=== PATIENT | female | born 1935 | race Caucasian/White ===

== ENCOUNTER 2016-12-23 19:12 | Inpatient (IN) | payer OTHER, MEDICARE ==
--- NOTE | 2016-12-23 20:43 | PDOC ---
History of Present Illness - General History Source: Patient, Family (Son) Exam Limitations: No Limitations - History of Present Illness Initial Comments: 12/23/16 21:42 The patient is an 81 year old female with a significant PMH of HTN who presents to the emergency department after becoming concerned over self-checked blood pressure earlier today. The patient reports checking her blood pressure this evening and noting it was in the 180 range, prompting her visit. The patient son reports that the patient has been checking her blood pressure for about the last 2 weeks after having her medication changed by Dr. Hargrove. The patients son notes that the patient used to take 5 mg Bystolic which was changed to 10 mg Bystolic 2 weeks ago. She also notes that she was prescribed 2.5 mg Amlodipine and another medication which she does not remember 2 weeks ago. The patient reports waking up in the morning and sometimes feeling lightheaded which resolves on its own. The patients son also notes that the patient has complained of a loss of balance about 3 times within the past month. The patient denies any dietary changes. The patient denies trouble sleeping. The patient denies chest pain, shortness of breath, headache and dizziness. Denies fever, chills, nausea, vomit, diarrhea and constipation. Denies dysuria, frequency, urgency and hematuria. Allergies: Codeine Past surgical history: Appendectomy. Social history: No reported cigarette, alcohol, or drug use. PCP: Dr. Chanel Drum Maker: Dr. Hargrove <Jeremías Wheeler - Last Filed: 12/24/16 01:01> <Kinza Jane - Last Filed: 12/24/16 04:40> - General Chief Complaint: Blood Pressure Problem Stated Complaint: HYPERTENSION Time Seen by Provider: 12/23/16 19:34 Past History <Jeremías Wheeler - Last Filed: 12/24/16 01:01> - Past Medical History HTN: Yes - Surgical History Appendectomy: Yes - Suicide/Smoking/Psychosocial Hx Smoking History: Never smoked Have you smoked in the past 12 months: No Information on smoking cessation initiated: No Hx Alcohol Use: No Drug/Substance Use Hx: No Substance Use Type: None <Kinza Jane - Last Filed: 12/24/16 04:40> - Past Medical History Allergies/Adverse Reactions: Allergies Allergy/AdvReac Type Severity Reaction Status Date / Time codeine AdvReac Verified 12/23/16 19:32 Home Medications: Ambulatory Orders Nebivolol [Bystolic -] 10 mg PO DAILY 10/19/13 Amlodipine Besylate [Norvasc -] 2.5 mg PO DAILY 12/24/16 Hydrochlorothiazide 25 mg PO DAILY 12/24/16 Review of Systems - Review of Systems Able to Perform ROS?: Yes Comments:: 12/23/16 21:42 GENERAL/CONSTITUTIONAL: No fever or chills. No weakness. HEAD, EYES, EARS, NOSE AND THROAT: No change in vision. No ear pain or discharge. No sore throat. CARDIOVASCULAR: No chest pain or shortness of breath. RESPIRATORY: No cough, wheezing, or hemoptysis. GASTROINTESTINAL: No nausea, vomiting, diarrhea or constipation. GENITOURINARY: No dysuria, frequency, or change in urination. MUSCULOSKELETAL: No joint or muscle swelling or pain. No neck or back pain. SKIN: No rash NEUROLOGIC: No headache, vertigo, loss of consciousness, or change in strength/ sensation. ENDOCRINE: No increased thirst. No abnormal weight change. HEMATOLOGIC/LYMPHATIC: No anemia, easy bleeding, or history of blood clots. ALLERGIC/IMMUNOLOGIC: No hives or skin allergy. <Jeremías Wheeler - Last Filed: 12/24/16 01:01> *Physical Exam - Vital Signs Last Vital Signs Temp Pulse Resp BP Pulse Ox 97.7 F 73 20 190/88 99 12/23/16 19:32 12/23/16 19:32 12/23/16 19:32 12/23/16 19:32 12/23/16 19:32 - Physical Exam Comments: 12/23/16 21:42 GENERAL: Awake, alert, and fully oriented, in no acute distress HEAD: No signs of trauma EYES: PERRLA, EOMI, sclera anicteric, conjunctiva clear ENT: Auricles normal inspection, hearing grossly normal, nares patent, oropharynx clear without exudates. Moist mucosa NECK: Normal ROM, supple, no lymphadenopathy, JVD, or masses LUNGS: Breath sounds equal, clear to auscultation bilaterally. No wheezes, and no crackles HEART: Regular rate and rhythm, normal S1 and S2, no murmurs, rubs or gallops ABDOMEN: Soft, nontender, normoactive bowel sounds. No guarding, no rebound. No masses EXTREMITIES: Normal range of motion, no edema. No clubbing or cyanosis. No cords, erythema, or tenderness NEUROLOGICAL: Cranial nerves II through XII grossly intact. Normal speech. SKIN: Warm, Dry, normal turgor, no rashes or lesions noted. <Jeremías Wheeler - Last Filed: 12/24/16 01:01> - Vital Signs Last Vital Signs Temp Pulse Resp BP Pulse Ox 97.7 F 73 20 190/88 99 12/23/16 19:32 12/23/16 19:32 12/23/16 19:32 12/23/16 19:32 12/23/16 19:32 <Kinza Jane - Last Filed: 12/24/16 04:40> ED Treatment Course - LABORATORY CBC & Chemistry Diagram: 12/23/16 12:27 12/23/16 23:40 - ADDITIONAL ORDERS Additional order review: 12/23/16 12:27 RBC 4.12 MCV 91.4 MCHC 34.8 RDW 12.7 MPV 7.5 D Neutrophils % 78.9 Lymphocytes % 11.3 D Monocytes % 9.0 Eosinophils % 0.5 Basophils % 0.3 - Additional Consults Consult/PCP: Braeden Hargrove MD (Cardiology) Consult/PCP: Parminder Anderson DO (Nephrology) <Jeremías Wheeler - Last Filed: 12/24/16 01:01> - LABORATORY CBC & Chemistry Diagram: 12/23/16 12:27 12/24/16 02:45 <Kinza Jane - Last Filed: 12/24/16 04:40> Medical Decision Making - Medical Decision Making 12/23/16 22:33 Pt's BP when I examined her 179/80 on right arm and 152/60 on the left arm I paged Dr. Chanel, PMD; he is being covered by the hospitalists today. I spoke to Dr. Barrientos who is covering Dr. Hargrove; he wants us to give amlodipine 5mg for the HTN today, and 10mg amlodipine starting tomorrow. I spoke to Dr. Anderson, renal, who thinks that given pt's mental status is completely normal, this may reflect the fact that she has decreased sodium intake and she may be reacting to the HCTZ/water pill that her conductor freight prescribed for her recently. 12/24/16 04:38 Despite 250ml NSS bolus, pt's serum Na+ felll from 117 to 115. Pt will be admitted to the ICU; Dr. Anderson is aware; ICU BIOFUELS PLANT SUPERINTENDENT is aware; Hospitalist Dr. Galeas is aware. <Kinza Jane - Last Filed: 12/24/16 04:40> *DC/Admit/Observation/Transfer - Attestations Scribe Attestion: 12/23/16 21:42 Documentation prepared by Jeremías Wheeler, acting as biomedical engineering technician for Kinza Jane MD. <Jeremías Wheeler - Last Filed: 12/24/16 01:01> - Discharge Dispostion Admit: Yes <Kinza Jane - Last Filed: 12/24/16 04:40> Diagnosis at time of Disposition: Hyponatremia - Discharge Dispostion Condition at time of disposition: Poor
[2016-12-23 21:32] LABS: BASOPHIL 0.3 % (0-2.0); EOSINOPHIL 0.5 % (0-4.5); MCH 31.9 pg (25.7-33.7); MCHC 34.8 g/dl (32.0-36.0); MEAN CELL VOLUME 91.4 fl (80-96); MEAN PLT VOLUME 7.5 fl (7.5-11.1); NEUTROPHILS 78.9 % (42.8-82.8); PLATELET COUNT 250 K/MM3 (134-434); RDW 12.7 % (11.6-15.6); WHITE BLOOD COUNT 10.1 K/mm3 (4.0-10.0)
[2016-12-23 22:04] LABS: ALBUMIN 3.4 g/dl (3.4-5.0); ANION GAP 12 (8-16); BILIRUBIN,TOTAL 0.5 mg/dL (0.2-1.0); CALCIUM 8.4 mg/dL (8.5-10.1); CO2 26 mmol/L (21-32); CREATININE 0.6 mg/dL (0.55-1.02); GLUCOSE,RANDOM 110 mg/dL (74-106); SGOT/AST 24 U/L (15-37); SGPT/ALT 23 U/L (12-78); TOT PROT 7.1 g/dl (6.4-8.2)
[2016-12-23 22:07] LABS: ALK PHOS 74 U/L (45-117); CPK 204 IU/L (26-192); TROPONIN I < 0.02 ng/ml (0.00-0.05)
[2016-12-23] MEDS ORDERED: SODIUM CHLORIDE 0.9% 500 ML INFUS.BAG IV ONE ×2 (22:09→22:17)
[2016-12-23] MEDS ORDERED: amLODIPine BESYLATE 5 MG TABLET (FP) PO ONE (22:17)
--- NOTE | 2016-12-23 22:17 | CON.CARD ---
Consult Consult Specialty:: Cardiology for Delvin Reason for Consultation:: hyponatremia htn - History of Present Illness History of Present Illness: The patient is an 81 year old female with a significant PMH of HTN who presents to the emergency department after becoming concerned over self-checked blood pressure earlier today. The patient reports checking her blood pressure this evening and noting it was in the 180 range, prompting her visit. The patient son reports that the patient has been checking her blood pressure for about the last 2 weeks after having her medication changed by Dr. Hargrove. The patients son notes that the patient used to take 5 mg Bystolic which was changed to 10 mg Bystolic 2 weeks ago. She also notes that she was prescribed 2.5 mg Amlodipine and another medication which she does not remember 2 weeks ago. The patient reports waking up in the morning and sometimes feeling lightheaded which resolves on its own. The patients son also notes that the patient has complained of a loss of balance about 3 times within the past month. The patient denies chest pain, shortness of breath, headache and dizziness. Denies fever, chills, nausea, vomit, diarrhea and constipation. Denies dysuria, frequency, urgency and hematuria. Allergies: Codeine Past surgical history: Appendectomy. Social history: No reported cigarette, alcohol, or drug use. PCP: Dr. Chanel Roll Up Helper: Dr. Hargrove - History Source History Provided By: Patient, Medical Record - Past Medical History Cardio/Vascular: Yes: HTN - Alcohol/Substance Use Hx Alcohol Use: No - Smoking History Smoking history: Never smoked Have you smoked in the past 12 months: No Home Medications - Allergies Allergies/Adverse Reactions: Allergies Allergy/AdvReac Type Severity Reaction Status Date / Time codeine AdvReac Verified 12/23/16 19:32 - Home Medications Home Medications: Ambulatory Orders Nebivolol [Bystolic -] 10 mg PO DAILY 10/19/13 Amlodipine Besylate [Norvasc -] 2.5 mg PO DAILY 12/24/16 Hydrochlorothiazide 25 mg PO DAILY 12/24/16 Review of Systems - Review of Systems Constitutional: reports: No Symptoms Eyes: reports: No Symptoms HENT: reports: No Symptoms Neck: reports: No Symptoms Cardiovascular: reports: No Symptoms Gastrointestinal: reports: No Symptoms Genitourinary: reports: No Symptoms Breasts: reports: No Symptoms Reported Musculoskeletal: reports: No Symptoms Integumentary: reports: No Symptoms Neurological: reports: Dizziness Endocrine: reports: No Symptoms Hematology/Lymphatic: reports: No Symptoms Psychiatric: reports: No Symptoms Vital Signs: Vital Signs Temperature 97.7 F 12/23/16 19:32 Pulse Rate 73 12/23/16 19:32 Respiratory Rate 20 12/23/16 19:32 Blood Pressure 190/88 12/23/16 19:32 O2 Sat by Pulse Oximetry (%) 99 12/23/16 19:32 Constitutional: Yes: Well Nourished, No Distress, Calm Eyes: Yes: WNL, Conjunctiva Clear, EOM Intact HENT: Yes: WNL, Atraumatic, Normocephalic Neck: Yes: WNL, Supple, Trachea Midline Respiratory: Yes: WNL, Regular, CTA Bilaterally Gastrointestinal: Yes: WNL, Normal Bowel Sounds Renal/: Yes: WNL Cardiovascular: Yes: WNL, Regular Rate and Rhythm Musculoskeletal: Yes: WNL Extremities: Yes: WNL Integumentary: Yes: WNL Neurological: Yes: WNL, Alert, Oriented ...Motor Strength: WNL Psychiatric: Yes: WNL, Alert, Oriented - Other Data Labs, Other Data: CBC, BMP 12/23/16 12:27 12/23/16 21:27 Troponin, BNP 12/23/16 21:27 Troponin I < 0.02 Troponin, BNP 12/23/16 21:27 Troponin I < 0.02 Imaging - Results Chest X-ray: Image Reviewed (no i/e) EKG: Image Reviewed (sr wnl) Assessment/Plan Imp HTN hyponatremia sIADH HCTZ induced? Plan free water restriction Amlodipine 5 mg now than 10 mg daily Renal consult re hyponatremia ICU monitoring Critical care time 70 min
[2016-12-23 22:34] LABS: URINE APPEARANCE SLCLOUDY; URINE BILIRUBIN NEGATIVE (NEGATIVE); URINE BLOOD 1+ (NEGATIVE); URINE COLOR LTYELLOW; URINE GLUCOSE (UA) NEGATIVE (NEGATIVE); URINE KETONE NEGATIVE (NEGATIVE); URINE NITRITE POSITIVE (NEGATIVE); URINE PROTEIN NEGATIVE (NEGATIVE); URINE UROBILINOGEN NEGATIVE mg/dL (0.2-1.0)
[2016-12-23] MEDS ORDERED: amLODIPine BESYLATE 5 MG TABLET (FP) ONE (22:37)
[2016-12-23 22:40] LABS: URINE BACTERIA RARE /hpf (NONE SEEN); URINE RBC 24; URINE WBC 28
[2016-12-23] MEDS ORDERED: CEFTRIAXONE 1 MG in DEXTROSE 5%-WATER - 50 ML IVPB ONE (23:06)
--- NOTE | 2016-12-23 23:24 | HP ---
Admitting History and Physical - Primary Care Physician PCP: Sarah Chanel - Admission Chief Complaint: High blood pressure History of Present Illness: Patient is an 81 year old female with a PMHx of HTN who presented today due to elevated BP of above 190. Patient and patient's son report that a week and a half ago a "water pill" was added to help control her blood pressure. Patient reports since starting the "water pill", in the morning she would feel dizzy and lightheaded. Patient's son reports that patient is very independent and still works every day at the [employer]. When speaking to the ED staff and the patient, the "water pill" that was started was HCTZ. However, patient denies any numbness, loss of consciousness, acute vision changes, dysuria, frequency. History Source: Patient, Family Member Limitations to Obtaining History: No Limitations - Past Medical History Cardiovascular: Yes: HTN - Past Surgical History Past Surgical History: Yes: Appendectomy - Smoking History Smoking history: Never smoked Have you smoked in the past 12 months: No - Alcohol/Substance Use Hx Alcohol Use: No History of Substance Use: reports: None - Social History Usual Living Arrangement: Yes: With Child ADL: Independent Occupation: Works at [employer] History of Recent Travel: No Home Medications - Allergies Allergies/Adverse Reactions: Allergies Allergy/AdvReac Type Severity Reaction Status Date / Time codeine AdvReac Verified 12/23/16 19:32 - Home Medications Home Medications: Ambulatory Orders Nebivolol [Bystolic -] 5 mg PO DAILY 10/19/13 Family Disease History - Family Disease History Family History: Denies Review of Systems - Review of Systems Constitutional: reports: Weakness. denies: Chills, Diaphoresis, Fever, Night Sweats Eyes: denies: Blind Spots, Floaters HENT: reports: No Symptoms. denies: Difficult Swallowing, Hearing Loss, Mouth Swelling Neck: reports: No Symptoms Cardiovascular: reports: No Symptoms. denies: Chest Pain, Edema, Palpitations, Shortness of Breath Respiratory: reports: No Symptoms. denies: Cough, SOB, SOB on Exertion, Wheezing Gastrointestinal: reports: No Symptoms. denies: Abdominal Pain, Bloating, Nausea, Vomiting, Vomiting Blood Genitourinary: reports: No Symptoms. denies: Burning, Discharge, Dysuria, Frequency Musculoskeletal: reports: Back Pain Neurological: reports: Dizziness, Unsteady Gait, Weakness. denies: Change in LOC, Change in Speech, Confusion, Headache, Incoordination, Numbness, Parasthesia, Seizure, Syncope, Tremors Endocrine: reports: No Symptoms. denies: Excessive Sweating, Flushing Psychiatric: reports: No Symptoms. denies: Anxiety, Depression, Hallucinations , Panic Physical Examination Vital Signs: Vital Signs Temperature 97.7 F 12/23/16 19:32 Pulse Rate 73 12/23/16 19:32 Respiratory Rate 20 12/23/16 19:32 Blood Pressure 190/88 12/23/16 19:32 O2 Sat by Pulse Oximetry (%) 99 12/23/16 19:32 Constitutional: Yes: Well Nourished, No Distress, Calm. No: Anxious, Cachectic Eyes: Yes: WNL, Conjunctiva Clear, EOM Intact, PERRL. No: Sclera Icterus, Tearing HENT: Yes: WNL, Atraumatic, Normocephalic Neck: Yes: WNL, Supple, Trachea Midline Cardiovascular: Yes: WNL, Regular Rate and Rhythm. No: Pulse Irregular, Bruit, JVD Respiratory: Yes: WNL, Regular, CTA Bilaterally Gastrointestinal: Yes: WNL, Normal Bowel Sounds, Soft Extremities: Yes: WNL. No: Calf Tenderness Edema: No Peripheral Pulses WNL: Yes ...Motor Strength: WNL Psychiatric: Yes: WNL, Alert, Oriented Labs: CBC, BMP 12/23/16 12:27 12/23/16 21:27 Assessment/Plan Patient is an 81 year old female with a PMHx of HTN who complained of elevated BP readings at home associated with weakness and dizziness in the mornings. Patient was found to have hyponatremia and admitted for further monitoring and management. Severe Hyponatremia with Mild Symptoms -Likely medication induced by HCTZ as patient started this medication a week and a half ago and one of the side effects is hyponatremia -Sodium level of 117 -Only sxs of weakness and dizziness in the morning when she takes the medicine -Free water restriction -Calculated serum osm 246 -Urine osm ordered -TSH ordered -250ml bolus IV NS given in ED -Will repeat BMP in 6 hours -ED contacted renal who recommended to repeat BMP once the 250 bolus of IV NS is given. Also reports that if patient is no severely or moderately symptomatic , no need for 3% saline at this time. HTN Urgency -SBP of 190 -Amlodipine 5mg given in ED -Will continue Amlodipine 10mg daily, as per cardiology -Continue to monitor BP Left lower back pain -Reports that it is chronic but has worsened today -Patient has history of scoliosis -U/A sent to rule out UTI Prophylaxis- Heparin 5000 units SQ Disposition- Will monitor in telemetry. Full H&P to follow Discussed case with Attending, Dr. Brandi Bond, PGY-2 Visit type - Emergency Visit Emergency Visit: Yes ED Registration Date: 12/24/16 Care time: The patient presented to the Emergency Department on the above date and was hospitalized for further evaluation of their emergent condition. - New Patient This patient is new to me today: Yes Date on this admission: 12/24/16 - Critical Care Critical Care patient: Yes Total Critical Care Time (in minutes): 45 Critical Care Statement: The care of this patient involved high complexity decision making to prevent further life threatening deterioration of the patient 's condition and/or to evaluate & treat vital organ system(s) failure or risk of failure.
[2016-12-24 00:15] LABS: ALBUMIN 3.2 g/dl (3.4-5.0); ANION GAP 12 (8-16); BILIRUBIN,TOTAL 0.5 mg/dL (0.2-1.0); CALCIUM 8.2 mg/dL (8.5-10.1); CO2 25 mmol/L (21-32); CREATININE 0.6 mg/dL (0.55-1.02); GLUCOSE,RANDOM 158 mg/dL (74-106); SGOT/AST 23 U/L (15-37); SGPT/ALT 20 U/L (12-78); TOT PROT 6.8 g/dl (6.4-8.2)
[2016-12-24 00:16] LABS: ALK PHOS 70 U/L (45-117)
--- NOTE | 2016-12-24 00:46 | HP ---
CHIEF COMPLAINT: elevated home BP PCP: Dr. Chanel Aerospace Engineer: Dr. Hargrove HISTORY OF PRESENT ILLNESS: 81yo F with PMH of htn presents s/p elevated home BP reading of SBP in 180s. Pt 's htn medication regimen recently (2 weeks ago) adjusted by Aerospace Engineer: HCTZ 25mg daily added, Amlodipine 2.5mg added, and Bystolic increased from 5 to 10mg daily. Since this adjustment pt reports feeling lightheaded in the morning, until she is able to eat some breakfast. Pt checks her BP daily and became concerned about this elevated reading today, prompting her to come to the ER. Pt denies headache, nausea, vomiting, change in vision, chest pain, sob, fever, chills. ER course was notable for: (1) CMP -> Na 117 (2) Norvasc 5mg, NS 250ml (3) Ceftriaxone 1 dose given Recent Travel: denies PAST MEDICAL HISTORY: htn PAST SURGICAL HISTORY: appendectomy Social History: Smoking: denies Alcohol: denies Drugs: denies Independent for ADLs. Allergies codeine Adverse Reaction (Verified 12/23/16 19:32) HOME MEDICATIONS: Home Medications Medication Instructions Recorded Nebivolol [Bystolic -] 5 mg PO DAILY 10/19/13 REVIEW OF SYSTEMS CONSTITUTIONAL: weakness Absent: fever, chills, diaphoresis, malaise, loss of appetite, weight change HEENT: Absent: rhinorrhea, nasal congestion, throat pain, difficulty swallowing, mouth swelling, ear pain, eye pain, visual changes CARDIOVASCULAR: Absent: chest pain, syncope, palpitations, irregular heart rate, lightheadedness , peripheral edema RESPIRATORY: Absent: cough, shortness of breath, dyspnea with exertion, wheezing, stridor GASTROINTESTINAL: Absent: abdominal pain, abdominal distension, nausea, vomiting, diarrhea, constipation, melena, hematochezia GENITOURINARY: Absent: dysuria, frequency, urgency, hesitancy, hematuria MUSCULOSKELETAL: back pain SKIN: Absent: rash, itching, pallor HEMATOLOGIC/IMMUNOLOGIC: Absent: easy bleeding, easy bruising, lymphadenopathy, frequent infections ENDOCRINE: Absent: unexplained weight gain, unexplained weight loss, heat intolerance, cold intolerance NEUROLOGIC: unsteady gait Absent: headache, dizziness, focal weakness or paresthesias, seizure, mental status changes PSYCHIATRIC: Absent: anxiety, depression, hallucinations. PHYSICAL EXAMINATION Vital Signs - 24 hr 12/23/16 19:32 Temperature 97.7 F Pulse Rate 73 Respiratory 20 Rate Blood Pressure 190/88 O2 Sat by Pulse 99 Oximetry (%) GENERAL: WNWD, Awake, alert, and fully oriented, in no acute distress. HEAD: Normal with no signs of trauma. EYES: Extraocular movements intact, sclera anicteric, conjunctiva clear. No lid lag. EARS, NOSE, THROAT: Oropharynx clear without exudates. Moist mucous membranes. NECK: Supple without lymphadenopathy, JVD, or masses. LUNGS: Breath sounds equal, clear to auscultation bilaterally. No wheezes, and no crackles. No accessory muscle use. HEART: Regular rate and rhythm, normal S1 and S2 without murmur, rub or gallop. ABDOMEN: Soft, nontender, not distended, normoactive bowel sounds, no guarding, no rebound, no masses. LOWER EXTREMITIES: Warm, well-perfused. No calf tenderness. No peripheral edema. NEUROLOGICAL: Cranial nerves II-XII intact. Normal speech. PSYCHIATRIC: Cooperative. Good eye contact. Appropriate mood and affect. SKIN: Warm, dry, normal turgor, no rashes or lesions noted, normal capillary refill. Laboratory Results - last 24 hr 12/23/16 12/23/16 12/23/16 12:27 21:27 21:45 WBC 10.1 H RBC 4.12 Hgb 13.1 Hct 37.7 MCV 91.4 MCH 31.9 MCHC 34.8 RDW 12.7 Plt Count 250 MPV 7.5 D Neutrophils % 78.9 Lymphocytes % 11.3 D Monocytes % 9.0 Eosinophils % 0.5 Basophils % 0.3 Sodium 117 L* D Potassium 3.7 Chloride 79 L D Carbon Dioxide 26 Anion Gap 12 BUN 15 Creatinine 0.6 D Creat Clearance w eGFR > 60 Random Glucose 110 H Calcium 8.4 L Total Bilirubin 0.5 D AST 24 ALT 23 Alkaline Phosphatase 74 D Creatine Kinase 204 H Creatine Kinase Index 2.9 CK-MB (CK-2) 6.009 H Troponin I < 0.02 Total Protein 7.1 Albumin 3.4 Urine Color Ltyellow Urine Appearance Slcloudy Urine pH 8.0 Ur Specific Warren 1.009 Urine Protein Negative Urine Glucose (UA) Negative Urine Ketones Negative Urine Blood 1+ H Urine Nitrite Positive Urine Bilirubin Negative Urine Urobilinogen Negative Urine WBC (Auto) 28 Urine RBC (Auto) 24 Urine Bacteria Rare Ur Random Sodium 12/23/16 12/23/16 22:12 23:40 WBC RBC Hgb Hct MCV MCH MCHC RDW Plt Count MPV Neutrophils % Lymphocytes % Monocytes % Eosinophils % Basophils % Sodium 115 L* Potassium 3.4 L Chloride 78 L Carbon Dioxide 25 Anion Gap 12 BUN 14 Creatinine 0.6 Creat Clearance w eGFR > 60 Random Glucose 158 H D Calcium 8.2 L Total Bilirubin 0.5 AST 23 ALT 20 Alkaline Phosphatase 70 Creatine Kinase Creatine Kinase Index CK-MB (CK-2) Troponin I Total Protein 6.8 Albumin 3.2 L Urine Color Urine Appearance Urine pH Ur Specific Warren Urine Protein Urine Glucose (UA) Urine Ketones Urine Blood Urine Nitrite Urine Bilirubin Urine Urobilinogen Urine WBC (Auto) Urine RBC (Auto) Urine Bacteria Ur Random Sodium 121 ASSESSMENT/PLAN: 81yo F with PMH of htn presents s/p elevated home BP reading of SBP in 180s, found to by hyponatremic admitted to ICU for observation. # htn urgency - Norvasc 5mg given in ER -> BP 140/82 00:51 - Norvasc 10mg daily initiated - Cardiology (Dr. Barrientos) recs appreciated # hypotonic euvolemic hyponatremia with mild symptoms - likely 2/2 new HCTZ medication - free water restriction - serum osmolality 246L - urine osmolality 397 wnl - urine sodium 121 - goal for sodium correction <8 mmol/L per day to avoid osmotic demyelination syndrome - f/u Head CT - f/u bmp, TSH - consider 3% hypertonic saline if symptoms worsen # back pain - likely 2/2 sciatica based on description that pain shoots down Left leg and is relieved with a heating pad - f/u UA to r/o UTI # FEN - Fluids: free water restriction - Electrolytes: hyponatremic, continue to monitor - Nutrition: sodium controlled diet # DVT prophylaxis - Heparin 5,000U SQ TID Visit type - Emergency Visit Emergency Visit: Yes Care time: The patient presented to the Emergency Department on the above date and was hospitalized for further evaluation of their emergent condition. - New Patient This patient is new to me today: Yes Date on this admission: 12/24/16 - Critical Care Critical Care patient: No
[2016-12-24 00:53] LABS: OSMOLALITY,SERUM 246 mosm/kg (278-305)
[2016-12-24] MEDS ORDERED: POTASSIUM CHLORIDE TABS 20 MEQ TABLET.ER (FP) PO ONE (01:23)
[2016-12-24] MEDS ORDERED: SODIUM CHLORIDE 1 GM TABLET PO ONE ×2 (01:23→01:34)
[2016-12-24 01:45] VITALS: BMI 25.6
--- NOTE | 2016-12-24 01:55 | CONSULT ---
Consult Consult Specialty:: Pulm/CCM Reason for Consultation:: Severe Hyponatremia - History of Present Illness Chief Complaint: Fatigue History of Present Illness: 81yow with PMHx of HTN presents s/p elevated home BP reading of SBP in 180s. Pt 's htn medication regimen ~2 weeks ago was adjusted by [employer]. Thought to be HCTZ added and Amlodipine 2.5mg and Bystolic increased from 5 to 10mg daily. Since this adjustment pt reports feeling lightheaded in the morning, which resolves on its own after eating. Son also reports loss of balance and falls . latest 11/21. She checks her BP daily and became concerned about this elevated reading of SBP 180's prompting her to come to the ER. Pt denies headache, change in vision, chest pain, sob, fever, chills. In the ED T 97.7, BP 190/88, HR 73 O2sat 99% on room air. Labs notable for Na 117, Cl 79, K3.7, serum osm 246, urine osm 397, urine Na 121. NS 250cc bolus trial given with Na down to 115. Master Carpenter Dr Anderson consulted. Pt refused CT head. of note last CTH 11/23 shows no intracranial pathology and chronic cerebellar infarct. Being transferred to ICU for further management. In ICU rec'd A+O x3 VS BP 173/58, HR 65, O2 sat 99% on room air. Had no c/o of lightheadedness, headache, change in vision, chest pain. Na CL 1G po ordered as per nephrology with fluid restriction of 500cc/d. KCL repletion given. - History Source History Provided By: Patient, Medical Record Limitations to Obtaining History: No Limitations - Past Medical History Cardio/Vascular: Yes: HTN - Past Surgical History Past Surgical History: Yes: Appendectomy - Alcohol/Substance Use Hx Alcohol Use: No History of Substance Use: reports: None - Smoking History Smoking history: Never smoked Have you smoked in the past 12 months: No - Social History ADL: Independent Occupation: Works at [employer] History of Recent Travel: No Home Medications - Allergies Allergies/Adverse Reactions: Allergies Allergy/AdvReac Type Severity Reaction Status Date / Time codeine AdvReac Verified 12/23/16 19:32 - Home Medications Home Medications: Ambulatory Orders Nebivolol [Bystolic -] 10 mg PO DAILY 10/19/13 Amlodipine Besylate [Norvasc -] 2.5 mg PO DAILY 12/24/16 Hydrochlorothiazide 25 mg PO DAILY 12/24/16 Family Disease History - Family Disease History Family History: Unremarkable Review of Systems - Review of Systems Constitutional: reports: No Symptoms Eyes: reports: No Symptoms HENT: reports: No Symptoms Neck: reports: No Symptoms Cardiovascular: reports: No Symptoms Respiratory: reports: No Symptoms Gastrointestinal: reports: No Symptoms Genitourinary: reports: No Symptoms Musculoskeletal: reports: No Symptoms Neurological: reports: Other (lightheadedness) Endocrine: reports: No Symptoms Hematology/Lymphatic: reports: No Symptoms Psychiatric: reports: No Symptoms Physical Exam Vital Signs: Vital Signs Temperature 97.7 F 12/23/16 19:32 Pulse Rate 82 12/24/16 00:51 Respiratory Rate 20 12/23/16 19:32 Blood Pressure 140/82 12/24/16 00:51 O2 Sat by Pulse Oximetry (%) 99 12/23/16 19:32 Constitutional: Yes: Well Nourished, No Distress Eyes: Yes: Conjunctiva Clear HENT: Yes: Atraumatic, Normocephalic Neck: Yes: Supple Cardiovascular: Yes: Regular Rate and Rhythm Respiratory: Yes: Regular, CTA Bilaterally Gastrointestinal: Yes: Normal Bowel Sounds, Soft Renal/: Yes: WNL Extremities: Yes: WNL Edema: No Peripheral Pulses WNL: Yes Integumentary: Yes: WNL Neurological: Yes: Alert, Oriented ...Motor Strength: WNL Psychiatric: Yes: Alert, Oriented Labs: CBC, BMP 12/23/16 12:27 12/23/16 23:40 CBC,CMP WBC 10.1 K/mm3 (4.0-10.0) H 12/23/16 12:27 RBC 4.12 M/mm3 (3.60-5.2) 12/23/16 12:27 Hgb 13.1 GM/dL (10.7-15.3) 12/23/16 12:27 Hct 37.7 % (32.4-45.2) 12/23/16 12:27 MCV 91.4 fl (80-96) 12/23/16 12:27 MCH 31.9 pg (25.7-33.7) 12/23/16 12:27 MCHC 34.8 g/dl (32.0-36.0) 12/23/16 12:27 RDW 12.7 % (11.6-15.6) 12/23/16 12:27 Plt Count 250 K/MM3 (134-434) 12/23/16 12:27 MPV 7.5 fl (7.5-11.1) D 12/23/16 12:27 Neutrophils % 78.9 % (42.8-82.8) 12/23/16 12:27 Lymphocytes % 11.3 % (8-40) D 12/23/16 12:27 Monocytes % 9.0 % (3.8-10.2) 12/23/16 12:27 Eosinophils % 0.5 % (0-4.5) 12/23/16 12:27 Basophils % 0.3 % (0-2.0) 12/23/16 12:27 Sodium 115 mmol/L (136-145) L* 12/23/16 23:40 Potassium 3.4 mmol/L (3.5-5.1) L 12/23/16 23:40 Chloride 78 mmol/L (98-107) L 12/23/16 23:40 Carbon Dioxide 25 mmol/L (21-32) 12/23/16 23:40 Anion Gap 12 (8-16) 12/23/16 23:40 BUN 14 mg/dL (7-18) 12/23/16 23:40 Creatinine 0.6 mg/dL (0.55-1.02) 12/23/16 23:40 Creat Clearance w eGFR > 60 (>60) 12/23/16 23:40 Random Glucose 158 mg/dL (74-106) H D 12/23/16 23:40 Serum Osmolality 246 mosm/kg (278-305) L 12/23/16 22:15 Calcium 8.2 mg/dL (8.5-10.1) L 12/23/16 23:40 Total Bilirubin 0.5 mg/dL (0.2-1.0) 12/23/16 23:40 AST 23 U/L (15-37) 12/23/16 23:40 ALT 20 U/L (12-78) 12/23/16 23:40 Alkaline Phosphatase 70 U/L (45-117) 12/23/16 23:40 Creatine Kinase 204 IU/L (26-192) H 12/23/16 21:27 Creatine Kinase Index 2.9 % (0.0-5.0) 12/23/16 21:27 CK-MB (CK-2) 6.009 ng/mL (0.5-3.6) H 12/23/16 21:27 Troponin I < 0.02 ng/ml (0.00-0.05) 12/23/16 21:27 Total Protein 6.8 g/dl (6.4-8.2) 12/23/16 23:40 Albumin 3.2 g/dl (3.4-5.0) L 12/23/16 23:40 Active Medications Amlodipine Besylate (Norvasc -) 10 mg PO DAILY [facility] Heparin Sodium (Porcine) (Heparin -) 5,000 unit SQ TID [facility] Vital Signs Period Temp Pulse Resp BP Sys/Cantor Pulse Ox Last 24 Hr 97.7 F-98.4 F 65-82 20-21 140-190/58-88 95-99 Assessment/Plan 81 esteban with PMHX of HTN on new treatment regimen including thiazide presents with severe hypotonic hyponatremia 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 Plan: Nephrology following, apprec recs -Hold NS infusion as showed worsening hypoNa -Hold thiazide -NaCl tabs 1gm -Fluid restriction to 500cc/d -Na goal increase 10-12 -BMP q2 -Replete potassium -Neuro checks q2 -Cont amlodipine for BP control -F/u thyroid studies -Check am cortisol level -DVT prophylaxis Rosalina Juares, GUERO CC time 35mins
[2016-12-24 02:42] LABS: THYROID STIMULATING HORMONE 1.99 uIU/ml (0.358-3.74)
[2016-12-24] MEDS ORDERED: ACETAMINOPHEN 325 MG TABLET (FP) PO PRN (02:44)
[2016-12-24 03:28] LABS: ANION GAP 11 (8-16); CALCIUM 7.9 mg/dL (8.5-10.1); CO2 27 mmol/L (21-32); CREATININE 0.6 mg/dL (0.55-1.02); GLUCOSE,RANDOM 103 mg/dL (74-106)
--- NOTE | 2016-12-24 05:21 | PN ---
Teaching Attending Note Name of Resident: Meena Nagel ATTENDING PHYSICIAN STATEMENT I saw and evaluated the patient. I reviewed the resident's note and discussed the case with the resident. I agree with the resident's findings and plan as documented. SUBJECTIVE: 81 presented to ED complaining of elevated BP and dizziness or evaluation found to have low sodium. Denies chest pain, palpitations or SOB. No prior episodes. ROS: All systems reviewed and negative other than mentioned in HPI OBJECTIVE: GEN: A&Ox3 HEENT: NC, AT< PERRLA, EOMI no nystagmus, MMM, no JVD CVS:RRR, S1, S2, no M/G/R LUNGS: CTA no wheeze or rales ABD: Soft NT, ND, BS+ no H/Smegaly EXT:no edema, 2+ pulses NEURO: C2-12 intact no focal deficits CBCD WBC 10.1 K/mm3 (4.0-10.0) H 12/23/16 12:27 RBC 4.12 M/mm3 (3.60-5.2) 12/23/16 12:27 Hgb 13.1 GM/dL (10.7-15.3) 12/23/16 12:27 Hct 37.7 % (32.4-45.2) 12/23/16 12:27 MCV 91.4 fl (80-96) 12/23/16 12:27 MCHC 34.8 g/dl (32.0-36.0) 12/23/16 12:27 RDW 12.7 % (11.6-15.6) 12/23/16 12:27 Plt Count 250 K/MM3 (134-434) 12/23/16 12:27 MPV 7.5 fl (7.5-11.1) D 12/23/16 12:27 CMP Sodium 116 mmol/L (136-145) L* 12/24/16 02:45 Potassium 3.5 mmol/L (3.5-5.1) 12/24/16 02:45 Chloride 78 mmol/L (98-107) L 12/24/16 02:45 Carbon Dioxide 27 mmol/L (21-32) 12/24/16 02:45 Anion Gap 11 (8-16) 12/24/16 02:45 BUN 14 mg/dL (7-18) 12/24/16 02:45 Creatinine 0.6 mg/dL (0.55-1.02) 12/24/16 02:45 Creat Clearance w eGFR > 60 (>60) 12/23/16 23:40 Random Glucose 103 mg/dL (74-106) D 12/24/16 02:45 Calcium 7.9 mg/dL (8.5-10.1) L 12/24/16 02:45 Total Bilirubin 0.5 mg/dL (0.2-1.0) 12/23/16 23:40 AST 23 U/L (15-37) 12/23/16 23:40 ALT 20 U/L (12-78) 12/23/16 23:40 Alkaline Phosphatase 70 U/L (45-117) 12/23/16 23:40 Total Protein 6.8 g/dl (6.4-8.2) 12/23/16 23:40 Albumin 3.2 g/dl (3.4-5.0) L 12/23/16 23:40 CARDIAC ENZYMES Creatine Kinase 204 IU/L (26-192) H 12/23/16 21:27 Troponin I < 0.02 ng/ml (0.00-0.05) 12/23/16 21:27 ASSESSMENT AND PLAN: Profound Hyponatremia- r/o SIADH Given trial of IVF NS 250cc however sodium trended down. Do not correct more than 10 mml/day Fluid restrictions URine osmolality, Urine sodium, TSH,Lipid panel Nephrology consult appreciated, will add sodium chloride tablet Repeat BMP q6h CXR Hypertensive Urgency/ HTN- Now controlled continue home medications Nevibilol and norvasc. HGBA1C DVT prophylaxis Critical Care Total Critical Care Time (in minutes): 45 Critical Care Statement: The care of this patient involved high complexity decision making to prevent further life threatening deterioration of the patient 's condition and/or to evaluate & treat vital organ system(s) failure or risk of failure.
[2016-12-24] MEDS ORDERED: CYCLOBENZAPRINE HCL 5 MG TABLET PO ONE (06:00)
[2016-12-24 06:33] LABS: ANION GAP 13 (8-16); CALCIUM 8.4 mg/dL (8.5-10.1); CO2 24 mmol/L (21-32); CREATININE 0.5 mg/dL (0.55-1.02); GLUCOSE,RANDOM 100 mg/dL (74-106)
[2016-12-24] MEDS: HEPARIN NA (PORCINE) 5,000 UNITS/ML 1ML VIAL SQ SCH ×3 (06:53→23:03)
--- NOTE | 2016-12-24 07:41 | CON.NEP ---
Consult Consult Specialty:: Nephrology Referred by:: Dr. Paz Reason for Consultation:: Hyponatremia - History of Present Illness Chief Complaint: High BP, dizziness History of Present Illness: This is a 81 year old woman with PMhx of Hypertension who presented with complaints of high BP at home and dizziness and found to have Na of 117. Pt reports recently being started on HCTZ for hypertension. Denies any AMS, confusion, lethargy, weakness, ANGELES, Seizures. Pt reports that she had been eating and drinking normally. Drinks about 3 12oz bottles of water daily. No fever, chills, cough, N/V/D, Abd pain. - History Source History Provided By: Patient Limitations to Obtaining History: No Limitations - Past Medical History Cardio/Vascular: Yes: HTN - Past Surgical History Past Surgical History: Yes: Appendectomy - Alcohol/Substance Use Hx Alcohol Use: No History of Substance Use: reports: None - Smoking History Smoking history: Never smoked Have you smoked in the past 12 months: No - Social History ADL: Independent Occupation: Works at [employer] History of Recent Travel: No Home Medications - Allergies Allergies/Adverse Reactions: Allergies Allergy/AdvReac Type Severity Reaction Status Date / Time codeine AdvReac Verified 12/23/16 19:32 - Home Medications Home Medications: Ambulatory Orders Nebivolol [Bystolic -] 10 mg PO DAILY 10/19/13 Amlodipine Besylate [Norvasc -] 2.5 mg PO DAILY 12/24/16 Hydrochlorothiazide 25 mg PO DAILY 12/24/16 Review of Systems - Review of Systems Constitutional: reports: No Symptoms Eyes: reports: No Symptoms HENT: reports: No Symptoms Neck: reports: No Symptoms Cardiovascular: reports: No Symptoms Respiratory: reports: No Symptoms Gastrointestinal: reports: No Symptoms Genitourinary: reports: No Symptoms Musculoskeletal: reports: No Symptoms Neurological: reports: No Symptoms Endocrine: reports: No Symptoms Nephrology Consult - Height Height: 5 ft 3 in - Weight Weight: 65.635 kg - BMI Body Mass Index (BMI): 25.6 - Lab Results CBC,BMP: CBC, BMP 12/23/16 12:27 12/24/16 05:50 Anion Gap: Anion Gap Anion Gap 13 (8-16) 12/24/16 05:50 - Imaging Chest X-ray: Report Reviewed - Physical Examination Vital Signs: Vital Signs Temperature 98.5 F 12/24/16 06:00 Pulse Rate 71 12/24/16 06:00 Respiratory Rate 18 12/24/16 06:00 Blood Pressure 147/59 12/24/16 06:00 O2 Sat by Pulse Oximetry (%) 95 12/24/16 01:34 Constitutional: Yes: Well Nourished, No Distress Eyes: Yes: Conjunctiva Clear HENT: Yes: Atraumatic Neck: Yes: Supple Cardiovascular: Yes: Regular Rate and Rhythm Respiratory: Yes: Regular, CTA Bilaterally, Rhonchi (right lower lobe) Gastrointestinal: Yes: Normal Bowel Sounds Extremities: No: Cold, Cool, Cyanosis Edema: No Neurological: Yes: Alert, Oriented, Cran Nerves II-XII Intact Assessment/Plan 81 year old woman with PMhx of Hypertension who presented with complaints of high BP at home and dizziness and found to have Na of 117. #Hyponatremia Etiology appears to be excess ADH secretion in setting of HCTZ pt appear evolemic and serum na decreased after 250 of NS in the ED urine studies show high urine Na and high urine osm consistent with ADH release no indication for 3% saline at this time continue salt tabs 1g BID repeat Na at noon #Hypertensive urgency Continue Amlodpine 10mg can add beta hakan if BP consistency > 150/90 regular diet for now given low Na Thank you Will follow Parminder Anderson DO Current Medications Acetaminophen (Tylenol -) 650 mg PO Q6H PRN PRN Reason: FEVER OR PAIN Amlodipine Besylate (Norvasc -) 10 mg PO DAILY [facility] Heparin Sodium (Porcine) (Heparin -) 5,000 unit SQ TID [facility] Last Admin: 12/24/16 06:53 Dose: 5,000 unit Pantoprazole Sodium (Protonix -) 20 mg PO DAILY [facility]
[2016-12-24] MEDS ORDERED: PT OWN MED DRAWER 7, Y5N ONE (08:27)
[2016-12-24] MEDS: amLODIPine BESYLATE 10 MG TABLET (FP) PO SCH (09:20)
[2016-12-24] MEDS: SODIUM CHLORIDE 1 GM TABLET PO SCH ×3 (09:20→23:03)
[2016-12-24] MEDS: PANTOPRAZOLE 20 MG TABLET (FP) PO SCH (09:20)
[2016-12-24 09:25] LABS: URIC ACID 2.3 mg/dL (2.6-7.2)
[2016-12-24 09:41] LABS: THYROID STIMULATING HORMONE 1.99 uIU/ml (0.358-3.74)
[2016-12-24 09:56] LABS: ANION GAP 10 (8-16); CALCIUM 8.1 mg/dL (8.5-10.1); CO2 26 mmol/L (21-32); CREATININE 0.7 mg/dL (0.55-1.02); GLUCOSE,RANDOM 158 mg/dL (74-106)
--- NOTE | 2016-12-24 10:22 | PN ---
Progress Note, Physician History of Present Illness: The patient is an 81 year old female with a significant PMH of HTN who presents to the emergency department after becoming concerned over self-checked blood pressure earlier today. The patient reports checking her blood pressure this evening and noting it was in the 180 range, prompting her visit. The patient son reports that the patient has been checking her blood pressure for about the last 2 weeks after having her medication changed by Dr. Hargrove. The patients son notes that the patient used to take 5 mg Bystolic which was changed to 10 mg Bystolic 2 weeks ago. She also notes that she was prescribed 2.5 mg Amlodipine and another medication which she does not remember 2 weeks ago. The patient reports waking up in the morning and sometimes feeling lightheaded which resolves on its own. The patients son also notes that the patient has complained of a loss of balance about 3 times within the past month. The patient denies chest pain, shortness of breath, headache and dizziness. Denies fever, chills, nausea, vomit, diarrhea and constipation. Denies dysuria, frequency, urgency and hematuria. Allergies: Codeine Past surgical history: Appendectomy. Social history: No reported cigarette, alcohol, or drug use. PCP: Dr. Chanel Al[employer]um Boats Assembler: Dr. Hargrove - Current Medication List Current Medications: Active Medications Acetaminophen (Tylenol -) 650 mg PO Q6H PRN PRN Reason: FEVER OR PAIN Amlodipine Besylate (Norvasc -) 10 mg PO DAILY [facility] Last Admin: 12/24/16 09:20 Dose: 10 mg Heparin Sodium (Porcine) (Heparin -) 5,000 unit SQ TID [facility] Last Admin: 12/24/16 06:53 Dose: 5,000 unit Pantoprazole Sodium (Protonix -) 20 mg PO DAILY [facility] Last Admin: 12/24/16 09:20 Dose: 20 mg Sodium Chloride (Sodium Chloride Tablet -) 1 gm PO BID [facility] Last Admin: 12/24/16 10:13 Dose: 1 gm - Objective Vital Signs: Vital Signs Temperature 98.4 F 12/24/16 08:57 Pulse Rate 67 12/24/16 08:57 Respiratory Rate 18 12/24/16 08:57 Blood Pressure 134/59 12/24/16 08:57 O2 Sat by Pulse Oximetry (%) 95 12/24/16 08:56 Eyes: Yes: WNL, Conjunctiva Clear, EOM Intact HENT: Yes: WNL, Atraumatic, Normocephalic Neck: Yes: WNL, Supple, Trachea Midline Cardiovascular: Yes: WNL, Regular Rate and Rhythm Respiratory: Yes: WNL, Regular, CTA Bilaterally Gastrointestinal: Yes: WNL, Normal Bowel Sounds Genitourinary: Yes: WNL Musculoskeletal: Yes: WNL Extremities: Yes: WNL Edema: No Integumentary: Yes: WNL Neurological: Yes: WNL, Alert, Oriented ...Motor Strength: WNL Psychiatric: Yes: WNL Labs: CBC, BMP 12/23/16 12:27 12/24/16 09:31 Laboratory Tests 12/23/16 12/23/16 12/23/16 12:27 21:27 21:45 WBC 10.1 H RBC 4.12 Hgb 13.1 Hct 37.7 MCV 91.4 MCH 31.9 MCHC 34.8 RDW 12.7 Plt Count 250 MPV 7.5 D Neutrophils % 78.9 Lymphocytes % 11.3 D Monocytes % 9.0 Eosinophils % 0.5 Basophils % 0.3 Sodium 117 L* D Potassium 3.7 Chloride 79 L D Carbon Dioxide 26 Anion Gap 12 BUN 15 Creatinine 0.6 D Creat Clearance w eGFR > 60 Random Glucose 110 H Serum Osmolality Uric Acid Calcium 8.4 L Total Bilirubin 0.5 D AST 24 ALT 23 Alkaline Phosphatase 74 D Creatine Kinase 204 H Creatine Kinase Index 2.9 CK-MB (CK-2) 6.009 H Troponin I < 0.02 Total Protein 7.1 Albumin 3.4 Triglycerides Cholesterol Total LDL Cholesterol HDL Cholesterol TSH Urine Color Ltyellow Urine Appearance Slcloudy Urine pH 8.0 Ur Specific [place] 1.009 Urine Protein Negative Urine Glucose (UA) Negative Urine Ketones Negative Urine Blood 1+ H Urine Nitrite Positive Urine Bilirubin Negative Urine Urobilinogen Negative Urine WBC (Auto) 28 Urine RBC (Auto) 24 Urine Bacteria Rare Urine Osmolality Ur Random Sodium 12/23/16 12/23/16 12/23/16 22:12 22:15 23:40 WBC RBC Hgb Hct MCV MCH MCHC RDW Plt Count MPV Neutrophils % Lymphocytes % Monocytes % Eosinophils % Basophils % Sodium 115 L* Potassium 3.4 L Chloride 78 L Carbon Dioxide 25 Anion Gap 12 BUN 14 Creatinine 0.6 Creat Clearance w eGFR > 60 Random Glucose 158 H D Serum Osmolality 246 L Uric Acid Calcium 8.2 L Total Bilirubin 0.5 AST 23 ALT 20 Alkaline Phosphatase 70 Creatine Kinase Creatine Kinase Index CK-MB (CK-2) Troponin I Total Protein 6.8 Albumin 3.2 L Triglycerides Cholesterol Total LDL Cholesterol HDL Cholesterol TSH 1.99 Urine Color Urine Appearance Urine pH Ur Specific [place] Urine Protein Urine Glucose (UA) Urine Ketones Urine Blood Urine Nitrite Urine Bilirubin Urine Urobilinogen Urine WBC (Auto) Urine RBC (Auto) Urine Bacteria Urine Osmolality 397 Ur Random Sodium 121 12/24/16 12/24/16 12/24/16 02:45 05:50 05:50 WBC RBC Hgb Hct MCV MCH MCHC RDW Plt Count MPV Neutrophils % Lymphocytes % Monocytes % Eosinophils % Basophils % Sodium 116 L* 115 L* Potassium 3.5 3.6 Chloride 78 L 78 L Carbon Dioxide 27 24 Anion Gap 11 13 BUN 14 12 Creatinine 0.6 0.5 L Creat Clearance w eGFR Random Glucose 103 D 100 Serum Osmolality Uric Acid 2.3 L Calcium 7.9 L 8.4 L Total Bilirubin AST ALT Alkaline Phosphatase Creatine Kinase Creatine Kinase Index CK-MB (CK-2) Troponin I Total Protein Albumin Triglycerides 60 Cholesterol 180 Total LDL Cholesterol 110 H HDL Cholesterol 63 H TSH 1.99 Urine Color Urine Appearance Urine pH Ur Specific [place] Urine Protein Urine Glucose (UA) Urine Ketones Urine Blood Urine Nitrite Urine Bilirubin Urine Urobilinogen Urine WBC (Auto) Urine RBC (Auto) Urine Bacteria Urine Osmolality Ur Random Sodium 12/24/16 12/24/16 08:40 09:31 WBC RBC Hgb Hct MCV MCH MCHC RDW Plt Count MPV Neutrophils % Lymphocytes % Monocytes % Eosinophils % Basophils % Sodium 115 L* Potassium 3.9 Chloride 79 L Carbon Dioxide 26 Anion Gap 10 BUN 13 Creatinine 0.7 D Creat Clearance w eGFR Random Glucose 158 H D Serum Osmolality Uric Acid Cancelled Calcium 8.1 L Total Bilirubin AST ALT Alkaline Phosphatase Creatine Kinase Creatine Kinase Index CK-MB (CK-2) Troponin I Total Protein Albumin Triglycerides Cholesterol Total LDL Cholesterol HDL Cholesterol TSH Cancelled Urine Color Urine Appearance Urine pH Ur Specific [place] Urine Protein Urine Glucose (UA) Urine Ketones Urine Blood Urine Nitrite Urine Bilirubin Urine Urobilinogen Urine WBC (Auto) Urine RBC (Auto) Urine Bacteria Urine Osmolality Ur Random Sodium Assessment/Plan Imp HTN hyponatremia - worsening sIADH HCTZ induced? Plan free water restriction, salt tablets Amlodipine 5 mg now than 10 mg daily Renal consult re hyponatremia ICU monitoring Critical care time 35min
[2016-12-24 12:21] LABS: URINE LEUK ESTERASE 1+ (NEGATIVE)
[2016-12-25 03:35] LABS: MCH 31.8 pg (25.7-33.7); MCHC 34.8 g/dl (32.0-36.0); MEAN CELL VOLUME 91.5 fl (80-96); MEAN PLT VOLUME 7.8 fl (7.5-11.1); PLATELET COUNT 247 K/MM3 (134-434); RDW 13.3 % (11.6-15.6); WHITE BLOOD COUNT 9.8 K/mm3 (4.0-10.0)
[2016-12-25 04:03] LABS: ALBUMIN 3.1 g/dl (3.4-5.0); ANION GAP 11 (8-16); CALCIUM 8.5 mg/dL (8.5-10.1); CO2 24 mmol/L (21-32); CREATININE 0.6 mg/dL (0.55-1.02); GLUCOSE,RANDOM 88 mg/dL (74-106); SGOT/AST 21 U/L (15-37); SGPT/ALT 19 U/L (12-78)
[2016-12-25 04:06] LABS: ALK PHOS 69 U/L (45-117); BILIRUBIN,TOTAL 0.6 mg/dL (0.2-1.0); TOT PROT 6.4 g/dl (6.4-8.2)
[2016-12-25] MEDS: HEPARIN NA (PORCINE) 5,000 UNITS/ML 1ML VIAL SQ SCH ×3 (06:26→21:04)
--- NOTE | 2016-12-25 09:28 | PN ---
Progress Note (short form) - Note Progress Note: Renal Follow up for Hyponatremia Pt seen and examined in the ICU awake and alert no N/V, confusion, lethargy, weakness, seizures eating well making urine Vital Signs Temperature 98.6 F 12/25/16 06:13 Pulse Rate 65 12/25/16 06:13 Respiratory Rate 18 12/25/16 06:13 Blood Pressure 144/73 12/25/16 06:13 O2 Sat by Pulse Oximetry (%) 96 12/24/16 20:37 Intake & Output 12/22/16 12/23/16 12/24/16 12/25/16 23:59 23:59 23:59 23:59 Intake Total 450 50 Output Total 25 Balance 425 50 Weight 68.039 kg 65.635 kg 65.771 kg NAD, awake and alert RRR, NO M/R CTA, no rales, wheeze soft NT/ND No LE edema CBC, BMP 12/25/16 03:00 12/25/16 03:00 Current Medications Acetaminophen (Tylenol -) 650 mg PO Q6H PRN PRN Reason: FEVER OR PAIN Amlodipine Besylate (Norvasc -) 10 mg PO DAILY [facility] Last Admin: 12/24/16 09:20 Dose: 10 mg Heparin Sodium (Porcine) (Heparin -) 5,000 unit SQ TID [facility] Last Admin: 12/25/16 06:26 Dose: 5,000 unit Pantoprazole Sodium (Protonix -) 20 mg PO DAILY [facility] Last Admin: 12/24/16 09:20 Dose: 20 mg Sodium Chloride (Sodium Chloride Tablet -) 1 gm PO BID [facility] Last Admin: 12/24/16 23:03 Dose: 1 gm 81 year old woman with PMhx of Hypertension who presented with complaints of high BP at home and dizziness and found to have Na of 117. #Hyponatremia secondary to SIADH in setting of HCTZ use pt is evolemic serum Na responding well to fluid restriction and salt tabs can liberalize fluid restriction to 800cc and increase salt tabs to 1g TID Trend Na Q12h Goal rate of correction is ~8 in 24 hours no indication for 3% saline consider non-contrast CT to lung to r/o any pulmonary pathology that may be contributing to ADH release #Hypertensive urgency BP well controlled on Amlodpine can consider restarting bystolic Cased discussed with medical transcription and international organizer Parminder Anderson DO
--- NOTE | 2016-12-25 09:53 | EKG ---
Test Reason : Blood Pressure : / mmHG Vent. Rate : 068 BPM Atrial Rate : 068 BPM P-R Int : 172 ms QRS Dur : 094 ms QT Int : 438 ms P-R-T Axes : 058 024 039 degrees QTc Int : 465 ms NORMAL SINUS RHYTHM NORMAL ECG WHEN COMPARED WITH ECG OF 21-MAR-2005 10:01, NO SIGNIFICANT CHANGE WAS FOUND Confirmed by KALEY GEE MD ([id number]) on 12/25/2016 9:53:14 AM Referred By: Confirmed By:KALEY GEE MD
--- NOTE | 2016-12-25 10:13 | PN ---
Progress Note, Physician Chief Complaint: Events noted no complaints eating well no nausea, headaches, SOB - Current Medication List Current Medications: Active Medications Acetaminophen (Tylenol -) 650 mg PO Q6H PRN PRN Reason: FEVER OR PAIN Amlodipine Besylate (Norvasc -) 10 mg PO DAILY [facility] Last Admin: 12/24/16 09:20 Dose: 10 mg Heparin Sodium (Porcine) (Heparin -) 5,000 unit SQ TID [facility] Last Admin: 12/25/16 06:26 Dose: 5,000 unit Pantoprazole Sodium (Protonix -) 20 mg PO DAILY [facility] Last Admin: 12/24/16 09:20 Dose: 20 mg Sodium Chloride (Sodium Chloride Tablet -) 1 gm PO BID [facility] Last Admin: 12/24/16 23:03 Dose: 1 gm - Objective Vital Signs: Vital Signs Temperature 98.6 F 12/25/16 06:13 Pulse Rate 65 12/25/16 06:13 Respiratory Rate 18 12/25/16 06:13 Blood Pressure 144/73 12/25/16 06:13 O2 Sat by Pulse Oximetry (%) 96 12/24/16 20:37 Constitutional: Yes: No Distress Cardiovascular: Yes: Regular Rate and Rhythm Respiratory: Yes: CTA Bilaterally Gastrointestinal: Yes: Normal Bowel Sounds. No: Distention, Tenderness Edema: No Labs: CBC, BMP 12/25/16 03:00 12/25/16 03:00 Problem List - Problems (1) Hypertensive urgency Assessment/Plan: On Norvasc now BP under control ICU and Renal eval noted OK for transfer to floor Code(s): I16.0 - HYPERTENSIVE URGENCY (2) Hyponatremia Assessment/Plan: secondary to SIADH due to HCTZ Sodium improving on Sodium chloride tabs assymptomatic DVT prophylaxis-- OOB Heparin nm Code(s): E87.1 - HYPO-OSMOLALITY AND HYPONATREMIA
[2016-12-25] MEDS ORDERED: PT OWN MED DRAWER 7, Y5N ONE (11:09)
[2016-12-25] MEDS: amLODIPine BESYLATE 10 MG TABLET (FP) PO SCH (11:11)
[2016-12-25] MEDS: PANTOPRAZOLE 20 MG TABLET (FP) PO SCH (11:12)
[2016-12-25] MEDS: SODIUM CHLORIDE 1 GM TABLET PO SCH ×2 (11:12→22:53)
--- NOTE | 2016-12-25 11:37 | PN ---
Progress Note, Physician History of Present Illness: seen and examined today in [facility]. no new complaints. - Current Medication List Current Medications: Active Medications Acetaminophen (Tylenol -) 650 mg PO Q6H PRN PRN Reason: FEVER OR PAIN Amlodipine Besylate (Norvasc -) 10 mg PO DAILY [facility] Last Admin: 12/25/16 11:11 Dose: 10 mg Heparin Sodium (Porcine) (Heparin -) 5,000 unit SQ TID [facility] Last Admin: 12/25/16 06:26 Dose: 5,000 unit Pantoprazole Sodium (Protonix -) 20 mg PO DAILY [facility] Last Admin: 12/25/16 11:12 Dose: 20 mg Sodium Chloride (Sodium Chloride Tablet -) 1 gm PO BID [facility] Last Admin: 12/25/16 11:12 Dose: 1 gm - Objective Vital Signs: Vital Signs Temperature 98.6 F 12/25/16 06:13 Pulse Rate 65 12/25/16 06:13 Respiratory Rate 18 12/25/16 06:13 Blood Pressure 144/73 12/25/16 06:13 O2 Sat by Pulse Oximetry (%) 96 12/24/16 20:37 Constitutional: Yes: Well Nourished, No Distress, Calm Eyes: Yes: WNL, Conjunctiva Clear, EOM Intact, PERRL HENT: Yes: WNL, Atraumatic, Normocephalic Neck: Yes: WNL, Supple, Trachea Midline Cardiovascular: Yes: WNL, Regular Rate and Rhythm, S1, S2. No: Bradycardia, Tachycardia, Pulse Irregular, Bruit, JVD, Gallop, Murmur, Rub, S3, S4, Varicosities Respiratory: Yes: WNL, Regular, CTA Bilaterally. No: Rales, Rhonchi, Wheezes Gastrointestinal: Yes: WNL, Normal Bowel Sounds, Soft. No: Distention, Tenderness Musculoskeletal: Yes: WNL Extremities: Yes: WNL Edema: No Peripheral Pulses WNL: Yes Peripheral Pulses: Left Doralis Pedis: 2+, Right Dorsalis Pedis: 2+ Integumentary: Yes: WNL Neurological: Yes: WNL, Alert, Oriented, Cran Nerves II-XII Intact ...Motor Strength: WNL Psychiatric: Yes: WNL, Alert, Oriented Labs: CBC, BMP 12/25/16 03:00 12/25/16 03:00 - ....Imaging Chest X-ray: Report Reviewed, Image Reviewed EKG: Report Reviewed, Image Reviewed Other: Report Reviewed, Image Reviewed (tele-NSR, Apcs, no sig arrhythmias) Assessment/Plan 81 year old woman with a history of HTN, SVT s/p ablation in past, reported h/o TIA's, recently found to have uncontrolled HTN as outpatient, started HCTZ approx 1 month ago in addition to Bystolic which she had been on and then started on amlodipine 2.5mg daily last week, recent falls, admitted with symptomatic hyponatremia. 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
--- NOTE | 2016-12-25 11:43 | PN ---
Physical Exam: SUBJECTIVE: The patient is an 81F with a PMH of HTN who presented to the ED with elevated BP after having a recent BP medication change. The patient started HCTZ and was found to have a Na of 115, asymptomatic and BP in the 190' s. Patient sitting comfortably in bed. She stated that she began to feel lightheaded and felt like she was going to fall when she went to the bathroom. Denies a room-spinning sensation. OBJECTIVE: Vital Signs Period Temp Pulse Resp BP Sys/Cantor Pulse Ox Last 24 Hr 98.2 F-98.6 F 63-73 18-21 94-144/48-94 96 GENERAL: The patient is awake, alert, and fully oriented, in no acute distress. HEAD: Normal with no signs of trauma. EYES: PERRL, extraocular movements intact, sclera anicteric, conjunctiva clear. No ptosis. NECK: Trachea midline, full range of motion, supple. LUNGS: Breath sounds equal, clear to auscultation bilaterally, no wheezes, no crackles, no accessory muscle use. HEART: Regular rate and rhythm, S1, S2 without murmur, rub or gallop. ABDOMEN: Soft, nontender, nondistended, normoactive bowel sounds, no guarding, no rebound, no hepatosplenomegaly, no masses. EXTREMITIES: 2+ pulses, warm, well-perfused, no edema. NEUROLOGICAL: Cranial nerves II through XII grossly intact. Normal speech, gait not observed. PSYCH: Normal mood, normal affect. SKIN: Warm, dry, normal turgor, no rashes or lesions noted Laboratory Results - last 24 hr 12/23/16 12/24/16 12/24/16 21:45 12:30 20:25 WBC RBC Hgb Hct MCV MCH MCHC RDW Plt Count MPV Sodium 115 L* 120 L* Potassium Chloride Carbon Dioxide Anion Gap BUN Creatinine Creat Clearance w eGFR Random Glucose Calcium Total Bilirubin AST ALT Alkaline Phosphatase Total Protein Albumin Urine Color Ltyellow Urine Appearance Slcloudy Urine pH 8.0 Ur Specific [place] 1.009 Urine Protein Negative Urine Glucose (UA) Negative Urine Ketones Negative Urine Blood 1+ H Urine Nitrite Positive Urine Bilirubin Negative Urine Urobilinogen Negative Ur Leukocyte Esterase 1+ H Urine WBC (Auto) 28 Urine RBC (Auto) 24 Urine RBC No Result Required. Urine Bacteria Rare Urine Osmolality Ur Random Sodium 12/24/16 12/24/16 12/25/16 21:00 21:20 03:00 WBC 9.8 RBC 4.15 Hgb 13.2 Hct 37.9 MCV 91.5 MCH 31.8 MCHC 34.8 RDW 13.3 Plt Count 247 MPV 7.8 Sodium Potassium Chloride Carbon Dioxide Anion Gap BUN Creatinine Creat Clearance w eGFR Random Glucose Calcium Total Bilirubin AST ALT Alkaline Phosphatase Total Protein Albumin Urine Color Urine Appearance Urine pH Ur Specific [place] Urine Protein Urine Glucose (UA) Urine Ketones Urine Blood Urine Nitrite Urine Bilirubin Urine Urobilinogen Ur Leukocyte Esterase Urine WBC (Auto) Urine RBC (Auto) Urine RBC Urine Bacteria Urine Osmolality 369 Ur Random Sodium 28 12/25/16 03:00 WBC RBC Hgb Hct MCV MCH MCHC RDW Plt Count MPV Sodium 121 L* Potassium 4.1 Chloride 86 L Carbon Dioxide 24 Anion Gap 11 BUN 18 D Creatinine 0.6 Creat Clearance w eGFR > 60 Random Glucose 88 D Calcium 8.5 Total Bilirubin 0.6 AST 21 ALT 19 Alkaline Phosphatase 69 Total Protein 6.4 Albumin 3.1 L Urine Color Urine Appearance Urine pH Ur Specific [place] Urine Protein Urine Glucose (UA) Urine Ketones Urine Blood Urine Nitrite Urine Bilirubin Urine Urobilinogen Ur Leukocyte Esterase Urine WBC (Auto) Urine RBC (Auto) Urine RBC Urine Bacteria Urine Osmolality Ur Random Sodium Active Medications Generic Name Dose Route Start Last Admin Trade Name Nishq PRN Reason Stop Dose Admin Acetaminophen 650 mg 12/24/16 02:44 Tylenol - PO Q6H PRN FEVER OR PAIN Amlodipine Besylate 10 mg 12/24/16 10:00 12/25/16 11:11 Norvasc - PO 10 mg DAILY [facility] Administration Heparin Sodium (Porcine) 5,000 unit 12/24/16 06:00 12/25/16 06:26 Heparin - SQ 5,000 unit TID [facility] Administration Pantoprazole Sodium 20 mg 12/24/16 10:00 12/25/16 11:12 Protonix - PO 20 mg DAILY [facility] Administration Sodium Chloride 1 gm 12/24/16 08:15 12/25/16 11:12 Sodium Chloride Tablet - PO 1 gm BID [facility] Administration ASSESSMENT/PLAN: Neuro: - A&O x 3 - Back to baseline for patient CV: - HTN urgency: resolved - Most recent BP 136/66 - Continue BP meds with close BP check - Orthostats 2/2 to complaints of lighteadedness - Orthostats significant for supine BP 136/60 and standing of 116/57 Pulm: - None Renal: - Increase salt intake to 3g - Increase water restriction to 800mL - Both per Dr. Anderson's recommendation : - Urine showing lactose fermenting bacilli - Will cover with Keflex 500mg PO BID GI: - None ID: - None Hem/Onc: - None Endocrine: - SIADH, see renal - Na 121 from 115, continue recs from nephrology PPX: - Heparin FEN (Fluids, electrolytes, nutrition): - Regular diet - Salt tablets Dispo: - Transfer to med/surg - Continue care as noted
--- NOTE | 2016-12-25 11:54 | PN ---
Teaching Attending Note Name of Resident: Gene Duke ATTENDING PHYSICIAN STATEMENT I saw and evaluated the patient. I reviewed the resident's note and discussed the case with the resident. I agree with the resident's findings and plan as documented. SUBJECTIVE: Pt seen and examined in the ICU. Lightheaded when she went to the bathroom this AM otherwise no other complaints. OBJECTIVE: Last Vital Signs Temp Pulse Resp BP Pulse Ox 98.6 F 65 18 144/73 96 12/25/16 06:13 12/25/16 06:13 12/25/16 06:13 12/25/16 06:13 12/24/16 20:37 Intake & Output 12/22/16 12/23/16 12/24/16 12/25/16 23:59 23:59 23:59 23:59 Intake Total 450 50 Output Total 25 Balance 425 50 Weight 150 lb 144 lb 11.2 oz 145 lb Gen: NAD at rest Heart: RRR Lung: decreased breath sounds at the bases Abd: soft, nontender Ext: no edema CBC, BMP 12/25/16 03:00 12/25/16 03:00 Active Medications Acetaminophen (Tylenol -) 650 mg PO Q6H PRN PRN Reason: FEVER OR PAIN Amlodipine Besylate (Norvasc -) 10 mg PO DAILY [facility] Last Admin: 12/25/16 11:11 Dose: 10 mg Heparin Sodium (Porcine) (Heparin -) 5,000 unit SQ TID [facility] Last Admin: 12/25/16 06:26 Dose: 5,000 unit Pantoprazole Sodium (Protonix -) 20 mg PO DAILY [facility] Last Admin: 12/25/16 11:12 Dose: 20 mg Sodium Chloride (Sodium Chloride Tablet -) 1 gm PO BID [facility] Last Admin: 12/25/16 11:12 Dose: 1 gm ASSESSMENT AND PLAN: Severe Hyponatremia HTN h/o SVT s/p ablation h/o TIA - fluid restriction - monitor sodium level - PO as tolerated - BP control, avoid diuretics - can monitor on floor if no hypertonic saline planned
[2016-12-25] MEDS ORDERED: SODIUM CHLORIDE 1 GM TABLET PO SCH (14:13)
[2016-12-25] MEDS ORDERED: ACETAMINOPHEN 325 MG TABLET (FP) PO PRN (16:20)
[2016-12-25] MEDS: CEFTRIAXONE 1 G/50 ML PREMIX 50 ML IVPB SCH (18:58)
[2016-12-25] MEDS ORDERED: CYCLOBENZAPRINE HCL 10 MG TABLET (FP) PO ONE (21:21)
[2016-12-26] MEDS: SODIUM CHLORIDE 1 GM TABLET PO SCH ×3 (06:20→21:51)
[2016-12-26] MEDS: HEPARIN NA (PORCINE) 5,000 UNITS/ML 1ML VIAL SQ SCH ×3 (06:20→21:50)
[2016-12-26 08:14] LABS: ANION GAP 9 (8-16); CALCIUM 8.6 mg/dL (8.5-10.1); CO2 28 mmol/L (21-32); CREATININE 0.6 mg/dL (0.55-1.02); GLUCOSE,RANDOM 73 mg/dL (74-106)
--- NOTE | 2016-12-26 09:34 | PN ---
Progress Note, Physician Chief Complaint: no chest pain or SOB - Current Medication List Current Medications: Active Medications Acetaminophen (Tylenol -) 650 mg PO Q6H PRN PRN Reason: FEVER OR PAIN Amlodipine Besylate (Norvasc -) 10 mg PO DAILY [facility] Heparin Sodium (Porcine) (Heparin -) 5,000 unit SQ TID [facility] Last Admin: 12/26/16 06:20 Dose: Not Given CEFTRIAXONE 1 G/50 ML PREMIX (Ceftriaxone 1 Gm-D5w Bag) 50 mls @ 100 mls/hr IVPB DAILY [facility] Last Admin: 12/25/16 18:58 Dose: 100 mls/hr Pantoprazole Sodium (Protonix -) 20 mg PO DAILY [facility] Sodium Chloride (Sodium Chloride Tablet -) 1 gm PO TID [facility] Last Admin: 12/26/16 06:20 Dose: 1 gm - Objective Vital Signs: Vital Signs Temperature 97.5 F L 12/26/16 05:24 Pulse Rate 71 12/26/16 05:24 Respiratory Rate 20 12/26/16 05:24 Blood Pressure 115/50 12/26/16 05:24 O2 Sat by Pulse Oximetry (%) 98 12/25/16 21:00 Constitutional: Yes: Calm Cardiovascular: Yes: Regular Rate and Rhythm Respiratory: Yes: CTA Bilaterally Gastrointestinal: Yes: Soft Edema: No Neurological: Yes: Alert Labs: CBC, BMP 12/25/16 03:00 12/26/16 06:00 Laboratory Tests 12/25/16 12/26/16 03:00 06:00 WBC 9.8 Hct 37.9 Plt Count 247 Sodium 131 L Potassium 3.9 BUN 20 H Creatinine 0.6 Calcium 8.6 Assessment/Plan Assessment/Plan 81 year old woman with a history of HTN, SVT s/p ablation in past, reported h/o TIA's, recently found to have uncontrolled HTN as outpatient, started HCTZ approx 1 month ago in addition to Bystolic which she had been on and then started on amlodipine 2.5mg daily last week, recent falls, admitted with symptomatic hyponatremia. Hyponatremia-Na improving appropriately -HCTZ was stopped -pt is euvolemic -plan to avoid diuretics going forward -consideration being made for alternative sources of SIADH HTN-adequately controlled currently -Cont Norvasc 10mg daily -if needed for additional HTN control can restart home Bystolic H/o SVT s/p ablation -no sig arrhythmias on tele, only frequent apcs -plan for outpatient f/up
[2016-12-26] MEDS: CEFTRIAXONE 1 G/50 ML PREMIX 50 ML IVPB SCH (09:36)
[2016-12-26] MEDS: PANTOPRAZOLE 20 MG TABLET (FP) PO SCH (09:37)
[2016-12-26] MEDS: amLODIPine BESYLATE 10 MG TABLET (FP) PO SCH (09:37)
--- NOTE | 2016-12-26 09:58 | PN ---
Progress Note (short form) - Note Progress Note: Feels overall better today. Ambulated to bathroom without SOB or dizziness. No acute events overnight. Intake & Output 12/23/16 12/24/16 12/25/16 12/26/16 23:59 23:59 23:59 23:59 Intake Total 450 650 100 Output Total 25 Balance 425 650 100 Weight 150 lb 144 lb 11.2 oz 145 lb Last Vital Signs Temp Pulse Resp BP Pulse Ox 97.5 F L 71 20 115/50 98 12/26/16 05:24 12/26/16 05:24 12/26/16 05:24 12/26/16 05:24 12/25/16 21:00 Active Medications Acetaminophen (Tylenol -) 650 mg PO Q6H PRN PRN Reason: FEVER OR PAIN Amlodipine Besylate (Norvasc -) 10 mg PO DAILY [facility] Last Admin: 12/26/16 09:37 Dose: 10 mg Heparin Sodium (Porcine) (Heparin -) 5,000 unit SQ TID [facility] Last Admin: 12/26/16 06:20 Dose: Not Given CEFTRIAXONE 1 G/50 ML PREMIX (Ceftriaxone 1 Gm-D5w Bag) 50 mls @ 100 mls/hr IVPB DAILY [facility] Last Admin: 12/26/16 09:36 Dose: 100 mls/hr Pantoprazole Sodium (Protonix -) 20 mg PO DAILY [facility] Last Admin: 12/26/16 09:37 Dose: 20 mg Sodium Chloride (Sodium Chloride Tablet -) 1 gm PO TID [facility] Last Admin: 12/26/16 06:20 Dose: 1 gm Gen: NAD at rest Heart: RRR Lung: decreased breath sounds at the bases Abd: soft, nontender Ext: no edema Laboratory Results - last 24 hr 12/24/16 12/26/16 06:00 06:00 Sodium 131 L Potassium 3.9 Chloride 94 L Carbon Dioxide 28 Anion Gap 9 BUN 20 H Creatinine 0.6 Random Glucose 73 L Calcium 8.6 Cortisol AM Sample 19.3 ASSESSMENT AND PLAN: Severe Hyponatremia HTN h/o SVT s/p ablation h/o TIA - CT Chest ordered - fluid restriction - monitor sodium level - PO as tolerated - BP control, avoid diuretics Dr Melton
--- NOTE | 2016-12-26 10:24 | PN ---
Progress Note, Physician Chief Complaint: no complaints no headaches - Current Medication List Current Medications: Active Medications Acetaminophen (Tylenol -) 650 mg PO Q6H PRN PRN Reason: FEVER OR PAIN Amlodipine Besylate (Norvasc -) 10 mg PO DAILY [facility] Last Admin: 12/26/16 09:37 Dose: 10 mg Heparin Sodium (Porcine) (Heparin -) 5,000 unit SQ TID [facility] Last Admin: 12/26/16 06:20 Dose: Not Given CEFTRIAXONE 1 G/50 ML PREMIX (Ceftriaxone 1 Gm-D5w Bag) 50 mls @ 100 mls/hr IVPB DAILY [facility] Last Admin: 12/26/16 09:36 Dose: 100 mls/hr Pantoprazole Sodium (Protonix -) 20 mg PO DAILY [facility] Last Admin: 12/26/16 09:37 Dose: 20 mg Sodium Chloride (Sodium Chloride Tablet -) 1 gm PO TID [facility] Last Admin: 12/26/16 06:20 Dose: 1 gm - Objective Vital Signs: Vital Signs Temperature 97.5 F L 12/26/16 05:24 Pulse Rate 71 12/26/16 05:24 Respiratory Rate 20 12/26/16 05:24 Blood Pressure 115/50 12/26/16 05:24 O2 Sat by Pulse Oximetry (%) 98 12/25/16 21:00 Constitutional: Yes: No Distress Cardiovascular: Yes: Regular Rate and Rhythm Respiratory: Yes: CTA Bilaterally Gastrointestinal: Yes: Normal Bowel Sounds, Soft, Abdomen, Obese. 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
--- NOTE | 2016-12-26 14:14 | PN ---
Progress Note (short form) - Note Progress Note: Renal Follow up for Hyponatremia Pt seen and examined in the ICU awake and alert no confusion, lethargy, weakness, N/V Vital Signs Temperature 97.5 F L 12/26/16 13:25 Pulse Rate 84 12/26/16 13:25 Respiratory Rate 20 12/26/16 13:25 Blood Pressure 124/60 12/26/16 13:25 O2 Sat by Pulse Oximetry (%) 98 12/25/16 21:00 Intake & Output 12/23/16 12/24/16 12/25/16 12/26/16 23:59 23:59 23:59 23:59 Intake Total 450 650 400 Output Total 25 Balance 425 650 400 Weight 68.039 kg 65.635 kg 65.771 kg NAD, awake and alert RRR, NO M/R CTA, no rales, wheeze soft NT/ND No LE edema CBC, BMP 12/25/16 03:00 12/26/16 06:00 Current Medications Acetaminophen (Tylenol -) 650 mg PO Q6H PRN PRN Reason: FEVER OR PAIN Amlodipine Besylate (Norvasc -) 10 mg PO DAILY [facility] Last Admin: 12/26/16 09:37 Dose: 10 mg Heparin Sodium (Porcine) (Heparin -) 5,000 unit SQ TID [facility] Last Admin: 12/26/16 13:14 Dose: Not Given CEFTRIAXONE 1 G/50 ML PREMIX (Ceftriaxone 1 Gm-D5w Bag) 50 mls @ 100 mls/hr IVPB DAILY [facility] Last Admin: 12/26/16 09:36 Dose: 100 mls/hr Pantoprazole Sodium (Protonix -) 20 mg PO DAILY [facility] Last Admin: 12/26/16 09:37 Dose: 20 mg Sodium Chloride (Sodium Chloride Tablet -) 1 gm PO TID [facility] Last Admin: 12/26/16 13:13 Dose: 1 gm 81 year old woman with PMhx of Hypertension who presented with complaints of high BP at home and dizziness and found to have Na of 117. #Hyponatremia secondary to SIADH in setting of HCTZ use serum Na is improving decrease salt tabs to BID check CT of the chest #Hypertensive urgency BP well controlled on Amlodpine [facility]
[2016-12-27] MEDS: HEPARIN NA (PORCINE) 5,000 UNITS/ML 1ML VIAL SQ SCH ×2 (05:59→14:28)
[2016-12-27 07:50] LABS: ANION GAP 4 (8-16); CO2 29 mmol/L (21-32); GLUCOSE,RANDOM 78 mg/dL (74-106)
[2016-12-27 07:51] LABS: CREATININE 0.6 mg/dL (0.55-1.02)
--- NOTE | 2016-12-27 09:27 | DS ---
Physical Examination Vital Signs: Vital Signs Temperature 97.9 F 12/27/16 05:55 Pulse Rate 70 12/27/16 05:55 Respiratory Rate 20 12/27/16 05:55 Blood Pressure 121/53 12/27/16 05:55 O2 Sat by Pulse Oximetry (%) 99 12/26/16 21:00 Constitutional: Yes: No Distress, Calm Cardiovascular: Yes: Regular Rate and Rhythm Respiratory: Yes: CTA Bilaterally Gastrointestinal: Yes: Normal Bowel Sounds, Soft. No: Distention, Tenderness Edema: No Neurological: Yes: WNL, Alert, Oriented Labs: CBC, BMP 12/25/16 03:00 12/27/16 06:00 Discharge Summary Reason For Visit: HYPONATREMIA, UTI , HTN Current Active Problems Hypertensive urgency (Acute) Hyponatremia (Acute) Hospital Course: Admitted for HTN urgency and hyponatremia due to SIADH due to thiazide diuretics CT chest -no nodules or suspicious mass Was initially admitted to ICU-- no AMS Hyponatremia better seen by Cardiology, Renal and Pulmonary BP controlled on Amlodipine alone Also has UTI-- on iv antibiotics-- change to PO upon discharge to home Pt is better stable for dc home Condition: Improved - Instructions Referrals: Parminder Anderson MD [Staff Physician] - 1 Week Sarah Chanel MD [Staff Physician] - 2 Weeks Braeden Hargrove MD [Staff Physician] - 2 Weeks Disposition: HOME - Home Medications Comprehensive Discharge Medication List: Ambulatory Orders Amlodipine Besylate [Norvasc -] 10 mg PO DAILY #30 tablet 12/27/16 Cefuroxime Axetil [Ceftin -] 500 mg PO Q12H #10 tablet 12/27/16 Sodium Chloride Tablet - 1 gm PO BID #30 tablet 12/27/16
[2016-12-27] MEDS ORDERED: PT OWN MED DRAWER 7, Y5N ONE (09:30)
[2016-12-27] MEDS: PANTOPRAZOLE 20 MG TABLET (FP) PO SCH (09:35)
[2016-12-27] MEDS: amLODIPine BESYLATE 10 MG TABLET (FP) PO SCH (09:36)
[2016-12-27] MEDS: SODIUM CHLORIDE 1 GM TABLET PO SCH (09:36)
[2016-12-27] MEDS: CEFTRIAXONE 1 G/50 ML PREMIX 50 ML IVPB SCH (09:36)
--- NOTE | 2016-12-27 09:40 | PN ---
Progress Note, Physician - Current Medication List Current Medications: Active Medications Acetaminophen (Tylenol -) 650 mg PO Q6H PRN PRN Reason: FEVER OR PAIN Amlodipine Besylate (Norvasc -) 10 mg PO DAILY [facility] Last Admin: 12/27/16 09:36 Dose: 10 mg Heparin Sodium (Porcine) (Heparin -) 5,000 unit SQ TID [facility] Last Admin: 12/27/16 05:59 Dose: Not Given CEFTRIAXONE 1 G/50 ML PREMIX (Ceftriaxone 1 Gm-D5w Bag) 50 mls @ 100 mls/hr IVPB DAILY [facility] Last Admin: 12/27/16 09:36 Dose: 100 mls/hr Pantoprazole Sodium (Protonix -) 20 mg PO DAILY [facility] Last Admin: 12/27/16 09:35 Dose: 20 mg Sodium Chloride (Sodium Chloride Tablet -) 1 gm PO BID [facility] Last Admin: 12/27/16 09:36 Dose: 1 gm - Objective Vital Signs: Vital Signs Temperature 97.9 F 12/27/16 05:55 Pulse Rate 70 12/27/16 05:55 Respiratory Rate 20 12/27/16 05:55 Blood Pressure 121/53 12/27/16 05:55 O2 Sat by Pulse Oximetry (%) 99 12/26/16 21:00 Labs: CBC, BMP 12/25/16 03:00 12/27/16 06:00 Laboratory Tests 12/27/16 06:00 Sodium 134 L Potassium 4.3 Creatinine 0.6
--- NOTE | 2016-12-27 12:21 | PN ---
Progress Note (short form) - Note Progress Note: Renal Follow up for Hyponatremia Pt seen and examined at the [facility] awake and alert no acute complaints no sob, chest pain, N/V/D Vital Signs Temperature 97.7 F 12/27/16 10:00 Pulse Rate 78 12/27/16 10:00 Respiratory Rate 20 12/27/16 10:00 Blood Pressure 129/64 12/27/16 10:00 O2 Sat by Pulse Oximetry (%) 99 12/26/16 21:00 Intake & Output 12/24/16 12/25/16 12/26/16 12/27/16 23:59 23:59 23:59 23:59 Intake Total 450 650 550 50 Output Total 25 Balance 425 650 550 50 Weight 65.635 kg 65.771 kg NAD, awake and alert RRR, NO M/R CTA, no rales, wheeze soft NT/ND No LE edema CBC, BMP 12/25/16 03:00 12/27/16 06:00 Current Medications Acetaminophen (Tylenol -) 650 mg PO Q6H PRN PRN Reason: FEVER OR PAIN Amlodipine Besylate (Norvasc -) 10 mg PO DAILY [facility] Last Admin: 12/27/16 09:36 Dose: 10 mg Heparin Sodium (Porcine) (Heparin -) 5,000 unit SQ TID [facility] Last Admin: 12/27/16 05:59 Dose: Not Given CEFTRIAXONE 1 G/50 ML PREMIX (Ceftriaxone 1 Gm-D5w Bag) 50 mls @ 100 mls/hr IVPB DAILY [facility] Last Admin: 12/27/16 09:36 Dose: 100 mls/hr Pantoprazole Sodium (Protonix -) 20 mg PO DAILY [facility] Last Admin: 12/27/16 09:35 Dose: 20 mg Sodium Chloride (Sodium Chloride Tablet -) 1 gm PO BID [facility] Last Admin: 12/27/16 09:36 Dose: 1 gm 81 year old woman with PMhx of Hypertension who presented with complaints of high BP at home and dizziness and found to have Na of 117. #Hyponatremia secondary to SIADH in setting of HCTZ use serum Na is improved and stable CT lung showed no acute pathology continue salt tabs BID, fluid restriction of 1L to follow up in our office on Sunday and will do repeat labs at that time #Hypertensive urgency Can resume hoem BP meds excluding HCTZ on discharge Parminder Anderson DO
[2016-12-27 18:53] VITALS: BP 146/64; PULSE 81; TEMP 97.6
== END 2016-12-27 19:21 | disposition home or self-care (01) | DRG 644 ==
LOC: SUPCPDRO 19:12 → JER 19:12 → JERBED 12-24 00:49 → JICU 12-24 01:27 → J7W 12-25 14:50
PROVIDERS: ADMIT Internal Medicine; ATTEND Internal Medicine
DX: E22.2 Syndrome of inappropriate secretion of antidiuretic hormone (principal); N39.0 Urinary tract infection, site not specified; I16.0 Hypertensive urgency; M54.9 Dorsalgia, unspecified; Z86.73 Personal history of transient ischemic attack (TIA), and cerebral infarction without residual deficits
CPT/HCPCS: 36415; 71010-TC; 71250-TC; 80048; 80053; 80061; 81003; 81015; 82533; 82550; 82553; 83721; 83930; 83935; 84295; 84300; 84443; 84484; 84550; 85025; 85027; 87086; 87186; 93005; 93010; 97116-GP; 97161-GP; 99284-25; J1644

== ENCOUNTER 2017-04-28 09:50 | Emergency (ER) | payer OTHER, MEDICARE ==
[2017-04-28 10:03] VITALS: BMI 19.1
--- NOTE | 2017-04-28 10:22 | PDOC ---
History of Present Illness - General Chief Complaint: Respiratory Stated Complaint: FEVER Time Seen by Provider: 04/28/17 10:21 - History of Present Illness Initial Comments: 04/28/17 10:57 The patient is an 81 year old female with a history of HTN, HLD who presents for evaluation of fever. The patient reports that she was recently evaluated in the ED 1 week ago and diagnosed with a UTI. She was prescribed keflex and has been taking it as prescribed with her last dose earlier this morning. She noted that she felt flushed and took her temperature at home noting it to be 100.6 prompting her presentation to the ED for evaluation. Triage notes report respiratory complaints, but the patient does not report any respiratory complaints on exam. She otherwise denies chills, SOB, chest pain, cough, nausea , vomiting, abdominal pain, or changes with urination or bowel movements. Past History - Past Medical History Allergies/Adverse Reactions: Allergies Allergy/AdvReac Type Severity Reaction Status Date / Time codeine AdvReac Verified 04/28/17 10:03 Home Medications: Ambulatory Orders Amlodipine Besylate [Norvasc -] 5 mg PO DAILY 04/20/17 Nebivolol [Bystolic -] 5 mg PO DAILY 04/20/17 Anemia: No Asthma: No Cancer: No Cardiac Disorders: No CVA: No COPD: No CHF: No Dementia: No Diabetes: No GI Disorders: No Disorders: No HTN: Yes Hypercholesterolemia: No Liver Disease: No Seizures: No Thyroid Disease: No - Surgical History Abdominal Surgery: No Appendectomy: Yes Cardiac Surgery: No Cholecystectomy: No Lung Surgery: No Neurologic Surgery: No Orthopedic Surgery: No - Immunization History Immunization Up to Date: Yes - Suicide/Smoking/Psychosocial Hx Smoking History: Never smoked Have you smoked in the past 12 months: No Hx Alcohol Use: No Drug/Substance Use Hx: No Substance Use Type: None Review of Systems - Review of Systems Comments:: 04/28/17 11:03 Constitutional: Fever. No chills, fatigue, malaise HEENT: No Rhinorrhea, nasal congestion, visual changes Cardiovascular: No chest pain, syncope, palpitations, lightheadedness Respiratory: No Cough, SOB, Hemoptysis, Gastrointestinal: No Abdominal pain, Nausea, Vomiting, Constipation, Diarrhea, Melena Genitourinary: No Dysuria, Frequency, Urgency, Hesitancy, Hematuria, Flank pain Musculoskeletal: No Myalgia, arthralgia Skin: No rashes, itching, bruising, pallor Neurologic: No Headache, Dizziness, Numbness, Weakness, or Tingling Psychiatric: No Hallucinations. No SI or HI *Physical Exam - Vital Signs Last Vital Signs Temp Pulse Resp BP Pulse Ox 99.4 F 81 18 133/98 98 04/28/17 10:00 04/28/17 10:00 04/28/17 10:00 04/28/17 10:00 04/28/17 10:00 - Physical Exam Comments: 04/28/17 11:03 General Appearance: Nourished. No Apparent Distress HEENT: EOMI, LOUISA. No Pharyngeal Erythema, Tonsillar Exudate, Tonsillar Erythema Neck: No Cervical Lymphadenopathy Respiratory/Chest: Lungs Clear, Normal Breath Sounds. No Crackles, Rales, Rhonchi, Wheezing Cardiovascular: Regular Rhythm, Regular Rate. No Murmur, Gallops, Rubs Gastrointestinal/Abdominal: Normal Bowel Sounds, Soft. No Guarding, Rebound, Tenderness Musculoskeletal: No CVA Tenderness Extremity: Normal Capillary Refill Integumentary: Normal Color, Dry, Warm Neurologic: Fully Oriented, Alert, Normal Mood/Affect, Normal Response, ED Treatment Course - LABORATORY CBC & Chemistry Diagram: 04/28/17 11:00 04/28/17 11:00 Medical Decision Making - Medical Decision Making 04/28/17 11:03 The patient is an 81 year old female with a history of HTN, HLD who presents for evaluation of fever. Differential includes but is not limited to: UTI, Other Infectious, Metabolic derangement. Given the patient's history of UTI, it is likely her current complaints may be related to her current UTI. We will obtain a cbc, cmp, ua, urine culture to evaluate further for possible etiologies. We will continue to monitor and reassess in the meantime. 04/28/17 12:22 CBC demonstrates a wbc elevation to 12.1. CMP demonstrates some mild elevation in liver enzymes. UA is unremarkable. The patient remains asymptomatic on exam. We are comfortable discharging the patient home at this time with primary care provider follow up. We discussed the results, plan, and return precautions with the patient who voiced understanding and is agreeable with the plan. *DC/Admit/Observation/Transfer Diagnosis at time of Disposition: Fever Qualifiers: Fever type: unspecified Qualified Code(s): R50.9 - Fever, unspecified - Discharge Dispostion Disposition: HOME Condition at time of disposition: Good Admit: No - Referrals Referrals: Sarah Chanel MD [Primary Care Provider] - - Patient Instructions Printed Discharge Instructions: DI for Fever (Symptom) -- Adult Additional Instructions: Please return to the ER if you experience concerning or worsening symptoms including difficulty breathing, abdominal pain, or vomiting. Your lab results were mostly normal here in the ER, but did show some very mild elevation in your liver enzymes. It is important to call your primary care provider within 2-3 days to discuss these results and your ER visit as well as further management of your symptoms. - Post Discharge Activity
--- NOTE | 2017-04-28 10:38 | PDOC ---
Attending Attestation - Resident Resident Name: Trav Shah - ED Attending Attestation I have performed the following: I have examined & evaluated the patient, The case was reviewed & discussed with the resident, I agree w/resident's findings & plan, Exceptions are as noted - HPI HPI: 04/28/17 10:45 81y F hx htn, hl, presensts with complaint of fever, was recently dx with a UTI and started on keflex. Pt completed her course of abx, and felt flush and took her bp which was normal and the ntook her temp and was noted at 100.6. Pt dnies any cp, sob, cough, leg swelling, dysuria, back pain, abd pain, congestion. pt states she feels well currently and is asypmtmotic. GENERAL: The patient is awake, alert, and fully oriented, Nontoxic - in no acute distress. HEAD: Normocephalic, atraumatic. EYES: extraocular movements intact, sclera anicteric, conjunctiva clear. ENT: Normal voice, Moist mucous membranes. NECK: Normal range of motion, supple LUNGS: Breath sounds equal, clear to auscultation bilaterally. No wheezes, no rhonchi, no rales. HEART: Regular rate and rhythm, normal S1 and S2 without murmur, rub or gallop. ABDOMEN: Soft, nontender, normoactive bowel sounds. No guarding, no rebound. . No CVA tenderness EXTREMITIES: Normal range of motion, no edema. NEUROLOGICAL: No facial assymetry, Normal speech, PSYCH: Normal mood, normal affect. SKIN: Warm, Dry, normal turgor, Differential for the patient's symptoms includes treatment failure of UTI. pt joe has normal vitals will ck labs, ua will reassess - Physicial Exam PE: 04/28/17 12:37 see above - Medical Decision Making 04/28/17 12:36 pts labs reviewed noted for slight bump in her LFTs - although the patient does not had have any abdominal pain. The cause of her LFT elevation is unclear will have the patient follow-up with Dr. Chanel for repeat LFTs and further management.
[2017-04-28 11:30] LABS: BASO % 0.4 % (0-2.0); EOS % 2.6 % (0-4.5); HEMATOCRIT 35.7 % (32.4-45.2); HEMOGLOBIN 12.2 GM/dL (10.7-15.3); LYMPH % 5.8 % (8-40); MCH 32.1 pg (25.7-33.7); MCHC 34.2 g/dl (32.0-36.0); MEAN PLT VOLUME 8.6 fl (7.5-11.1); MONO % 8.7 % (3.8-10.2); NEUT % 82.5 % (42.8-82.8); PLATELET COUNT 184 K/MM3 (134-434); RBC 3.79 M/mm3 (3.60-5.2); RDW 13.5 % (11.6-15.6); WHITE BLOOD COUNT 12.1 K/mm3 (4.0-10.0)
[2017-04-28 11:52] LABS: ALBUMIN 3.3 g/dl (3.4-5.0); ALK PHOS 146 U/L (45-117); ANION GAP 11 (8-16); BILIRUBIN,TOTAL 0.7 mg/dL (0.2-1.0); BLOOD UREA NITROGEN 15 mg/dL (7-18); CALCIUM 8.4 mg/dL (8.5-10.1); CHLORIDE 91 mmol/L (98-107); CO2 27 mmol/L (21-32); CREATININE 0.8 mg/dL (0.55-1.02); GLUCOSE,RANDOM 93 mg/dL (74-106); SGOT/AST 91 U/L (15-37); SGPT/ALT 151 U/L (12-78); SODIUM 129 mmol/L (136-145); TOT PROT 7.4 g/dl (6.4-8.2)
[2017-04-28 12:04] LABS: URINE APPEARANCE CLEAR; URINE BILIRUBIN NEGATIVE (<2.0 mg/dL); URINE BLOOD 2+ (NEGATIVE); URINE COLOR LTYELLOW; URINE GLUCOSE (UA) NEGATIVE (NEGATIVE); URINE KETONE NEGATIVE (NEGATIVE); URINE LEUK ESTERASE NEGATIVE (NEGATIVE); URINE NITRITE NEGATIVE (NEGATIVE); URINE PROTEIN NEGATIVE (NEGATIVE); URINE UROBILINOGEN NEGATIVE mg/dL (0.2-1.0)
[2017-04-28 12:18] LABS: EPI CELLS RARE /HPF (FEW)
[2017-04-28 12:55] VITALS: BP 126/59; PULSE 73; TEMP 98.1
== END 2017-04-28 13:03 | disposition home or self-care (01) ==
LOC: JER 09:50
DX: D72.828 Other elevated white blood cell count (principal); Z87.440 Personal history of urinary (tract) infections; I10 Essential (primary) hypertension; E78.00 Pure hypercholesterolemia, unspecified
CPT/HCPCS: 36415; 80053; 81003; 81015; 85025; 87086; 99282-25

== ENCOUNTER 2017-06-23 18:01 | Emergency (ER) | payer OTHER, MEDICARE ==
[2017-06-23 18:22] VITALS: BMI 23.3
--- NOTE | 2017-06-23 19:23 | PDOC ---
History of Present Illness - General Chief Complaint: Lightheaded Stated Complaint: FATIGUE Time Seen by Provider: 06/23/17 19:23 - History of Present Illness Initial Comments: 06/23/17 19:24 Ms. Juarez is an 81 yo female w/ pmh of HTN and HLD who presents for evaluation of a 1 day history of dizziness. She reports this started earlier today when she was driving and has continued until now. She describes it as unrelated to movement however reports it has improved since she layed down in bed. She has had coinciding nausea but has been unable to vomit. Ms. Juarez further endorses recent problems with her sodium levels after changes in HTN medication. The patient denies chest pain, shortness of breath, and headache. Denies fever, chills, vomit, diarrhea and constipation. Denies dysuria, frequency, urgency and hematuria. Allergies: Codeine Past History - Past Medical History Allergies/Adverse Reactions: Allergies Allergy/AdvReac Type Severity Reaction Status Date / Time codeine AdvReac Verified 06/23/17 18:22 Home Medications: Ambulatory Orders Amlodipine Besylate [Norvasc -] 5 mg PO DAILY 04/20/17 Nebivolol [Bystolic -] 5 mg PO DAILY 04/20/17 Ondansetron HCl [Zofran] 4 mg PO TID PRN #9 tablet 06/23/17 Anemia: No Asthma: No Cancer: No Cardiac Disorders: No CVA: No COPD: No CHF: No Dementia: No Diabetes: No GI Disorders: No Disorders: No HTN: Yes Hypercholesterolemia: No Liver Disease: No Seizures: No Thyroid Disease: No - Surgical History Abdominal Surgery: No Appendectomy: Yes Cardiac Surgery: No Cholecystectomy: No Lung Surgery: No Neurologic Surgery: No Orthopedic Surgery: No - Immunization History Immunization Up to Date: Yes - Suicide/Smoking/Psychosocial Hx Smoking History: Never smoked Have you smoked in the past 12 months: No Hx Alcohol Use: No Drug/Substance Use Hx: No Substance Use Type: None Review of Systems - Review of Systems Comments:: 06/23/17 19:50 GENERAL/CONSTITUTIONAL: No fever or chills. No weakness. HEAD, EYES, EARS, NOSE AND THROAT: No change in vision. No ear pain or discharge. No sore throat. CARDIOVASCULAR: No chest pain or shortness of breath RESPIRATORY: No cough, wheezing, or hemoptysis. GASTROINTESTINAL: +Nausea as described with dizziness. No vomiting, diarrhea or constipation. GENITOURINARY: No dysuria, frequency, or change in urination. MUSCULOSKELETAL: No joint or muscle swelling or pain. No neck or back pain. SKIN: No rash NEUROLOGIC: No headache, vertigo, loss of consciousness, or change in strength/ sensation. ENDOCRINE: No increased thirst. No abnormal weight change HEMATOLOGIC/LYMPHATIC: No anemia, easy bleeding, or history of blood clots. ALLERGIC/IMMUNOLOGIC: No hives or skin allergy. *Physical Exam - Vital Signs Last Vital Signs Temp Pulse Resp BP Pulse Ox 97.4 F L 68 18 175/70 99 06/23/17 18:20 06/23/17 18:20 06/23/17 18:20 06/23/17 18:20 06/23/17 18:20 - Physical Exam Comments: 06/23/17 19:50 GENERAL: Awake, alert, and fully oriented, in no acute distress HEAD: No signs of trauma, normocephalic, atraumatic EYES: PERRLA, EOMI, sclera anicteric, conjunctiva clear ENT: +Significant cerumen noted bilaterally. Auricles normal inspection, hearing grossly normal, nares patent, oropharynx clear without exudates. Moist mucosa NECK: Normal ROM, supple, no lymphadenopathy, JVD, or masses LUNGS: No distress, speaks full sentences, clear to auscultation bilaterally HEART: Regular rate and rhythm, normal S1 and S2, no murmurs, rubs or gallops, peripheral pulses normal and equal bilaterally. ABDOMEN: Soft, nontender, normoactive bowel sounds. No guarding, no rebound. No masses EXTREMITIES: Normal inspection, Normal range of motion, no edema. No clubbing or cyanosis. NEUROLOGICAL: Cranial nerves II through XII grossly intact. Normal speech, normal gait, no focal sensorimotor deficits SKIN: Warm, Dry, normal turgor, no rashes or lesions noted. ED Treatment Course - LABORATORY CBC & Chemistry Diagram: 06/23/17 20:15 06/23/17 20:15 Medical Decision Making - Medical Decision Making 06/23/17 20:51 Ms. Juarez is an 81 yo female w/ pmh as described who presents for evaluation of dizziness x1 day. Recent Head CT negative; as patient not reporting headache at this time decision made to forego repeat as no concern for acute process at this time. CBC/CMP/UA sent for evaluation of electrolytes and to r/o infection. 06/23/17 22:12 Labs grossly unconcerning as below. Believe dizziness to be caused by cerumen impaction. Discharging w/ instructions to f/u with ENT for further evaluation. Patient verbalized understanding and agreement and will comply. Zofran Rx given for nausea control PRN. Laboratory Results - last 24 hr 06/23/17 06/23/17 06/23/17 20:15 20:15 20:15 WBC 7.7 RBC 3.70 Hgb 11.8 Hct 34.7 MCV 94.0 MCH 32.0 MCHC 34.1 RDW 14.9 Plt Count 198 D MPV 9.0 D Neutrophils % 85.4 H Lymphocytes % 9.7 D Monocytes % 4.1 Eosinophils % 0.1 D Basophils % 0.7 Sodium 134 L Potassium 4.2 Chloride 101 Carbon Dioxide 29 Anion Gap 4 L BUN 21 H Creatinine 0.8 Creat Clearance w eGFR > 60 Random Glucose 157 H Calcium 8.5 Total Bilirubin 0.3 AST 32 ALT 26 Alkaline Phosphatase 58 Creatine Kinase 126 Troponin I < 0.02 Total Protein 7.5 Albumin 3.5 Urine Color Ltyellow Urine Appearance Clear Urine pH 8.0 D Ur Specific [place] 1.011 Urine Protein Negative Urine Glucose (UA) Negative Urine Ketones Negative Urine Blood Negative Urine Nitrite Negative Urine Bilirubin Negative Urine Urobilinogen Negative Ur Leukocyte Esterase Negative *DC/Admit/Observation/Transfer Diagnosis at time of Disposition: Dizziness - Discharge Dispostion Disposition: HOME - Prescriptions Prescriptions: Ondansetron HCl [Zofran] 4 mg PO TID PRN #9 tablet PRN Reason: Nausea - Referrals Referrals: Ankush Fu MD [Staff Physician] - - Patient Instructions Printed Discharge Instructions: DI for Dizziness-Nonvertigo Additional Instructions: Please follow-up with ENT specialist as discussed. Return to ER if any fever, chills, pain, altered mental status, or other concerning symptoms. Take zofran as written for nausea as needed. - Post Discharge Activity
--- NOTE | 2017-06-23 20:20 | PDOC ---
Attending Attestation - Resident Resident Name: Elio Ziegler - ED Attending Attestation I have performed the following: I have examined & evaluated the patient, The case was reviewed & discussed with the resident, I agree w/resident's findings & plan - HPI HPI: 06/23/17 20:20 Pt comes with dizziness. Pt was driving when she felt dizzy; however it didn't feel like the room was spinning or like she was falling to one side or the other. Pt afebrile VSS. Appears well and she is alert and giving her entire history clearly. - Physicial Exam PE: 06/23/17 20:20 Agree with resident exam - Medical Decision Making 06/23/17 22:13 Pt has normal labs; normal neuro exam. A+Ox3 and she has bilaterally clogged ears -cerumen impaction, which can be a cause of dizziness- She will be asked to follow with ENT for ear cleaning. D/c home with her daughter in law
[2017-06-23 20:22] LABS: BASO % 0.7 % (0-2.0); EOS % 0.1 % (0-4.5); HEMATOCRIT 34.7 % (32.4-45.2); HEMOGLOBIN 11.8 GM/dL (10.7-15.3); LYMPH % 9.7 % (8-40); MCHC 34.1 g/dl (32.0-36.0); MONO % 4.1 % (3.8-10.2); NEUT % 85.4 % (42.8-82.8); PLATELET COUNT 198 K/MM3 (134-434); RDW 14.9 % (11.6-15.6); WHITE BLOOD COUNT 7.7 K/mm3 (4.0-10.0)
[2017-06-23 20:25] LABS: URINE APPEARANCE CLEAR; URINE BILIRUBIN NEGATIVE (<2.0 mg/dL); URINE COLOR LTYELLOW; URINE GLUCOSE (UA) NEGATIVE (NEGATIVE); URINE KETONE NEGATIVE (NEGATIVE); URINE LEUK ESTERASE NEGATIVE (NEGATIVE); URINE NITRITE NEGATIVE (NEGATIVE); URINE PROTEIN NEGATIVE (NEGATIVE); URINE UROBILINOGEN NEGATIVE mg/dL (0.2-1.0)
[2017-06-23 20:44] LABS: ALBUMIN 3.5 g/dl (3.4-5.0); ANION GAP 4 (8-16); BLOOD UREA NITROGEN 21 mg/dL (7-18); CALCIUM 8.5 mg/dL (8.5-10.1); CHLORIDE 101 mmol/L (98-107); CO2 29 mmol/L (21-32); GLUCOSE,RANDOM 157 mg/dL (74-106); SODIUM 134 mmol/L (136-145)
[2017-06-23 20:57] LABS: ALK PHOS 58 U/L (45-117); BILIRUBIN,TOTAL 0.3 mg/dL (0.2-1.0); CREATININE 0.8 mg/dL (0.55-1.02); SGPT/ALT 26 U/L (12-78); TOT PROT 7.5 g/dl (6.4-8.2)
[2017-06-23 20:58] LABS: POTASSIUM 4.2 mmol/L (3.5-5.1); SGOT/AST 32 U/L (15-37)
[2017-06-23] MEDS ORDERED: ONDANSETRON 4 MG TABLET PO ONE (22:26)
[2017-06-23] MEDS ORDERED: ONDANSETRON *ODT* 4 MG TABLET ONE (22:31)
[2017-06-23 22:49] VITALS: BP 160/68; PULSE 73; TEMP 98.2
--- NOTE | 2017-06-26 00:28 | EKG ---
Test Reason : Blood Pressure : / mmHG Vent. Rate : 069 BPM Atrial Rate : 069 BPM P-R Int : 156 ms QRS Dur : 088 ms QT Int : 422 ms P-R-T Axes : 059 029 047 degrees QTc Int : 452 ms NORMAL SINUS RHYTHM LOW VOLTAGE QRS BORDERLINE ECG WHEN COMPARED WITH ECG OF 21-APR-2017 00:24, NO SIGNIFICANT CHANGE WAS FOUND Confirmed by RASHAD SOFIA MD ([id number]) on 06/26/2017 12:27:56 AM Referred By: Confirmed By:RASHAD SOFIA MD
== END 2017-06-23 23:00 | disposition home or self-care (01) ==
LOC: JER 18:01
DX: R42 Dizziness and giddiness (principal); I10 Essential (primary) hypertension
CPT/HCPCS: 36415; 80053; 81003; 82550; 84484; 85025; 87086; 93005; 93010; 99283-25

== ENCOUNTER 2018-04-26 06:59 | Observation (INO) | payer OTHER, MEDICARE ==
[2018-04-26 07:06] VITALS: BMI 27.6
--- NOTE | 2018-04-26 07:14 | PDOC ---
History of Present Illness - General Chief Complaint: Lightheaded Stated Complaint: DIZZINESS Time Seen by Provider: 04/26/18 07:13 - History of Present Illness Initial Comments: Danita Mariano is an 82yo woman with a PMH of HTN and HLD who presents with an episode of lightheadedness and possible LOC this morning. She states that she woke up, walked to the bathroom, and then became lightheaded and "sat down hard " on the floor. She denies any head injury, and she was able to stand immediately afterwards. She is not sure whether she lost consciousness entirely. Her son and [id number] heard the fall and called EMS. Ms Mariano states that she was diagnosed with a UTI yesterday and started on Macrobid. She took the first dose last night. She is concerned that the antibiotic is what made her lightheaded this morning, as she states that a medication she took several years ago "dropped her liver enzymes." Her son also notes that she was hyponatremic several years ago after starting a diuretic, and he is concerned that her electrolytes are off. Ms Mariano says that she recently had the influenza, diagnosed on Apr 04, but her symptoms have resolved. She was having dysuria and urinary frequency for about a week prior to being seen by her PMD yesterday and diagnosed with a UTI. These symptoms have also improved over the past day. She does not feel dehydrated and reports that she has been drinking a lot of water. She denies fever, chest pain, SOB, nausea/vomiting, change in bowel habits, or any recent episodes of lightheadedness other than this morning. She does endorse a mild cough that started over the past week. Past History - Past Medical History Allergies/Adverse Reactions: Allergies Allergy/AdvReac Type Severity Reaction Status Date / Time codeine AdvReac Verified 04/26/18 07:04 Home Medications: Ambulatory Orders Amlodipine Besylate [Norvasc -] 5 mg PO DAILY 04/20/17 Nebivolol [Bystolic -] 5 mg PO DAILY 04/20/17 Ondansetron HCl [Zofran] 4 mg PO TID PRN #9 tablet 06/23/17 Anemia: No Asthma: No Cancer: No Cardiac Disorders: No CVA: No COPD: No CHF: No Dementia: No Diabetes: No GI Disorders: No Disorders: No HTN: Yes Hypercholesterolemia: No Liver Disease: No Seizures: No Thyroid Disease: No - Surgical History Abdominal Surgery: No Appendectomy: Yes Cardiac Surgery: No Cholecystectomy: No Lung Surgery: No Neurologic Surgery: No Orthopedic Surgery: No - Immunization History Immunization Up to Date: Yes - Suicide/Smoking/Psychosocial Hx Smoking History: Never smoked Have you smoked in the past 12 months: No Information on smoking cessation initiated: No Hx Alcohol Use: No Drug/Substance Use Hx: No Substance Use Type: None Review of Systems - Review of Systems Comments:: General: No fevers, no chills, no weight or appetite change, no malaise HEENT: No changes in vision, no changes in hearing, no congestion, no sore throat CV: No chest pain, no palpitations, no LE edema Pulm: No SOB, +mild cough, no wheezing GI: No nausea or vomiting, no change in bowel habits, no melena : +UTI (+burning, +frequency) Musc: No back pain, no joint swelling. +fall, +chronic L hip pain Skin: No rash, no lesions, no erythema Endo: No excessive thirst, no heat/cold intolerance Heme: No unusual bruising or bleeding, no swollen glands Neuro: No syncope, no numbness/tingling, no focal weakness Vasc: No claudication Psych: No recent change in mood, no SI or HI *Physical Exam - Vital Signs Last Vital Signs Temp Pulse Resp BP Pulse Ox 98.4 F 70 18 141/60 99 04/26/18 07:04 04/26/18 07:04 04/26/18 07:04 04/26/18 07:04 04/26/18 07:04 - Physical Exam Comments: General: Comfortable, no acute distress HEENT: PERRL, EOMI, MMM, voice normal, normal neck ROM, no LAD Cards: RRR, no murmur appreciated Pulm: Comfortable on room air, clear to auscultation bilaterally Abd: Soft, nontender, nondistended : No CVA tenderness Ext: Atraumatic. No LE edema. ROM intact. Strength equal bilaterally Vasc: Extremities WWP Skin: Normal color, no rashes or lesions Neuro: A&Ox3, CN grossly intact, normal speech, motor/sensory grossly intact and symmetric Psych: Mood appropriate to situation, mildly anxious Moderate Sedation - Procedure Monitoring Vital Signs: Procedure Monitoring Vital Signs Temperature 98.4 F 04/26/18 07:04 Pulse Rate 70 04/26/18 07:04 Respiratory Rate 18 04/26/18 07:04 Blood Pressure 141/60 04/26/18 07:04 O2 Sat by Pulse Oximetry (%) 99 04/26/18 07:04 ED Treatment Course - LABORATORY CBC & Chemistry Diagram: 04/26/18 07:49 04/26/18 07:49 Medical Decision Making - Medical Decision Making 04/26/18 07:36 Danita Juarez is an 82yo woman with a PMH of HTN, HLD, recent influenza (3wks ago), diagnosed with UTI yesterday and started on Macrobid who presents with lightheadedness, possible LOC, after waking up this morning. She fell and "sat down hard" on the ground, denies head injury, and was able to stand following the fall. - Could be secondary to mild dehydration from UTI following flu, rx to abx, arrhythmia. No chest pain, SOB, diaphoresis or other symptoms suggesting ACS but will check EKG. Unlikely PE, no tachycardia SOB or known risk factors. - Pt's son reports h/o hyponatremia, concerned that she could have electrolyte abnormalities. States she has been drinking "a lot" of water. - CBC, chemistry, trop, EKG, CXR. Recheck UA, culture. Orthostatics 04/26/18 08:18 - Orthostatic vitals completed. BP 144/56 supine, 122/52 standing. Likely mildly dehydrated - 1L NS bolus ordered - EKG with NSR, HR 71, No ST changes. Normal EKG 04/26/18 08:49 - Labs reviewed. Notable for slight leukocytosis to 12.5. Slight hyponatremia to 132, slight Cl to 96 - Will discuss admission with Ms Fitch 04/26/18 09:30 - Ms Mariano continues to report that her head "feels funny" - CT head ordered for evaluation - CXR with haziness in b/l costophrenic angles. Will CT chest to evaluate for occult infection - Orthostatics rechecked. Improved, but BP now slightly elevated overall to 156/ 86 supine. Pt states she takes home amlodipine at 9:30am. Will give home dose now. 04/26/18 10:02 - CTs completed Reviewed in ED - Head CT w/o obvious pathology, radiology read pending - Chest CT w/ changes c/w COPD especially in b/l bases. Radiology read concurs - Will contact Dr Chanel/Daniel for admission 04/26/18 10:17 - Spoke to Dr Chanel. Will admit. Requesting ceftriaxone for UTI. Discussed with Dr Casas. Elle Trujillo PGY1 *DC/Admit/Observation/Transfer Diagnosis at time of Disposition: Unwitnessed fall - Discharge Dispostion Decision to Admit order: Yes - Referrals - Patient Instructions - Post Discharge Activity
--- NOTE | 2018-04-26 08:03 | PDOC ---
Attending Attestation - Resident Resident Name: CassandraElle - ED Attending Attestation I have performed the following: I have examined & evaluated the patient, The case was reviewed & discussed with the resident, I agree w/resident's findings & plan, Exceptions are as noted - HPI HPI: 82 yo F history HTN, HL, recent flu, started macrobid for UTI presents with episode of LH, poss LOC this morning. She states she "sat down hard" on the floor, but family heard a thump. She states she has been eating and drinking normally. Denies SOB, cp, leg swelling. She states "I don't feel well". - Physicial Exam PE: GENERAL: Awake, alert, and fully oriented, in no acute distress HEAD: No signs of trauma EYES: PERRLA, EOMI, sclera anicteric, conjunctiva clear ENT: Auricles normal inspection, hearing grossly normal, nares patent, oropharynx clear without exudates. Dry mucosa NECK: Normal ROM, supple, no lymphadenopathy, JVD, or masses LUNGS: Breath sounds equal, clear to auscultation bilaterally. No wheezes, and no crackles HEART: Regular rate and rhythm, normal S1 and S2, no murmurs, rubs or gallops ABDOMEN: Soft, nontender, normoactive bowel sounds. No guarding, no rebound. No masses EXTREMITIES: Normal range of motion, no edema. No clubbing or cyanosis. No cords, erythema, or tenderness NEUROLOGICAL: Cranial nerves II through XII grossly intact. Normal speech. Motor and sensation intact. Gait not tested due to nature of complaint SKIN: Warm, Dry, normal turgor, no rashes or lesions noted. - Medical Decision Making Pt appears mildly dehydrated on initial evaluation. No change in HR with orthostatics, but she did have a 20 pt change in BP. She is attributing her symptoms to the macrobid, however, near syncope is not a common finding with this medication. This may be due to recent illness, but with her continuing to feel ill in the ED, would recommend at least observation in light of suspectd syncope.
[2018-04-26 08:12] LABS: BASO % 0.2 % (0-2.0); EOS % 0.5 % (0-4.5); HEMATOCRIT 35.7 % (32.4-45.2); HEMOGLOBIN 12.4 GM/dL (10.7-15.3); LYMPH % 2.7 % (8-40); MCH 32.7 pg (25.7-33.7); MCHC 34.8 g/dl (32.0-36.0); MEAN CELL VOLUME 93.9 fl (80-96); MEAN PLT VOLUME 8.7 fl (7.5-11.1); MONO % 3.7 % (3.8-10.2); NEUT % 92.9 % (42.8-82.8); PLATELET COUNT 198 K/MM3 (134-434); RDW 13.7 % (11.6-15.6); WHITE BLOOD COUNT 12.5 K/mm3 (4.0-10.0)
[2018-04-26] MEDS ORDERED: SODIUM CHLORIDE 0.9% 500 ML INFUS.BAG IV ONE (08:19)
[2018-04-26 08:32] LABS: ALBUMIN 3.6 g/dl (3.4-5.0); ALK PHOS 60 U/L (45-117); ANION GAP 7 MMOL/L (8-16); BILIRUBIN,TOTAL 0.7 mg/dL (0.2-1); BLOOD UREA NITROGEN 16 mg/dL (7-18); CALCIUM 8.7 mg/dL (8.5-10.1); CHLORIDE 96 mmol/L (98-107); CO2 28 mmol/L (21-32); CREATININE 0.8 mg/dL (0.55-1.3); GLUCOSE,RANDOM 97 mg/dL (74-106); PHOSPHOROUS 2.5 mg/dL (2.5-4.9); POTASSIUM 3.9 mmol/L (3.5-5.1); SGOT/AST 30 U/L (15-37); SGPT/ALT 23 U/L (13-61); SODIUM 132 mmol/L (136-145); TOT PROT 7.5 g/dl (6.4-8.2)
[2018-04-26] MEDS ORDERED: amLODIPine BESYLATE 5 MG TABLET (FP) PO ONE (09:32)
[2018-04-26 09:34] LABS: EPI CELLS 3.2 /HPF (0-5); PH,URINE 7.5 (5.0-8.0); URINE APPEARANCE CLEAR; URINE BACTERIA 5.076 /hpf (NEGATIVE); URINE BILIRUBIN NEGATIVE (<2.0 mg/dL); URINE COLOR YELLOW; URINE GLUCOSE (UA) NEGATIVE (NEGATIVE); URINE KETONE NEGATIVE (NEGATIVE); URINE LEUK ESTERASE 2+ (NEGATIVE); URINE NITRITE NEGATIVE (NEGATIVE); URINE PROTEIN NEGATIVE (NEGATIVE); URINE RBC 9 /hpf (0-4); URINE UROBILINOGEN 0.2 mg/dL (0.2-1.0); URINE WBC 46 /hpf (0-5)
[2018-04-26 10:12] LABS: URINE CASTS 10.53 /hpf (0-8)
[2018-04-26 10:23] LABS: ANISOCYTOSIS 0; MACROCYTOSIS 0; PLATELET ESTIMATE NORMAL
[2018-04-26] MEDS ORDERED: amLODIPine BESYLATE 5 MG TABLET (FP) ONE (10:32)
[2018-04-26] MEDS ORDERED: amLODIPine BESYLATE 2.5 MG TABLET (FP) PO ONE (10:35)
[2018-04-26] MEDS ORDERED: CEFTRIAXONE 2 GM in DEXTROSE 5%-WATER 100 ML IVPB ONE (10:45)
[2018-04-26] MEDS ORDERED: CEFTRIAXONE 2 GM/100 ML BAG IVPB ONE (11:28)
[2018-04-26] MEDS ORDERED: ACETAMINOPHEN 325 MG TABLET (FP) PO PRN (12:39)
[2018-04-26] MEDS ORDERED: SODIUM CHLORIDE 1,000 ML IV SCH (12:45)
--- NOTE | 2018-04-26 12:46 | HP ---
Admitting History and Physical - Primary Care Physician PCP: Sarah Chanel - Admission Chief Complaint: syncope History of Present Illness: pt seen/ examined in er chart reviewed was seen in office yesterday almost after one year -- was prescribed Macrobid for uti. Er records reviewed/ discussed with pt Per er records Danita Mariano is an 82yo woman with a PMH of HTN and HLD who presents with an episode of lightheadedness and possible LOC this morning. She states that she woke up, walked to the bathroom, and then became lightheaded and "sat down hard " on the floor. She denies any head injury, and she was able to stand immediately afterwards. She is not sure whether she lost consciousness entirely. Her son and [id number] heard the fall and called EMS. Ms Mariano states that she was diagnosed with a UTI yesterday and started on Macrobid. She took the first dose last night. She is concerned that the antibiotic is what made her lightheaded this morning, as she states that a medication she took several years ago "dropped her liver enzymes." Her son also notes that she was hyponatremic several years ago after starting a diuretic, and he is concerned that her electrolytes are off. Ms Mariano says that she recently had the influenza, diagnosed on Apr 04, but her symptoms have resolved. She was having dysuria and urinary frequency for about a week prior to being seen by her PMD yesterday and diagnosed with a UTI. These symptoms have also improved over the past day. She does not feel dehydrated and reports that she has been drinking a lot of water. She denies fever, chest pain, SOB, nausea/vomiting, change in bowel habits, or any recent episodes of lightheadedness other than this morning. She does endorse a mild cough that started over the past week. work up -ve for acute pathology in er including ekg/ ct head / labs etc u/c send ct chest -- moderate / severe copd / non specific adenopathy-- pt says never smoked. pt given abx / fluids-- will be kept for observation ar present no complains but feels body -- streched very anxious denies cp/sob/abd pain History Source: Patient Limitations to Obtaining History: No Limitations - Past Medical History Cardiovascular: Yes: HTN - Past Surgical History Past Surgical History: Yes: Appendectomy - Smoking History Smoking history: Never smoked Have you smoked in the past 12 months: No - Alcohol/Substance Use Hx Alcohol Use: No History of Substance Use: reports: None - Social History ADL: Independent Occupation: Works at [employer] History of Recent Travel: No Home Medications - Allergies Allergies/Adverse Reactions: Allergies Allergy/AdvReac Type Severity Reaction Status Date / Time codeine AdvReac Verified 04/26/18 07:04 - Home Medications Home Medications: Ambulatory Orders Amlodipine Besylate [Norvasc -] 5 mg PO DAILY 04/20/17 Nebivolol [Bystolic -] 5 mg PO DAILY 04/20/17 Ondansetron HCl [Zofran] 4 mg PO TID PRN #9 tablet 06/23/17 Review of Systems Findings/Remarks: see gambell Physical Examination Vital Signs: Vital Signs Temperature 98.4 F 04/26/18 07:04 Pulse Rate 76 04/26/18 09:18 Respiratory Rate 18 04/26/18 07:04 Blood Pressure 156/56 L 04/26/18 09:18 O2 Sat by Pulse Oximetry (%) 99 04/26/18 07:04 Constitutional: Yes: No Distress, Anxious Eyes: Yes: WNL, Conjunctiva Clear HENT: Yes: WNL Neck: Yes: Supple, Trachea Midline Cardiovascular: Yes: Regular Rate and Rhythm Respiratory: Yes: CTA Bilaterally Gastrointestinal: Yes: Normal Bowel Sounds, Soft Edema: No Neurological: Yes: WNL, Alert, Cran Nerves II-XII Intact Psychiatric: Yes: Other (anxious) Labs: CBC, BMP 04/26/18 07:49 04/26/18 07:49 Imaging - Results Chest X-ray: Report Reviewed Cat Scan: Report Reviewed EKG: Report Reviewed Problem List - Problems (1) Syncope Code(s): R55 - SYNCOPE AND COLLAPSE Qualifiers: Encounter type: initial encounter (2) Anxiety Code(s): F41.9 - ANXIETY DISORDER, UNSPECIFIED (3) Unwitnessed fall Code(s): R29.6 - REPEATED FALLS (4) Hypertension Code(s): I10 - ESSENTIAL (PRIMARY) HYPERTENSION (5) Hyponatremia Code(s): E87.1 - HYPO-OSMOLALITY AND HYPONATREMIA (6) Urinary tract infection Code(s): N39.0 - URINARY TRACT INFECTION, SITE NOT SPECIFIED Qualifiers: Encounter type: subsequent encounter (7) COPD (chronic obstructive pulmonary disease) Code(s): J44.9 - CHRONIC OBSTRUCTIVE PULMONARY DISEASE, UNSPECIFIED Assessment/Plan Discussed Monitor abx f/u cultures will consult cardiology and pulmonary also will follow
--- NOTE | 2018-04-26 14:14 | CON.CARD ---
Consult Consult Specialty:: Cardiology Referred by:: Dr. Chanel Reason for Consultation:: Presyncope - History of Present Illness Chief Complaint: Weakness History of Present Illness: 82 F PMH HTN, remote hx of SVT ablation, diagnosed with UTI and started on Macrobid. Shortly after starting abx, felt extremely weal and slumped to her knees walking back from bathroom this AM. Denies LOC. Denies CP, SOB, palpitations. Denies focal neuro deficits. Head CT in ER negative for acute pathology. - History Source History Provided By: Patient - Past Medical History Cardio/Vascular: Yes: HTN, Other (PSVT s/p ablation years ago) Pulmonary: Yes: COPD Gastrointestinal: No: Ascites, Cancer, Constipation, Crohn's Disease, Diverticulitis, Diverticulosis, Esophageal Varices, Gastritis, GERD, GI Bleed, Hemorrhoids, Hiatal Hernia, Inflamatory Bowel Disease, Irritable Bowel Disease, Pancreatitis, Peptic Ulcer Disease, Ulcerative Colitis, Other Hepatobiliary: No: Cirrhosis, Cholelithiasis, Cholecystitis, Choledocholithiasis , Hepatitis A, Hepatitis B, Hepatitis C, Other Renal/: No: Renal Failure, Renal Inusuff, BPH, Cancer, Hematuria, Hemodialysis , Neurogenic Bladder, Renal Calculi, UTI, Other Reproductive: No: Ectopic , Endometriosis, Fibroids, PID, Polycystic Ovary Syndrome, Postmenopausal, Other Psych: No: Addictions, Anxiety, Bipolar, Depression, Panic, Psychosis, Schizophrenia, Other Musculoskeletal: No: Bursitis, Chronic low back pain, Hemiparesis, Hemiplegia, Osteoarthritis, Paraplegia, Other Endocrine: No: Collbran's Disease, Anabell's Disease, Diabetes Insipidus, Diabetes Mellitus, Hyperparathyroidism, Hyperthyroidism, Hypothyroidism, Osteopenia, SIADH, Other Dermatology: No: Basal Cell, Cellulitis, Eczema, Melanoma, Psoriasis, Squamous Cell, Other - Past Surgical History Past Surgical History: Yes: Appendectomy - Alcohol/Substance Use Hx Alcohol Use: No History of Substance Use: reports: None - Smoking History Smoking history: Never smoked Have you smoked in the past 12 months: No - Social History ADL: Independent Occupation: Works at [employer] History of Recent Travel: No Home Medications - Allergies Allergies/Adverse Reactions: Allergies Allergy/AdvReac Type Severity Reaction Status Date / Time codeine AdvReac Verified 04/26/18 07:04 - Home Medications Home Medications: Ambulatory Orders Amlodipine Besylate [Norvasc -] 5 mg PO DAILY 04/20/17 Nebivolol [Bystolic -] 5 mg PO DAILY 04/20/17 Ondansetron HCl [Zofran] 4 mg PO TID PRN #9 tablet 06/23/17 Family Disease History - Family Disease History Family History: Unremarkable Review of Systems Findings/Remarks: see HPI. Denies edema, palpitations. Denies PND, orthopnea. - Review of Systems Constitutional: reports: Lethargy, Weakness Eyes: reports: No Symptoms HENT: reports: No Symptoms Neck: reports: No Symptoms Cardiovascular: reports: No Symptoms Respiratory: reports: No Symptoms Gastrointestinal: reports: No Symptoms Genitourinary: reports: No Symptoms Breasts: reports: No Symptoms Reported Musculoskeletal: reports: No Symptoms Neurological: denies: No Symptoms, Change in LOC, Change in Speech, Confusion, Dizziness, Headache, Incoordination, Numbness, Parasthesia, Pre-Existing Deficit , Seizure, Syncope, Tremors, Unsteady Gait, Weakness, Other Endocrine: denies: No Symptoms, Excessive Sweating, Flushing, Increased Hunger, Increased Thirst, Intolerance to Cold, Intolerance to Heat, Unexplained Weight Gain, Unexplained Weight Loss, Other Hematology/Lymphatic: denies: No Symptoms, Easily Bruised, Excessive Bleeding, Swollen Glands, Other Psychiatric: denies: No Symptoms, Altered Sleep Pattern, Anxiety, Depression, Hallucinations, Panic, Paranoia, Suicidal, Other - Risk Factors Known Risk Factors: Yes: Hypertension Vital Signs: Vital Signs Temperature 99.9 F H 04/26/18 10:18 Pulse Rate 80 04/26/18 10:18 Respiratory Rate 18 04/26/18 13:39 Blood Pressure 138/52 L 04/26/18 10:18 O2 Sat by Pulse Oximetry (%) 99 04/26/18 13:39 Constitutional: Yes: No Distress, Calm HENT: Yes: Other (very dry oropharynx) Respiratory: Yes: CTA Bilaterally Gastrointestinal: Yes: Soft Cardiovascular: Yes: Regular Rate and Rhythm JVD: No Carotid Bruit: No PMI: Non-Displaced Heart Sounds: Yes: S1, S2 Edema: No Neurological: Yes: Alert, Oriented ...Motor Strength: WNL Psychiatric: Yes: WNL - Other Data Labs, Other Data: CBC, BMP 04/26/18 07:49 04/26/18 07:49 Troponin, BNP 04/26/18 07:49 Troponin I < 0.02 Troponin, BNP 04/26/18 07:49 Troponin I < 0.02 NSR 71bpm, QTc = 458ms Echo: Pending Ejection Fraction %: LVEF > or = 40 % Imaging - Results X-ray: Report Reviewed Cat Scan: Report Reviewed EKG: Image Reviewed Problem List - Problems (1) Anxiety Code(s): F41.9 - ANXIETY DISORDER, UNSPECIFIED (2) COPD (chronic obstructive pulmonary disease) Code(s): J44.9 - CHRONIC OBSTRUCTIVE PULMONARY DISEASE, UNSPECIFIED (3) Syncope Code(s): R55 - SYNCOPE AND COLLAPSE Qualifiers: Encounter type: initial encounter (4) Fever Code(s): R50.9 - FEVER, UNSPECIFIED Qualifiers: Fever type: unspecified Qualified Code(s): R50.9 - Fever, unspecified (5) Hyponatremia Code(s): E87.1 - HYPO-OSMOLALITY AND HYPONATREMIA (6) Urinary tract infection Code(s): N39.0 - URINARY TRACT INFECTION, SITE NOT SPECIFIED Qualifiers: Encounter type: subsequent encounter Assessment/Plan IMP: 1. Low grade fever secondary to suspected UTI 2. Suspected dehydration in setting of #1 3. Hyponatremia most likely secondary to #2 4. Presyncope likely due to relative dehydration secondary to urinary tract infection REC: 1. Antibiotics and culture f/u as per PMD 2. Agree with IV hydration. 3. Daily BMP to track Na+ 4. Echocardiogram for EF assessment. 5. Do not suspect cardiac arrhythmia at this time; if symptoms recur after hydration/treatment of UTI holter monitor can be arranged. Thank you. Will follow.
--- NOTE | 2018-04-26 15:41 | CON.PULM ---
Consult Consult Specialty:: PULMONARY Referred by:: ADINA Reason for Consultation:: FEVER R/O PNEUMONIA - History of Present Illness Chief Complaint: FEVER/WEAKNESS History of Present Illness: 82 yo F history HTN, HL, recent flu, started macrobid for UTI presents with episode of LH, poss LOC this morning. She states she "sat down hard" on the floor, but family heard a thump. She states she has been eating and drinking normally. Denies SOB, cp, leg swelling. She states "I don't feel well". 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 Cardio/Vascular: Yes: HTN, Other (PSVT s/p ablation years ago) Pulmonary: Yes: COPD Gastrointestinal: No: Ascites, Cancer, Constipation, Crohn's Disease, Diverticulitis, Diverticulosis, Esophageal Varices, Gastritis, GERD, GI Bleed, Hemorrhoids, Hiatal Hernia, Inflamatory Bowel Disease, Irritable Bowel Disease, Pancreatitis, Peptic Ulcer Disease, Ulcerative Colitis, Other Hepatobiliary: No: Cirrhosis, Cholelithiasis, Cholecystitis, Choledocholithiasis , Hepatitis A, Hepatitis B, Hepatitis C, Other Renal/: No: Renal Failure, Renal Inusuff, BPH, Cancer, Hematuria, Hemodialysis , Neurogenic Bladder, Renal Calculi, UTI, Other Psych: No: Addictions, Anxiety, Bipolar, Depression, Panic, Psychosis, Schizophrenia, Other Musculoskeletal: No: Bursitis, Chronic low back pain, Hemiparesis, Hemiplegia, Osteoarthritis, Paraplegia, Other Endocrine: No: Wall's Disease, Anabell's Disease, Diabetes Insipidus, Diabetes Mellitus, Hyperparathyroidism, Hyperthyroidism, Hypothyroidism, Osteopenia, SIADH, Other Dermatology: No: Basal Cell, Cellulitis, Eczema, Melanoma, Psoriasis, Squamous Cell, Other - Past Surgical History Past Surgical History: Yes: Appendectomy - Alcohol/Substance Use Hx Alcohol Use: No History of Substance Use: reports: None - Smoking History Smoking history: Never smoked Have you smoked in the past 12 months: No - Social History ADL: Independent Occupation: Works at [employer] History of Recent Travel: No Home Medications - Allergies Allergies/Adverse Reactions: Allergies Allergy/AdvReac Type Severity Reaction Status Date / Time codeine AdvReac Verified 04/26/18 07:04 - Home Medications Home Medications: Ambulatory Orders Amlodipine Besylate [Norvasc -] 5 mg PO DAILY 04/20/17 Nebivolol [Bystolic -] 5 mg PO DAILY 04/20/17 Ondansetron HCl [Zofran] 4 mg PO TID PRN #9 tablet 06/23/17 Family Disease History - Family Disease History Family History: Unremarkable Review of Systems - Review of Systems Constitutional: reports: Fever, Lethargy, Loss of Appetite Eyes: denies: Blurred Vision HENT: denies: Difficult Swallowing Neck: denies: Decreased ROM Cardiovascular: denies: Chest Pain Respiratory: denies: Cough, Exercise Intolerance, Hemoptysis, SOB, SOB on Exertion, Wheezing Gastrointestinal: denies: Abdominal Pain Physical Exam Vital Sings: Vital Signs Temperature 99.9 F H 04/26/18 10:18 Pulse Rate 80 04/26/18 10:18 Respiratory Rate 18 04/26/18 13:39 Blood Pressure 138/52 L 04/26/18 10:18 O2 Sat by Pulse Oximetry (%) 99 04/26/18 13:39 Constitutional: Yes: Anxious Eyes: Yes: EOM Intact HENT: Yes: Normocephalic Neck: Yes: Trachea Midline Cardiovascular: Yes: Regular Rate and Rhythm Respiratory: Yes: Diminished (AT BASES) Gastrointestinal: Yes: Normal Bowel Sounds Extremities: Yes: WNL Labs: CBC, BMP 04/26/18 07:49 04/26/18 07:49 Imaging - Results Chest X-ray: Report Reviewed, Image Reviewed Cat Scan: Report Reviewed, Image Reviewed Problem List - Problems (1) Anxiety Code(s): F41.9 - ANXIETY DISORDER, UNSPECIFIED (2) COPD (chronic obstructive pulmonary disease) Code(s): J44.9 - CHRONIC OBSTRUCTIVE PULMONARY DISEASE, UNSPECIFIED (3) Syncope Code(s): R55 - SYNCOPE AND COLLAPSE Qualifiers: Encounter type: initial encounter (4) Unwitnessed fall Code(s): R29.6 - REPEATED FALLS (5) Fever Code(s): R50.9 - FEVER, UNSPECIFIED Qualifiers: Fever type: unspecified Qualified Code(s): R50.9 - Fever, unspecified (6) Urinary tract infection Code(s): N39.0 - URINARY TRACT INFECTION, SITE NOT SPECIFIED Qualifiers: Encounter type: subsequent encounter Assessment/Plan NO EVIDENCE TO SUPPORT SUPERIMPOSED PNEUMONIA UPON COPD WOULD TREAT FOR UTI AND VOLUME DEPLETION CORRECT LYTES APPEARS COMFORTABLE FROM A PULMONARY STANDPOINT WILL FOLLOW Jozef MONZON MD
--- NOTE | 2018-04-26 15:59 | ECHO ---
Name: OPAL CAPPS Exam:Adult Echocardiogram Study Date: 04/26/2018 02:49 PM Age: 82 yrs Reason For Study: SYNCOPE Height: 61 in Weight: 147 lb BSA: 1.7 m2 MMode/2D Measurements & Calculations IVSd: 0.84 cm Ao root diam: 3.2 cm LVIDd: 4.4 cm LA dimension: 4.2 cm LVIDs: 3.3 cm LVPWd: 0.83 cm EDV(Teich): 88.0 ml LVOT diam: 2.1 cm ESV(Teich): 43.0 ml TAPSE: 2.6 cm Doppler Measurements & Calculations MV E max derek: 123.9 cm/sec Ao V2 max: 150.3 cm/sec MV A max derek: 83.4 cm/sec Ao max P.0 mmHg MV E/A: 1.5 Ao V2 mean: 110.2 cm/sec MV dec time: 0.26 sec Ao mean P.5 mmHg Ao V2 VTI: 31.4 cm AI P1/2t: 345.3 msec STORM(V,D): 2.8 cm2 AI max derek: 239.4 cm/sec LV V1 max P.8 mmHg AI max P.9 mmHg LV V1 max: 120.4 cm/sec AI dec slope: 203.1 cm/sec2 MR max derek: 402.4 cm/sec TR max derek: 222.1 cm/sec MR max P.0 mmHg TR max P.8 mmHg PI end-d derek: 122.2 cm/sec Med Peak E' Derek: 8.8 cm/sec Med E/e': 14.1 Lat Peak E' Derek: 9.3 cm/sec Lat E/e': 13.4 Left Ventricle Left ventricular systolic function is normal. Ejection Fraction = 55-60%. Right Ventricle The right ventricle is normal in size and function. Atria The left atrium is mildly dilated. Mitral Valve The mitral valve leaflets appear thickened, but open well. Prolapse of the posterior mitral leaflet(s ). There is no mitral valve stenosis. There is mild mitral regurgitation. Tricuspid Valve The tricuspid valve is not well visualized, but is grossly normal. There is no tricuspid stenosis. Th ere is mild tricuspid regurgitation. Aortic Valve The aortic valve opens well. No hemodynamically significant valvular aortic stenosis. No aortic regur gitation is present. Pulmonic Valve The pulmonic valve is not well seen, but is grossly normal. There is no pulmonic valvular stenosis. Great Vessels The aortic root is normal size. Pericardium/Pleura There is no pericardial effusion. Interpretation Summary Left ventricular systolic function is normal. Ejection Fraction = 55-60%. The right ventricle is normal in size and function. The left atrium is mildly dilated. Prolapse of the posterior mitral leaflet(s). The mitral valve leaflets appear thickened, but open well. There is mild mitral regurgitation. There is no pericardial effusion. MD Deras *Delvin 04/26/2018 03:58 PM
--- NOTE | 2018-04-26 17:18 | PN ---
Progress Note (short form) - Note Progress Note: ID CONSULT DICTATED UTI /POSSIBLE SEPSIS SECONDARY TO UTI AWAIT C/S EMPIRIC [id number]
[2018-04-26] MEDS ORDERED: CEFTRIAXONE 1 GM in DEXTROSE 5%-WATER - 50 ML IVPB ONE (17:30)
[2018-04-26] MEDS ORDERED: cefTRIAXone SODIUM 1 GM VIAL ONE (18:29)
[2018-04-26] MEDS ORDERED: DEXTROSE 5%-WATER - 50 ML IVPB ONE (18:30)
[2018-04-26] MEDS: HEPARIN NA (PORCINE) 5,000 UNITS/ML 1ML VIAL SQ SCH (22:36)
[2018-04-26] MEDS: NEBIVOLOL 5 MG TABLET (FP) PO SCH (22:36)
[2018-04-27 07:26] LABS: BASO % 0.4 % (0-2.0); EOS % 3.8 % (0-4.5); HEMATOCRIT 33.3 % (32.4-45.2); HEMOGLOBIN 11.8 GM/dL (10.7-15.3); LYMPH % 7.7 % (8-40); MCHC 35.3 g/dl (32.0-36.0); MEAN CELL VOLUME 93.5 fl (80-96); MEAN PLT VOLUME 8.9 fl (7.5-11.1); MONO % 6.7 % (3.8-10.2); NEUT % 81.4 % (42.8-82.8); PLATELET COUNT 177 K/MM3 (134-434); RBC 3.56 M/mm3 (3.60-5.2); RDW 13.8 % (11.6-15.6)
[2018-04-27 07:49] LABS: ALBUMIN 2.7 g/dl (3.4-5.0); ALK PHOS 45 U/L (45-117); ANION GAP 7 MMOL/L (8-16); BILIRUBIN,TOTAL 0.4 mg/dL (0.2-1); BLOOD UREA NITROGEN 11 mg/dL (7-18); CALCIUM 7.9 mg/dL (8.5-10.1); CHLORIDE 97 mmol/L (98-107); CO2 26 mmol/L (21-32); CREATININE 0.6 mg/dL (0.55-1.3); GLUCOSE,RANDOM 84 mg/dL (74-106); MAGNESIUM 2.1 mg/dL (1.8-2.4); POTASSIUM 3.8 mmol/L (3.5-5.1); SGOT/AST 28 U/L (15-37); SGPT/ALT 21 U/L (13-61); SODIUM 130 mmol/L (136-145)
[2018-04-27] MEDS ORDERED: DEXTROSE 5%-WATER 100 ML IVPB ONE (08:53)
[2018-04-27] MEDS: HEPARIN NA (PORCINE) 5,000 UNITS/ML 1ML VIAL SQ SCH ×2 (09:51→22:26)
[2018-04-27] MEDS: amLODIPine BESYLATE 5 MG TABLET (FP) PO SCH ×2 (09:51→09:55)
[2018-04-27] MEDS: CEFTRIAXONE 2 GM in DEXTROSE 5%-WATER 100 ML IVPB SCH (09:51)
[2018-04-27] MEDS: NEBIVOLOL 5 MG TABLET (FP) PO SCH ×2 (10:00→22:26)
[2018-04-27] MEDS ORDERED: CEFTRIAXONE 1 GM in DEXTROSE 5%-WATER - 50 ML IVPB SCH (10:00)
--- NOTE | 2018-04-27 12:13 | PN ---
Progress Note (short form) - Note Progress Note: Pt seen/examined feels better mood is also better-- less anxious - wants norvasc 2.5 and bystolic at bed time only denies pain afebrile all consults noted / appreciated Vital Signs Temp 99.1 F 04/27/18 03:00 Pulse 66 04/27/18 03:00 Resp 20 04/27/18 04:00 BP 124/58 L 04/27/18 03:00 Pulse Ox 97 04/27/18 04:00 Intake & Output 04/26/18 04/27/18 04/27/18 23:59 11:59 23:59 Intake Total 350 250 Balance 350 250 Intake: Oral 350 250 Other: Voiding Method Toilet Toilet # Unmeasured Voids Void 3 3 Bowel Movement No Active Medications Acetaminophen (Tylenol -) 650 mg PO Q4H PRN PRN Reason: PAIN LEVEL 1-5 Last Admin: 04/26/18 17:13 Dose: 650 mg Amlodipine Besylate (Norvasc -) 2.5 mg PO DAILY [facility] Heparin Sodium (Porcine) (Heparin -) 5,000 unit SQ BID [facility] Last Admin: 04/27/18 09:51 Dose: 5,000 unit Ceftriaxone Sodium 2 gm/ (Dextrose) 100 mls @ 100 mls/hr IVPB DAILY [facility]; Protocol Last Admin: 04/27/18 09:51 Dose: 100 mls/hr Nebivolol (Bystolic -) 5 mg PO HS [facility] CBC, BMP 04/27/18 06:00 04/27/18 06:00 Microbiology 04/26/18 09:16 Urine Culture - Preliminary Urine - Urine Clean Catch Physical Examination Constitutional: Yes: No Distress, comfortable Eyes: Yes: WNL, Conjunctiva Clear HENT: Yes: WNL Neck: Yes: Supple, Trachea Midline Cardiovascular: Yes: Regular Rate and Rhythm Respiratory: Yes: CTA Bilaterally Gastrointestinal: Yes: Normal Bowel Sounds, Soft Edema: No Neurological: Yes: WNL, Alert, Cran Nerves II-XII Intact Psychiatric: Yes: Calm today Imaging - Results Chest X-ray: Report Reviewed Cat Scan: Report Reviewed EKG: Report Reviewed echo -- reviewed Assessment/Plan Discussed Monitor abx f/u cultures f/u labs will follow. oob - chair Problem List - Problems (1) Syncope Code(s): R55 - SYNCOPE AND COLLAPSE Qualifiers: Encounter type: initial encounter (2) Anxiety Code(s): F41.9 - ANXIETY DISORDER, UNSPECIFIED (3) Unwitnessed fall Code(s): R29.6 - REPEATED FALLS (4) Hypertension Code(s): I10 - ESSENTIAL (PRIMARY) HYPERTENSION (5) Hyponatremia Code(s): E87.1 - HYPO-OSMOLALITY AND HYPONATREMIA (6) Urinary tract infection Code(s): N39.0 - URINARY TRACT INFECTION, SITE NOT SPECIFIED Qualifiers: Encounter type: subsequent encounter (7) COPD (chronic obstructive pulmonary disease) Code(s): J44.9 - CHRONIC OBSTRUCTIVE PULMONARY DISEASE, UNSPECIFIED
[2018-04-27] MEDS: amLODIPine BESYLATE 2.5 MG TABLET (FP) PO SCH (12:36)
--- NOTE | 2018-04-27 12:36 | PN ---
Progress Note (short form) - Note Progress Note: PULMONARY SUBJECTIVE IMPROVEMENT LOW GRADE TEMP ANICTERIC BIBASILAR INSP CRACKLES S1S2 BS+ NO EDEMA LABS/MEDS/IMAGES/NOTES REVIEWED (1) Anxiety Code(s): F41.9 - ANXIETY DISORDER, UNSPECIFIED (2) COPD (chronic obstructive pulmonary disease) Code(s): J44.9 - CHRONIC OBSTRUCTIVE PULMONARY DISEASE, UNSPECIFIED (3) Syncope Code(s): R55 - SYNCOPE AND COLLAPSE Qualifiers: Encounter type: initial encounter (4) Unwitnessed fall Code(s): R29.6 - REPEATED FALLS (5) Fever Code(s): R50.9 - FEVER, UNSPECIFIED Qualifiers: Fever type: unspecified Qualified Code(s): R50.9 - Fever, unspecified (6) Urinary tract infection Code(s): N39.0 - URINARY TRACT INFECTION, SITE NOT SPECIFIED Qualifiers: Encounter type: subsequent encounter NO EVIDENCE TO SUPPORT SUPERIMPOSED PNEUMONIA UPON COPD WOULD TREAT FOR UTI AND VOLUME DEPLETION CORRECT LYTES REMAINS COMFORTABLE FROM A PULMONARY STANDPOINT Jozef MONZON MD Problem List - Problems (1) Anxiety Code(s): F41.9 - ANXIETY DISORDER, UNSPECIFIED (2) COPD (chronic obstructive pulmonary disease) Code(s): J44.9 - CHRONIC OBSTRUCTIVE PULMONARY DISEASE, UNSPECIFIED (3) Syncope Code(s): R55 - SYNCOPE AND COLLAPSE Qualifiers: Encounter type: initial encounter (4) Unwitnessed fall Code(s): R29.6 - REPEATED FALLS (5) Fever Code(s): R50.9 - FEVER, UNSPECIFIED Qualifiers: Fever type: unspecified Qualified Code(s): R50.9 - Fever, unspecified (6) Urinary tract infection Code(s): N39.0 - URINARY TRACT INFECTION, SITE NOT SPECIFIED Qualifiers: Encounter type: subsequent encounter
--- NOTE | 2018-04-27 13:49 | PN ---
Progress Note, Physician History of Present Illness: Danita Mariano is an 82yo woman with a PMH of HTN and HLD who presents with an episode of lightheadedness and possible LOC this morning. She states that she woke up, walked to the bathroom, and then became lightheaded and "sat down hard " on the floor. She denies any head injury, and she was able to stand immediately afterwards. She is not sure whether she lost consciousness entirely. Her son and [id number] heard the fall and called EMS. Ms Mariano states that she was diagnosed with a UTI yesterday and started on Macrobid. She took the first dose last night. She is concerned that the antibiotic is what made her lightheaded this morning, as she states that a medication she took several years ago "dropped her liver enzymes." Her son also notes that she was hyponatremic several years ago after starting a diuretic, and he is concerned that her electrolytes are off. Ms Mariano says that she recently had the influenza, diagnosed on Apr 04, but her symptoms have resolved. She was having dysuria and urinary frequency for about a week prior to being seen by her PMD yesterday and diagnosed with a UTI. These symptoms have also improved over the past day. She does not feel dehydrated and reports that she has been drinking a lot of water. She denies fever, chest pain, SOB, nausea/vomiting, change in bowel habits, or any recent episodes of lightheadedness other than this morning. She does endorse a mild cough that started over the past week. - Current Medication List Current Medications: Active Medications Acetaminophen (Tylenol -) 650 mg PO Q4H PRN PRN Reason: PAIN LEVEL 1-5 Last Admin: 04/26/18 17:13 Dose: 650 mg Amlodipine Besylate (Norvasc -) 2.5 mg PO DAILY [facility] Last Admin: 04/27/18 12:36 Dose: 2.5 mg Heparin Sodium (Porcine) (Heparin -) 5,000 unit SQ BID [facility] Last Admin: 04/27/18 09:51 Dose: 5,000 unit Ceftriaxone Sodium 2 gm/ (Dextrose) 100 mls @ 100 mls/hr IVPB DAILY [facility]; Protocol Last Admin: 04/27/18 09:51 Dose: 100 mls/hr Nebivolol (Bystolic -) 5 mg PO HS [facility] - Objective Vital Signs: Vital Signs Temperature 99.1 F 04/27/18 03:00 Pulse Rate 66 04/27/18 03:00 Respiratory Rate 20 04/27/18 04:00 Blood Pressure 124/58 L 04/27/18 03:00 O2 Sat by Pulse Oximetry (%) 97 04/27/18 04:00 Labs: CBC, BMP 04/27/18 06:00 04/27/18 06:00 Problem List - Problems (1) Near syncope Assessment/Plan: f/u orthostatic vital signs. Maintain hydration. ECHO: normal LVEF. On antibiotic for UTI. Code(s): R55 - SYNCOPE AND COLLAPSE (2) COPD (chronic obstructive pulmonary disease) Code(s): J44.9 - CHRONIC OBSTRUCTIVE PULMONARY DISEASE, UNSPECIFIED (3) Urinary tract infection Assessment/Plan: on antibioitic (Rocephin) Code(s): N39.0 - URINARY TRACT INFECTION, SITE NOT SPECIFIED Qualifiers: Encounter type: subsequent encounter (4) Hypertension Assessment/Plan: On amlodiine and Bystolic. ECHO: normal LVEF; mild LAE. TSH WNL. Code(s): I10 - ESSENTIAL (PRIMARY) HYPERTENSION (5) PSVT (paroxysmal supraventricular tachycardia) Assessment/Plan: On Bystolic for BP, HR control. Code(s): I47.1 - SUPRAVENTRICULAR TACHYCARDIA (6) Hyponatremia Assessment/Plan: f/u Na; presently 130 Code(s): E87.1 - HYPO-OSMOLALITY AND HYPONATREMIA (7) Hyperlipidemia Assessment/Plan: f/u lipid panel Code(s): E78.5 - HYPERLIPIDEMIA, UNSPECIFIED
--- NOTE | 2018-04-27 14:04 | CONS ---
DATE OF CONSULTATION: DATE OF DICTATION: 04/27/2018 HISTORY OF PRESENT ILLNESS: The patient is an 82-year-old female admitted to the hospital on April 26, 2018, evaluated for sepsis. The patient presented with an episode of lightheadedness and dizziness. She states that she woke up and walked to the bathroom. She became lightheaded and sat down on the floor. She denied any loss of consciousness or head injury. She was able to stand immediately afterwards. Family member heard the fall and called EMS. The patient was evaluated in the emergency room where a CAT scan of the head was performed and was negative for acute pathology. She was noted to have pyuria. Her course was complicated by temperature to 100.2. Patient describes urinary tract symptoms dating back approximately 1 week prior to admission. She states that she experienced dysuria, urinary frequency and urgency. She did not seek immediate medical attention. After approximately 1 week she had presented to her primary provider and was prescribed Macrobid. Patient reports taking 1 dose prior to presenting to the emergency room. She denied any fever at home or shaking chills. No complaints of chest pain, shortness of breath, cough, or sputum production. No vomiting or diarrhea. PAST MEDICAL HISTORY: Positive for hypertension, hyperlipidemia. Recently diagnosed with influenza (April 04, 2018), receiving a course of Tamiflu. ALLERGIES: CODEINE. MEDICATIONS: Include Norvasc, Bystolic, Zofran. SOCIAL HISTORY: She resides at home in the community. Nonsmoker, nondrinker. No recent hospitalizations. REVIEW OF SYSTEMS: Neurologic: As per HPI. Cardiac: Negative chest pain or palpitations. Respiratory: Negative cough or sputum production. Gastrointestinal: Negative vomiting or diarrhea. Genitourinary: As per HPI. LABORATORY DATA: White count 12.5, 92 neutrophils, 3 lymphocytes, 4 monocytes. Hematocrit 35.7, platelet count 198. BUN 11, creatinine 0.6. Urinalysis: White cells 46. Blood and urine cultures are pending. Rapid influenza swab negative. CAT scan of the chest negative for acute infiltrate. PHYSICAL EXAMINATION: General: She is anxious, but not acutely toxic appearing. She is seated in bed. Breathing is nonlabored. Vital Signs: Temperature 100.2. Blood pressure 138/52, pulse 80, regular. Respirations 20 per minute. HEENT: Sclerae are anicteric. Cardiovascular: Heart sounds S1, S2. Lungs: Clear. Abdomen: Soft. No tenderness elicited. No suprapubic or flank tenderness. Extremities: Negative for edema. IMPRESSION: 1. Urinary tract infection/possible sepsis secondary to urinary tract infection. 2. Status post near-syncope. Await sepsis workup. Empiric antibiotic coverage with ceftriaxone 2 g IV piggyback daily. Further recommendations pending cultures. Will follow. Thank you for the kind referral. CARMELA SIMMS M.D. [id number]
--- NOTE | 2018-04-27 16:20 | PN ---
Progress Note, Physician History of Present Illness: AWAKE AND ALERT APPEARS MORE COMFORTABLE NO COMPALINTS DENIES DYSURIA NO FEVER/CHILLS - Current Medication List Current Medications: Active Medications Acetaminophen (Tylenol -) 650 mg PO Q4H PRN PRN Reason: PAIN LEVEL 1-5 Last Admin: 04/26/18 17:13 Dose: 650 mg Amlodipine Besylate (Norvasc -) 2.5 mg PO DAILY [facility] Last Admin: 04/27/18 12:36 Dose: 2.5 mg Heparin Sodium (Porcine) (Heparin -) 5,000 unit SQ BID [facility] Last Admin: 04/27/18 09:51 Dose: 5,000 unit Ceftriaxone Sodium 2 gm/ (Dextrose) 100 mls @ 100 mls/hr IVPB DAILY [facility]; Protocol Last Admin: 04/27/18 09:51 Dose: 100 mls/hr Nebivolol (Bystolic -) 5 mg PO HS [facility] - Objective Vital Signs: Vital Signs Temperature 99.1 F 04/27/18 03:00 Pulse Rate 66 04/27/18 03:00 Respiratory Rate 20 04/27/18 04:00 Blood Pressure 124/58 L 04/27/18 03:00 O2 Sat by Pulse Oximetry (%) 97 04/27/18 04:00 Constitutional: Yes: No Distress Cardiovascular: Yes: Regular Rate and Rhythm, S1, S2 Respiratory: Yes: CTA Bilaterally Gastrointestinal: Yes: Normal Bowel Sounds Edema: No Labs: CBC, BMP 04/27/18 06:00 04/27/18 06:00 Assessment/Plan UTI R/O SEPSIS SECONDARY TO UTI FEVER/ LEUKOCYTOSIS IMPROVED AWAIT C/S CONTINUE EMPIRIC CEFTRIAXONE
--- NOTE | 2018-04-27 17:13 | EKG ---
Test Reason : Blood Pressure : / mmHG Vent. Rate : 071 BPM Atrial Rate : 071 BPM P-R Int : 164 ms QRS Dur : 094 ms QT Int : 422 ms P-R-T Axes : 046 001 026 degrees QTc Int : 458 ms NORMAL SINUS RHYTHM NORMAL ECG WHEN COMPARED WITH ECG OF 23-JUN-2017 20:23, NO SIGNIFICANT CHANGE WAS FOUND Confirmed by ALEJANDRO SÁNCHEZ MD ([id number]) on 04/27/2018 5:12:55 PM Referred By: Confirmed By:ALEJANDRO SÁNCHEZ MD
[2018-04-28 07:30] LABS: BASO % 0.5 % (0-2.0); EOS % 8.2 % (0-4.5); HEMATOCRIT 34.2 % (32.4-45.2); HEMOGLOBIN 11.9 GM/dL (10.7-15.3); LYMPH % 18.2 % (8-40); MCH 32.6 pg (25.7-33.7); MCHC 34.9 g/dl (32.0-36.0); MEAN CELL VOLUME 93.6 fl (80-96); MONO % 12.4 % (3.8-10.2); NEUT % 60.7 % (42.8-82.8); PLATELET COUNT 183 K/MM3 (134-434); RBC 3.65 M/mm3 (3.60-5.2); RDW 13.9 % (11.6-15.6); WHITE BLOOD COUNT 5.7 K/mm3 (4.0-10.0)
[2018-04-28 07:51] LABS: ALBUMIN 2.8 g/dl (3.4-5.0); ALK PHOS 49 U/L (45-117); ANION GAP 5 MMOL/L (8-16); BILIRUBIN,TOTAL 0.2 mg/dL (0.2-1); BLOOD UREA NITROGEN 16 mg/dL (7-18); CALCIUM 8.3 mg/dL (8.5-10.1); CHLORIDE 102 mmol/L (98-107); CO2 27 mmol/L (21-32); CREATININE 0.6 mg/dL (0.55-1.3); GLUCOSE,RANDOM 87 mg/dL (74-106); SGOT/AST 25 U/L (15-37); SGPT/ALT 24 U/L (13-61); SODIUM 134 mmol/L (136-145); TOT PROT 6.3 g/dl (6.4-8.2)
[2018-04-28] MEDS ORDERED: DEXTROSE 5%-WATER 100 ML IVPB ONE (10:28)
[2018-04-28] MEDS: amLODIPine BESYLATE 2.5 MG TABLET (FP) PO SCH (10:37)
[2018-04-28] MEDS: HEPARIN NA (PORCINE) 5,000 UNITS/ML 1ML VIAL SQ SCH ×2 (10:38→22:26)
[2018-04-28] MEDS: CEFTRIAXONE 2 GM in DEXTROSE 5%-WATER 100 ML IVPB SCH (10:38)
--- NOTE | 2018-04-28 11:52 | PN ---
Progress Note (short form) - Note Progress Note: PULMONARY SUBJECTIVE IMPROVEMENT LOW GRADE TEMP ANICTERIC BIBASILAR INSP CRACKLES CHRONIC S1S2 BS+ NO EDEMA LABS/MEDS/IMAGES/NOTES REVIEWED (1) Anxiety Code(s): F41.9 - ANXIETY DISORDER, UNSPECIFIED (2) COPD (chronic obstructive pulmonary disease) Code(s): J44.9 - CHRONIC OBSTRUCTIVE PULMONARY DISEASE, UNSPECIFIED (3) Syncope Code(s): R55 - SYNCOPE AND COLLAPSE Qualifiers: Encounter type: initial encounter (4) Unwitnessed fall Code(s): R29.6 - REPEATED FALLS (5) Fever Code(s): R50.9 - FEVER, UNSPECIFIED Qualifiers: Fever type: unspecified Qualified Code(s): R50.9 - Fever, unspecified (6) Urinary tract infection Code(s): N39.0 - URINARY TRACT INFECTION, SITE NOT SPECIFIED Qualifiers: Encounter type: subsequent encounter NO EVIDENCE TO SUPPORT SUPERIMPOSED PNEUMONIA UPON COPD WOULD TREAT FOR UTI AND VOLUME DEPLETION CORRECT LYTES REMAINS COMFORTABLE FROM A PULMONARY STANDPOINT Jozef MONZON MD Problem List - Problems (1) Anxiety Code(s): F41.9 - ANXIETY DISORDER, UNSPECIFIED (2) COPD (chronic obstructive pulmonary disease) Code(s): J44.9 - CHRONIC OBSTRUCTIVE PULMONARY DISEASE, UNSPECIFIED (3) Syncope Code(s): R55 - SYNCOPE AND COLLAPSE Qualifiers: Encounter type: initial encounter (4) Unwitnessed fall Code(s): R29.6 - REPEATED FALLS (5) Fever Code(s): R50.9 - FEVER, UNSPECIFIED Qualifiers: Fever type: unspecified Qualified Code(s): R50.9 - Fever, unspecified (6) Urinary tract infection Code(s): N39.0 - URINARY TRACT INFECTION, SITE NOT SPECIFIED Qualifiers: Encounter type: subsequent encounter
--- NOTE | 2018-04-28 13:33 | PN ---
Progress Note (short form) - Note Progress Note: better comfortable mood better afebrile u/c contaminant Vital Signs Temp 98 F 04/28/18 10:00 Pulse 67 04/28/18 10:00 Resp 18 04/28/18 10:00 BP 136/60 04/28/18 10:00 Pulse Ox 99 04/28/18 12:00 Intake & Output 04/27/18 04/28/18 04/28/18 23:59 11:59 23:59 Intake Total 600 200 Balance 600 200 Intake: Oral 600 200 Other: Voiding Method Toilet Toilet Toilet Active Medications Acetaminophen (Tylenol -) 650 mg PO Q4H PRN PRN Reason: PAIN LEVEL 1-5 Last Admin: 04/26/18 17:13 Dose: 650 mg Amlodipine Besylate (Norvasc -) 2.5 mg PO DAILY [facility] Last Admin: 04/28/18 10:37 Dose: 2.5 mg Heparin Sodium (Porcine) (Heparin -) 5,000 unit SQ BID [facility] Last Admin: 04/28/18 10:38 Dose: 5,000 unit Ceftriaxone Sodium 2 gm/ (Dextrose) 100 mls @ 100 mls/hr IVPB DAILY [facility]; Protocol Last Admin: 04/28/18 10:38 Dose: 100 mls/hr Nebivolol (Bystolic -) 5 mg PO HS [facility] Last Admin: 04/27/18 22:26 Dose: 5 mg CBC, BMP 04/28/18 06:00 04/28/18 06:00 Microbiology 04/26/18 09:16 Urine Culture - Final Urine - Urine Clean Catch Contaminated: Please Repeat 04/26/18 18:30 Blood Culture - Preliminary Blood - Peripheral Venous NO GROWTH OBTAINED AFTER 24 HOURS, INCUBATION TO CONTINUE FOR 4 DAYS. 04/26/18 16:45 Blood Culture - Preliminary Blood - Peripheral Venous NO GROWTH OBTAINED AFTER 24 HOURS, INCUBATION TO CONTINUE FOR 4 DAYS. Physical Examination Constitutional: Yes: No Distress, comfortable Eyes: Yes: WNL, Conjunctiva Clear HENT: Yes: WNL Neck: Yes: Supple, Trachea Midline Cardiovascular: Yes: Regular Rate and Rhythm Respiratory: Yes: CTA Bilaterally Gastrointestinal: Yes: Normal Bowel Sounds, Soft Edema: No Neurological: Yes: WNL, Alert, Cran Nerves II-XII Intact Psychiatric: Yes: Calm today Imaging - Results Chest X-ray: Report Reviewed Cat Scan: Report Reviewed EKG: Report Reviewed Assessment/Plan Discussed Monitor abx per i/d f/u cultures will follow. oob - chair if stable consider d/c in am Problem List - Problems (1) Syncope Code(s): R55 - SYNCOPE AND COLLAPSE Qualifiers: Encounter type: initial encounter (2) Anxiety Code(s): F41.9 - ANXIETY DISORDER, UNSPECIFIED (3) Unwitnessed fall Code(s): R29.6 - REPEATED FALLS (4) Hypertension Code(s): I10 - ESSENTIAL (PRIMARY) HYPERTENSION (5) Hyponatremia Code(s): E87.1 - HYPO-OSMOLALITY AND HYPONATREMIA (6) Urinary tract infection Code(s): N39.0 - URINARY TRACT INFECTION, SITE NOT SPECIFIED Qualifiers: Encounter type: subsequent encounter (7) COPD (chronic obstructive pulmonary disease) Code(s): J44.9 - CHRONIC OBSTRUCTIVE PULMONARY DISEASE, UNSPECIFIED
--- NOTE | 2018-04-28 13:48 | PN ---
Progress Note, Physician History of Present Illness: AWAKE AND ALERT APPEARS MORE COMFORTABLE NO COMPALINTS DENIES DYSURIA NO FEVER/CHILLS - Current Medication List Current Medications: Active Medications Acetaminophen (Tylenol -) 650 mg PO Q4H PRN PRN Reason: PAIN LEVEL 1-5 Last Admin: 04/26/18 17:13 Dose: 650 mg Amlodipine Besylate (Norvasc -) 2.5 mg PO DAILY [facility] Last Admin: 04/28/18 10:37 Dose: 2.5 mg Heparin Sodium (Porcine) (Heparin -) 5,000 unit SQ BID [facility] Last Admin: 04/28/18 10:38 Dose: 5,000 unit Ceftriaxone Sodium 2 gm/ (Dextrose) 100 mls @ 100 mls/hr IVPB DAILY [facility]; Protocol Last Admin: 04/28/18 10:38 Dose: 100 mls/hr Nebivolol (Bystolic -) 5 mg PO HS [facility] Last Admin: 04/27/18 22:26 Dose: 5 mg - Objective Vital Signs: Vital Signs Temperature 98 F 04/28/18 10:00 Pulse Rate 67 04/28/18 10:00 Respiratory Rate 18 04/28/18 10:00 Blood Pressure 136/60 04/28/18 10:00 O2 Sat by Pulse Oximetry (%) 99 04/28/18 12:00 Constitutional: Yes: No Distress Cardiovascular: Yes: Regular Rate and Rhythm, S1, S2 Respiratory: Yes: CTA Bilaterally Gastrointestinal: Yes: Normal Bowel Sounds, Soft. No: Tenderness Edema: No Labs: CBC, BMP 04/28/18 06:00 04/28/18 06:00 Assessment/Plan UTI R/O SEPSIS SECONDARY TO UTI FEVER/ LEUKOCYTOSIS IMPROVED CONTINUE EMPIRIC CEFTRIAXONE
[2018-04-28] MEDS: NEBIVOLOL 5 MG TABLET (FP) PO SCH (22:26)
[2018-04-29] MEDS ORDERED: DEXTROSE 5%-WATER 100 ML IVPB ONE (09:42)
[2018-04-29] MEDS: CEFTRIAXONE 2 GM in DEXTROSE 5%-WATER 100 ML IVPB SCH (09:45)
[2018-04-29] MEDS: HEPARIN NA (PORCINE) 5,000 UNITS/ML 1ML VIAL SQ SCH (09:46)
[2018-04-29] MEDS: amLODIPine BESYLATE 2.5 MG TABLET (FP) PO SCH (09:46)
--- NOTE | 2018-04-29 10:17 | DS ---
Physical Examination Vital Signs: Vital Signs Temperature 97.9 F 04/29/18 09:32 Pulse Rate 73 04/29/18 09:32 Respiratory Rate 18 04/29/18 09:32 Blood Pressure 137/68 04/29/18 09:32 O2 Sat by Pulse Oximetry (%) 98 04/28/18 20:00 Findings/Remarks: feels well mood is stable No complaints today afebrile Constitutional: Yes: No Distress Eyes: Yes: Conjunctiva Clear Neck: Yes: Supple Cardiovascular: Yes: Regular Rate and Rhythm Respiratory: Yes: CTA Bilaterally Gastrointestinal: Yes: Soft Edema: No Neurological: Yes: Alert Psychiatric: Yes: Alert Labs: CBC, BMP 04/28/18 06:00 04/28/18 06:00 Discharge Summary Reason For Visit: UNWITNESSED FALL Current Active Problems Anxiety (Acute) COPD (chronic obstructive pulmonary disease) (Acute) Hyperlipidemia (Acute) Near syncope (Acute) PSVT (paroxysmal supraventricular tachycardia) (Acute) Syncope (Acute) Unwitnessed fall (Acute) Hospital Course: admitted for fall Workup essentially negative Treated for UTI Urine culture negative I had done an office culture one day before----Escherichia coli----sensitive to Levaquin Discussed with ID We will send for 1 week antibiotics Otherwise stable medications reviewed CAT scan also reviewed and discussed Follow-up in office in 2 weeks - Instructions Disposition: HOME - Home Medications Comprehensive Discharge Medication List: Ambulatory Orders Amlodipine Besylate [Norvasc -] 2.5 mg PO DAILY 04/20/17 Nebivolol [Bystolic -] 5 mg PO HS 04/20/17
[2018-04-29 10:26] LABS: CHOLESTEROL 185 mg/dL (50-200); HDL CHOLESTEROL 46 mg/dL (40-60); TRIGLYCERIDES 123 mg/dL (0-150)
--- NOTE | 2018-04-29 11:11 | PN ---
Progress Note (short form) - Note Progress Note: PULMONARY Denies shortness of breath, cough or wheeze. No fevers or chills. Vital Signs Period Temp Pulse Resp BP Sys/Cantor Pulse Ox Last 24 Hr 97.9 F-98.3 F 62-73 18-18 130-138/58-69 98-99 Gen: NAD at rest Heart: RRR Lung: decreased breath sounds at the bases Abd: soft, nontender Ext: no edema CBC, BMP 04/28/18 06:00 04/28/18 06:00 Active Medications Acetaminophen (Tylenol -) 650 mg PO Q4H PRN PRN Reason: PAIN LEVEL 1-5 Last Admin: 04/26/18 17:13 Dose: 650 mg Amlodipine Besylate (Norvasc -) 2.5 mg PO DAILY [facility] Last Admin: 04/29/18 09:46 Dose: 2.5 mg Heparin Sodium (Porcine) (Heparin -) 5,000 unit SQ BID [facility] Last Admin: 04/29/18 09:46 Dose: 5,000 unit Ceftriaxone Sodium 2 gm/ (Dextrose) 100 mls @ 100 mls/hr IVPB DAILY [facility]; Protocol Last Admin: 04/29/18 09:45 Dose: 100 mls/hr Nebivolol (Bystolic -) 5 mg PO HS [facility] Last Admin: 04/28/18 22:26 Dose: 5 mg A/P UTI COPD HTN h/o PSVT - complete antibiotics - ambulate - inhaled bronchodilators as needed - DVT prophylaxis - agree with d/c planning
[2018-04-29 14:30] VITALS: BP 144/66; PULSE 68; TEMP 98.1
== END 2018-04-29 15:18 | disposition home or self-care (01) ==
LOC: JER 06:59 → JERBED 10:18 → J7W 12:47
PROVIDERS: ADMIT Internal Medicine; ATTEND Internal Medicine
PROC: 3E03329 Introduction of Other Anti-infective into Peripheral Vein, Percutaneous Approach (ICD-10-PCS; principal; 2018-04-26)
PROC: 3E0337Z Introduction of Electrolytic and Water Balance Substance into Peripheral Vein, Percutaneous Approach (ICD-10-PCS; 2018-04-26)
PROC: 3E013GC Introduction of Other Therapeutic Substance into Subcutaneous Tissue, Percutaneous Approach (ICD-10-PCS; 2018-04-26)
DX: Z04.3 Encounter for examination and observation following other accident (principal); N39.0 Urinary tract infection, site not specified; R55 Syncope and collapse; F41.9 Anxiety disorder, unspecified; I10 Essential (primary) hypertension; E78.5 Hyperlipidemia, unspecified; J44.9 Chronic obstructive pulmonary disease, unspecified; R50.9 Fever, unspecified; E87.1 Hypo-osmolality and hyponatremia; I47.1 Supraventricular tachycardia; W18.39XA Other fall on same level, initial encounter; Z91.81 History of falling; Y93.89 Activity, other specified; Y92.002 Bathroom of unspecified non-institutional (private) residence as the place of occurrence of the external cause
CPT/HCPCS: 36415; 70450-TC; 71045-TC-FY; 71250-TC; 80053; 80061; 81003; 82550; 82962; 83721; 83735; 84100; 84443; 84484; 85025; 87040; 87086; 87804; 93005; 93010; 93306-TC; 96365; 96367; 96372; 96375; 99284-25; G0378; J1644

== ENCOUNTER 2020-08-21 00:41 | Emergency (ER) | payer OTHER, MEDICARE ==
[2020-08-21 01:13] VITALS: BMI 21.3
[2020-08-21] MEDS ORDERED: DIPHTH,PERTUSS(ACELL),TET 0.5 ML DISP.SYRIN IM ONE ×2 (02:18→04:23)
[2020-08-21 04:42] VITALS: BP 157/55; PULSE 76
== END 2020-08-21 06:04 | disposition home or self-care (01) ==
LOC: JER 00:41
PROC: 3E0234Z Introduction of Serum, Toxoid and Vaccine into Muscle, Percutaneous Approach (ICD-10-PCS; principal; 2020-08-21)
DX: S05.11XA Contusion of eyeball and orbital tissues, right eye, initial encounter (principal)
CPT/HCPCS: 70450-TC; 70486-TC; 72125-TC; 90471; 90715; 99285-25

== ENCOUNTER 2023-09-15 17:20 | Inpatient (IN) | payer OTHER, MEDICARE ==
[2023-09-15] MEDS ORDERED: methylPREDNISolone NA SUCC 125 MG/2 ML VIAL ONE (18:04)
[2023-09-15] MEDS ORDERED: ALBUTEROL SO4 2.5/IPRATROPIUM 0.5 INH SOL 3 ML VIAL.NEB. NEB ONE (18:21)
[2023-09-15] MEDS: methylPREDNISolone NA SUCC 125 MG/2 ML VIAL IVPUSH ONE (18:24)
[2023-09-15] MEDS: ALBUTEROL SO4 2.5/IPRATROPIUM 0.5 INH SOL 3 ML VIAL.NEB. NEB SCH (18:24)
[2023-09-15 18:27] LABS: HEMATOCRIT 33.9 % (32.4-45.2); HEMOGLOBIN 11.4 GM/dL (10.7-15.3); MCHC 33.7 g/dl (32.0-36.0); MEAN CELL VOLUME 97.9 fl (80-96); MEAN PLT VOLUME 8.5 fl (7.5-11.1); PLATELET COUNT 451 10^3/uL (134-434); RBC 3.46 M/mm3 (3.60-5.2); RDW 15.1 % (11.6-15.6); WHITE BLOOD COUNT 15.4 K/mm3 (4.0-10.0)
[2023-09-15 18:33] LABS: VENOUS BASE EXCESS -6.2 mmol/L (-2-2); VENOUS O2 SATURATION 72.1 % (70-80); VENOUS PCO2 37.5 mmHg (38-52); VENOUS PH 7.327 (7.310-7.410)
[2023-09-15 18:46] LABS: INR 1.68 (0.83-1.09); PROTHROMBIN TIME (PATIENT) 18.7 SEC (9.7-13.0)
[2023-09-15 18:48] LABS: ACTIVATED PTT 37.3 SECONDS (25.2-36.5)
[2023-09-15 18:51] LABS: POTASSIUM 5.6 mmol/L (3.5-5.1)
[2023-09-15 18:53] LABS: CALCIUM 8.9 mg/dL (8.5-10.1)
[2023-09-15 18:54] LABS: ALBUMIN 2.6 g/dl (3.4-5.0); BLOOD UREA NITROGEN 66.4 mg/dL (7-18)
[2023-09-15 18:57] LABS: CREATININE 1.3 mg/dL (0.55-1.3)
[2023-09-15 18:59] LABS: BILIRUBIN,TOTAL 1.4 mg/dL (0.2-1); TOT PROT 6.7 g/dl (6.4-8.2)
[2023-09-15 19:02] LABS: N-TERMINAL BNP 7385.5 pg/ml (5-450)
[2023-09-15 19:18] LABS: LACTIC ACID 2.9 mmol/L (0.4-2.0)
[2023-09-15] MEDS ORDERED: ROCURONIUM BROMIDE 50 MG/5 ML SYRINGE ONE (19:22)
[2023-09-15] MEDS ORDERED: ETOMIDATE 20 MG/10 ML VIAL IVPUSH ONE (19:22)
[2023-09-15] MEDS ORDERED: VANCOMYCIN 1 GRAM (PRE-DOCKED) 1,000 MG/250 ML BAG IVPB ONE (19:29)
[2023-09-15] MEDS ORDERED: FUROSEMIDE 40 MG/4 ML INJECTABLE VIAL ONE (19:29)
[2023-09-15] MEDS ORDERED: PIPERACILLIN/TAZOB 3.375 GM 3.375 GM/50 ML BAG IVPB ONE ×2 (19:30→19:43)
[2023-09-15 19:34] LABS: ANISOCYTOSIS 1+; MACROCYTOSIS 0; OVALOCYTE 1+
[2023-09-15] MEDS: PIPERACILLIN/TAZOB 3.375 GM 3.375 GM in DEXTROSE 5%-WATER - 50 ML IVPB ONE (19:41)
[2023-09-15] MEDS: FUROSEMIDE 40 MG/4 ML INJECTABLE VIAL IVPUSH ONE (19:42)
[2023-09-15] MEDS: VANCOMYCIN 1,000 MG in DEXTROSE 5%-WATER - 250 ML IVPB ONE (20:13)
[2023-09-15 20:51] LABS: ARTERIAL BLD GAS O2 SATURATION 94.4 % (95-98); ARTERIAL BLOOD GAS BASE EXCESS -6.1 mmol/L (-2-2)
[2023-09-15 20:55] LABS: ALLENS TEST POSITIVE
[2023-09-15 20:56] LABS: VENT RATE 14
[2023-09-15 21:23] LABS: HEMATOCRIT 32.4 % (32.4-45.2); HEMOGLOBIN 10.8 GM/dL (10.7-15.3); MCH 32.8 pg (25.7-33.7); MCHC 33.3 g/dl (32.0-36.0); MEAN CELL VOLUME 98.4 fl (80-96); MEAN PLT VOLUME 7.6 fl (7.5-11.1); PLATELET COUNT 405 10^3/uL (134-434); RBC 3.29 M/mm3 (3.60-5.2); RDW 14.7 % (11.6-15.6); WHITE BLOOD COUNT 15.7 K/mm3 (4.0-10.0)
[2023-09-15 22:18] LABS: ANISOCYTOSIS 0; MACROCYTOSIS 0
[2023-09-15] MEDS ORDERED: DEXMEDETOMIDINE PREMIX 400 MCG/100 ML BAG IVPB ONE (22:21)
[2023-09-15] MEDS: AZITHROMYCIN IVPB 500 MG/250 ML BAG IVPB SCH (23:07)
[2023-09-15] MEDS: MUPIROCIN 2% TOPICAL OINTMENT FOR DECOLONIZATION NS SCH (23:07)
[2023-09-15] MEDS: HEPARIN NA (PORCINE) 5,000 UNITS/ML 1ML VIAL SQ SCH (23:08)
[2023-09-15] MEDS: CHLORHEXIDINE GLUCONATE 4% CLEANSER FOR DECOLONIZATION TP SCH (23:08)
[2023-09-15] MEDS: DEXMEDETOMIDINE PREMIX 400 MCG/100 ML BAG IVPB SCH (23:08)
[2023-09-16 00:04] LABS: CHLORIDE 107 mmol/L (98-107); SODIUM 137 mmol/L (136-145)
[2023-09-16 00:06] LABS: CALCIUM 8.4 mg/dL (8.5-10.1)
[2023-09-16 00:07] LABS: ALBUMIN 2.3 g/dl (3.4-5.0); BLOOD UREA NITROGEN 70.1 mg/dL (7-18); CO2 19 mmol/L (21-32); GLUCOSE,RANDOM 158 mg/dL (74-106)
[2023-09-16 00:10] LABS: CREATININE 1.4 mg/dL (0.55-1.3); SGOT/AST 467 U/L (15-37)
[2023-09-16 00:11] LABS: BILIRUBIN,TOTAL 1.5 mg/dL (0.2-1)
[2023-09-16 00:12] LABS: TOT PROT 7.1 g/dl (6.4-8.2)
[2023-09-16 00:13] LABS: ALK PHOS 102 U/L (45-117)
[2023-09-16 00:18] LABS: ANION GAP 11 mmol/L (4-13); POTASSIUM 8.3 mmol/L (3.5-5.1); SGPT/ALT 210 U/L (13-61)
[2023-09-16] MEDS: ENOXAPARIN NA (PORCINE) 60 MG/0.6 ML DISP.SYRIN SQ SCH (00:33)
[2023-09-16 01:18] LABS: POTASSIUM 4.5 mmol/L (3.5-5.1)
[2023-09-16 01:20] LABS: ALBUMIN 2.3 g/dl (3.4-5.0); CALCIUM 8.1 mg/dL (8.5-10.1)
[2023-09-16 01:22] LABS: BLOOD UREA NITROGEN 68.3 mg/dL (7-18)
[2023-09-16 01:24] LABS: CREATININE 1.4 mg/dL (0.55-1.3)
[2023-09-16] MEDS: HYDROCORTISONE SOD SUCCINATE 100 MG/2 ML VIAL IVPUSH SCH (02:47)
[2023-09-16] MEDS: PIPERACILLIN/TAZOB 2.25 GM 2.25 GM in DEXTROSE 5%-WATER - 50 ML IVPB SCH (02:48)
[2023-09-16] MEDS ORDERED: PIPERACILLIN/TAZOB 2.25 GM 2.25 GM in DEXTROSE 5%-WATER - 50 ML IVPB SCH (03:00)
[2023-09-16 08:03] LABS: INR 1.55 (0.83-1.09); PROTHROMBIN TIME (PATIENT) 17.6 SEC (9.7-13.0)
[2023-09-16 08:04] LABS: BASO % 0.1 % (0-2.0); EOS % 0.1 % (0-4.5); HEMATOCRIT 32.1 % (32.4-45.2); LYMPH % 3.7 % (8-40); MCH 32.9 pg (25.7-33.7); MCHC 34.3 g/dl (32.0-36.0); MEAN CELL VOLUME 95.9 fl (80-96); MEAN PLT VOLUME 7.8 fl (7.5-11.1); MONO % 3.8 % (3.8-10.2); NEUT % 92.3 % (42.8-82.8); PLATELET COUNT 382 10^3/uL (134-434); RBC 3.34 M/mm3 (3.60-5.2); RDW 14.8 % (11.6-15.6); WHITE BLOOD COUNT 13.8 K/mm3 (4.0-10.0)
[2023-09-16 08:06] LABS: ACTIVATED PTT 35.9 SECONDS (25.2-36.5)
[2023-09-16 08:10] LABS: POTASSIUM 4.4 mmol/L (3.5-5.1)
[2023-09-16 08:25] LABS: MAGNESIUM 2.7 mg/dL (1.8-2.4)
[2023-09-16 08:26] LABS: CREATININE 1.2 mg/dL (0.55-1.3)
[2023-09-16 08:27] LABS: TOT PROT 5.8 g/dl (6.4-8.2)
[2023-09-16 08:29] LABS: ALBUMIN 2.3 g/dl (3.4-5.0); BLOOD UREA NITROGEN 68.5 mg/dL (7-18); CALCIUM 8.5 mg/dL (8.5-10.1)
[2023-09-16 08:30] LABS: PHOSPHOROUS 6.4 mg/dL (2.5-4.9)
[2023-09-16 08:32] LABS: BILIRUBIN,TOTAL 0.9 mg/dL (0.2-1)
[2023-09-16 08:59] LABS: ANISOCYTOSIS 0; MACROCYTOSIS 0; OVALOCYTE 1+
[2023-09-16] MEDS: PANTOPRAZOLE SODIUM 40 MG VIAL IVPUSH SCH (09:54)
[2023-09-16] MEDS ORDERED: NOREPINEPHRINE BITARTRATE 4 MG/4 ML ML IV ONE (14:40)
[2023-09-16] MEDS ORDERED: FENTANYL NS IVPB 500 MCG/100 ML BAG IVPB ONE (14:41)
[2023-09-16] MEDS ORDERED: PROPOFOL 1,000,000 MCG/100 ML VIAL ONE (14:41)
[2023-09-16] MEDS: ETOMIDATE 20 MG/10 ML VIAL IVPUSH ONE (15:00)
[2023-09-16] MEDS: FENTANYL CITRATE/PF 50 MCG/ML VIAL IVPUSH ONE (15:00)
[2023-09-16] MEDS: PROPOFOL 1,000,000 MCG/100 ML VIAL IVPB SCH (15:01)
[2023-09-16] MEDS: ROCURONIUM BROMIDE 50 MG/5 ML VIAL IVPUSH ONE (15:01)
[2023-09-16] MEDS: FENTANYL NS IVPB 500 MCG/100 ML BAG IVPB SCH (15:33)
[2023-09-16 15:53] LABS: ARTERIAL BLD GAS O2 SATURATION 92.6 % (95-98); ARTERIAL BLOOD GAS PO2 64.3 mmHg (80-100); ARTERIAL BLOOD GAS pH 7.394 (7.350-7.450)
[2023-09-16 15:54] LABS: ALLENS TEST POSITIVE
[2023-09-16 15:57] LABS: VENT RATE 28
[2023-09-16] MEDS: DEXTROSE 5%-WATER - 1,000 ML IV SCH (18:02)
[2023-09-16] MEDS: PIPERACILLIN/TAZOB 3.375 GM 3.375 GM in DEXTROSE 5%-WATER - 50 ML IVPB SCH (18:54)
[2023-09-17] MEDS: NOREPINEPHRINE BITARTRATE 4,000 MCG in DEXTROSE 5%-WATER - 496 ML IV SCH (00:06)
[2023-09-17 05:51] LABS: ARTERIAL BLD GAS O2 SATURATION 87.9 % (95-98); ARTERIAL BLOOD GAS BASE EXCESS -4.1 mmol/L (-2-2); ARTERIAL BLOOD GAS PO2 51.5 mmHg (80-100); ARTERIAL BLOOD GAS pH 7.425 (7.350-7.450)
[2023-09-17 06:02] LABS: ALLENS TEST POSITIVE
[2023-09-17 06:03] LABS: VENT MODE A/C; VENT RATE 28
[2023-09-17 07:17] LABS: HEMATOCRIT 30.8 % (32.4-45.2); HEMOGLOBIN 10.5 GM/dL (10.7-15.3); MCH 32.7 pg (25.7-33.7); MEAN CELL VOLUME 96.1 fl (80-96); MEAN PLT VOLUME 7.9 fl (7.5-11.1); PLATELET COUNT 395 10^3/uL (134-434); RBC 3.21 M/mm3 (3.60-5.2)
[2023-09-17 07:43] LABS: POTASSIUM 4.4 mmol/L (3.5-5.1)
[2023-09-17 07:47] LABS: CALCIUM 8.1 mg/dL (8.5-10.1)
[2023-09-17 07:48] LABS: ALBUMIN 2.2 g/dl (3.4-5.0); BLOOD UREA NITROGEN 70.6 mg/dL (7-18); MAGNESIUM 2.9 mg/dL (1.8-2.4)
[2023-09-17 07:51] LABS: CREATININE 1.7 mg/dL (0.55-1.3); PHOSPHOROUS 5.4 mg/dL (2.5-4.9)
[2023-09-17 07:52] LABS: BILIRUBIN,TOTAL 0.7 mg/dL (0.2-1)
[2023-09-17 10:15] LABS: ANISOCYTOSIS 0; HELMET CELLS 0; HOWELL-JOLLY BODIES 0; MACROCYTOSIS 0; OVALOCYTE 0; ROULEAU 0; SICKELED CELLS 0; TARGET CELLS 0; TEAR DROP CELLS 0; TOXIC GRANULATION 0
[2023-09-17] MEDS: SODIUM CHLORIDE 1,000 ML IV SCH (12:17)
[2023-09-17] MEDS: ALBUTEROL SO4 2.5/IPRATROPIUM 0.5 INH SOL 3 ML VIAL.NEB. NEB ONE (12:19)
[2023-09-17 16:36] LABS: EPI CELLS 23 /uL (0-25.1); HYALINE CASTS 5 /uL (0-3.1); PH,URINE 5.5 (5.0-8.0); URINE APPEARANCE CLOUDY; URINE BACTERIA 15 /uL (0-1359); URINE BILIRUBIN NEGATIVE (NEGATIVE); URINE COLOR YELLOW; URINE GLUCOSE (UA) NEGATIVE (NEGATIVE); URINE KETONE NEGATIVE (NEGATIVE); URINE LEUK ESTERASE TRACE (NEGATIVE); URINE NITRITE NEGATIVE (NEGATIVE); URINE PROTEIN 1+ (NEGATIVE); URINE RBC 102 /uL (0-23.9); URINE UROBILINOGEN 0.2 mg/dL (0.2-1.0); URINE WBC 85 /uL (0-25.8)
[2023-09-18 07:25] LABS: HEMATOCRIT 32.8 % (32.4-45.2); HEMOGLOBIN 10.8 GM/dL (10.7-15.3); MCH 32.1 pg (25.7-33.7); MCHC 32.8 g/dl (32.0-36.0); MEAN CELL VOLUME 97.8 fl (80-96); MEAN PLT VOLUME 8.2 fl (7.5-11.1); PLATELET COUNT 340 10^3/uL (134-434); RBC 3.36 M/mm3 (3.60-5.2); RDW 15.2 % (11.6-15.6); WHITE BLOOD COUNT 15.2 K/mm3 (4.0-10.0)
[2023-09-18 07:26] LABS: INR 1.32 (0.83-1.09); PROTHROMBIN TIME (PATIENT) 14.8 SEC (9.7-13.0)
[2023-09-18 07:40] LABS: POTASSIUM 3.8 mmol/L (3.5-5.1)
[2023-09-18 07:45] LABS: CALCIUM 8.1 mg/dL (8.5-10.1)
[2023-09-18 07:47] LABS: PHOSPHOROUS 3.3 mg/dL (2.5-4.9)
[2023-09-18 07:49] LABS: BILIRUBIN,TOTAL 0.6 mg/dL (0.2-1); CREATININE 1.1 mg/dL (0.55-1.3); TOT PROT 5.8 g/dl (6.4-8.2)
[2023-09-18 08:01] LABS: LACTIC ACID 2.2 mmol/L (0.4-2.0)
[2023-09-18 09:16] LABS: ANISOCYTOSIS 0; MACROCYTOSIS 0
[2023-09-18 09:19] LABS: PLATELET ESTIMATE ADEQUATE
[2023-09-18 10:08] LABS: ARTERIAL BLD GAS O2 SATURATION 99.1 % (95-98); ARTERIAL BLOOD GAS BASE EXCESS -0.9 mmol/L (-2-2); ARTERIAL BLOOD GAS PO2 158.1 mmHg (80-100); ARTERIAL BLOOD GAS pH 7.452 (7.350-7.450)
[2023-09-18 10:16] LABS: ALLENS TEST POSITIVE
[2023-09-19 07:35] LABS: HEMATOCRIT 32.2 % (32.4-45.2); HEMOGLOBIN 10.4 GM/dL (10.7-15.3); MCH 31.8 pg (25.7-33.7); MCHC 32.3 g/dl (32.0-36.0); MEAN CELL VOLUME 98.2 fl (80-96); MEAN PLT VOLUME 8.4 fl (7.5-11.1); PLATELET COUNT 290 10^3/uL (134-434); RBC 3.28 M/mm3 (3.60-5.2); RDW 15.2 % (11.6-15.6); WHITE BLOOD COUNT 13.7 K/mm3 (4.0-10.0)
[2023-09-19 08:00] LABS: ALBUMIN 1.9 g/dl (3.4-5.0); BLOOD UREA NITROGEN 33.2 mg/dL (7-18); MAGNESIUM 2.8 mg/dL (1.8-2.4)
[2023-09-19 08:03] LABS: CREATININE 0.8 mg/dL (0.55-1.3); PHOSPHOROUS 2.4 mg/dL (2.5-4.9)
[2023-09-19 08:04] LABS: BILIRUBIN,TOTAL 0.6 mg/dL (0.2-1)
[2023-09-19 08:05] LABS: TOT PROT 5.5 g/dl (6.4-8.2)
[2023-09-19 08:46] LABS: PLATELET ESTIMATE ADEQUATE
[2023-09-19] MEDS: POTASSIUM PHOSPHATE 15 MM in DEXTROSE 5%-WATER - 100 ML IVPB ONE (10:50)
[2023-09-19] MEDS: DEXTROSE 5%-0.45% SALINE 1,000 ML IV SCH (13:50)
[2023-09-19 15:06] VITALS: BMI 23.3
[2023-09-19] MEDS: HYDROCORTISONE SOD SUCCINATE 100 MG/2 ML VIAL IVPUSH SCH (17:12)
[2023-09-20 06:09] LABS: ARTERIAL BLD GAS O2 SATURATION 93.5 % (95-98); ARTERIAL BLOOD GAS PO2 60.9 mmHg (80-100); ARTERIAL BLOOD GAS pH 7.497 (7.350-7.450)
[2023-09-20 07:08] LABS: HEMATOCRIT 33.1 % (32.4-45.2); HEMOGLOBIN 10.9 GM/dL (10.7-15.3); MCH 31.8 pg (25.7-33.7); MCHC 32.8 g/dl (32.0-36.0); MEAN PLT VOLUME 8.4 fl (7.5-11.1); PLATELET COUNT 302 10^3/uL (134-434); RBC 3.42 M/mm3 (3.60-5.2); RDW 14.9 % (11.6-15.6); WHITE BLOOD COUNT 15.1 K/mm3 (4.0-10.0)
[2023-09-20 07:15] LABS: INR 1.27 (0.83-1.09); PROTHROMBIN TIME (PATIENT) 14.2 SEC (9.7-13.0)
[2023-09-20 07:27] LABS: ALBUMIN 2.1 g/dl (3.4-5.0); CALCIUM 7.9 mg/dL (8.5-10.1)
[2023-09-20 07:28] LABS: BLOOD UREA NITROGEN 33.3 mg/dL (7-18); MAGNESIUM 2.4 mg/dL (1.8-2.4)
[2023-09-20 07:31] LABS: CREATININE 0.8 mg/dL (0.55-1.3); PHOSPHOROUS 2.1 mg/dL (2.5-4.9)
[2023-09-20 07:32] LABS: TOT PROT 5.8 g/dl (6.4-8.2)
[2023-09-20] MEDS: POTASSIUM PHOSPHATE 15 MM in DEXTROSE 5%-WATER - 100 ML IVPB ONE (10:03)
[2023-09-20] MEDS ORDERED: HYDROCORTISONE SOD SUCCINATE 100 MG/2 ML VIAL IVPUSH SCH (11:00)
[2023-09-20] MEDS: HYDROCORTISONE SOD SUCCINATE 100 MG/2 ML VIAL IVPUSH SCH (12:50)
[2023-09-20] MEDS: AMINO ACIDS 4.25%/D5W 1,000 ML IV SCH (12:50)
[2023-09-20] MEDS ORDERED: METOPROLOL TARTRATE 5 MG/5 ML VIAL IVPUSH PRN (17:47)
[2023-09-20] MEDS ORDERED: dilTIAZem HCL 30 MG TABLET PO SCH (18:00)
[2023-09-20] MEDS: METOPROLOL TARTRATE 5 MG/5 ML VIAL IVPUSH PRN (18:10)
[2023-09-20] MEDS: FUROSEMIDE 40 MG/4 ML INJECTABLE VIAL IVPUSH ONE (18:10)
[2023-09-20] MEDS: LABETALOL HCL 5 MG/1 ML (100MG/20 ML VIAL) IVPUSH PRN (20:00)
[2023-09-21 07:48] LABS: HEMATOCRIT 36.7 % (32.4-45.2); MCH 31.4 pg (25.7-33.7); MCHC 32.7 g/dl (32.0-36.0); MEAN CELL VOLUME 96.2 fl (80-96); MEAN PLT VOLUME 8.4 fl (7.5-11.1); PLATELET COUNT 304 10^3/uL (134-434); RBC 3.82 M/mm3 (3.60-5.2); RDW 15.1 % (11.6-15.6); WHITE BLOOD COUNT 17.2 K/mm3 (4.0-10.0)
[2023-09-21 08:11] LABS: BLOOD UREA NITROGEN 30.1 mg/dL (7-18); CALCIUM 7.9 mg/dL (8.5-10.1)
[2023-09-21 08:15] LABS: CREATININE 0.7 mg/dL (0.55-1.3); PHOSPHOROUS 2.4 mg/dL (2.5-4.9)
[2023-09-21 08:16] LABS: BILIRUBIN,TOTAL 1.2 mg/dL (0.2-1); TOT PROT 5.7 g/dl (6.4-8.2)
[2023-09-21] MEDS: POTASSIUM PHOSPHATE 15 MM in DEXTROSE 5%-WATER - 100 ML IVPB ONE (09:48)
[2023-09-21] MEDS: KCL 10 MEQ IVPB 10 MEQ/100 ML INFUS.BAG IVPB SCH (16:36)
[2023-09-21] MEDS: dilTIAZem HCL 30 MG TABLET PO SCH (17:48)
[2023-09-21] MEDS: NYSTATIN 500,000 UNITS/5 ML SUSPENSION PO SCH (17:48)
[2023-09-21] MEDS: FUROSEMIDE 40 MG/4 ML INJECTABLE VIAL IVPUSH SCH (18:45)
[2023-09-22] MEDS: PIPERACILLIN/TAZOB 3.375 GM 3.375 GM in DEXTROSE 5%-WATER - 50 ML IVPB SCH (02:18)
[2023-09-22] MEDS: NYSTATIN 500,000 UNITS/5 ML SUSPENSION PO SCH (06:39)
[2023-09-22] MEDS: dilTIAZem HCL 30 MG TABLET PO SCH (06:39)
[2023-09-22 07:21] LABS: HEMATOCRIT 34.3 % (32.4-45.2); HEMOGLOBIN 10.9 GM/dL (10.7-15.3); MCH 30.7 pg (25.7-33.7); MCHC 31.7 g/dl (32.0-36.0); MEAN CELL VOLUME 96.8 fl (80-96); MEAN PLT VOLUME 8.9 fl (7.5-11.1); PLATELET COUNT 277 10^3/uL (134-434); RBC 3.54 M/mm3 (3.60-5.2); WHITE BLOOD COUNT 17.8 K/mm3 (4.0-10.0)
[2023-09-22 08:06] LABS: POTASSIUM 3.5 mmol/L (3.5-5.1)
[2023-09-22 08:14] LABS: ALBUMIN 1.9 g/dl (3.4-5.0); BLOOD UREA NITROGEN 30.2 mg/dL (7-18); CALCIUM 7.8 mg/dL (8.5-10.1)
[2023-09-22 08:17] LABS: CREATININE 0.8 mg/dL (0.55-1.3)
[2023-09-22 08:18] LABS: PHOSPHOROUS 2.8 mg/dL (2.5-4.9)
[2023-09-22 08:19] LABS: BILIRUBIN,TOTAL 1.1 mg/dL (0.2-1); TOT PROT 5.3 g/dl (6.4-8.2)
[2023-09-22] MEDS ORDERED: FUROSEMIDE 40 MG/4 ML INJECTABLE VIAL IVPUSH SCH (10:00)
[2023-09-22] MEDS: PANTOPRAZOLE SODIUM 40 MG VIAL IVPUSH SCH (10:06)
[2023-09-22] MEDS ORDERED: ENOXAPARIN NA (PORCINE) 60 MG/0.6 ML DISP.SYRIN SQ SCH (11:45)
[2023-09-22] MEDS: CHLORHEXIDINE GLUCONATE 4% CLEANSER FOR DECOLONIZATION TP SCH (21:50)
[2023-09-22] MEDS: APIXABAN 2.5 MG TABLET PO SCH (21:50)
[2023-09-23 07:26] LABS: HEMATOCRIT 28.9 % (32.4-45.2); HEMOGLOBIN 9.4 GM/dL (10.7-15.3); MCH 31.4 pg (25.7-33.7); MCHC 32.6 g/dl (32.0-36.0); MEAN CELL VOLUME 96.4 fl (80-96); MEAN PLT VOLUME 8.8 fl (7.5-11.1); PLATELET COUNT 248 10^3/uL (134-434); RDW 15.1 % (11.6-15.6); WHITE BLOOD COUNT 18.7 K/mm3 (4.0-10.0)
[2023-09-23 07:37] LABS: CHLORIDE 105 mmol/L (98-107); SODIUM 144 mmol/L (136-145)
[2023-09-23 07:44] LABS: CALCIUM 7.9 mg/dL (8.5-10.1); POTASSIUM 2.8 mmol/L (3.5-5.1)
[2023-09-23 07:45] LABS: ALBUMIN 1.9 g/dl (3.4-5.0); ANION GAP 7 mmol/L (4-13); BLOOD UREA NITROGEN 32.2 mg/dL (7-18); CO2 32 mmol/L (21-32); GLUCOSE,RANDOM 83 mg/dL (74-106)
[2023-09-23 07:48] LABS: CREATININE 0.7 mg/dL (0.55-1.3); SGOT/AST 49 U/L (15-37); SGPT/ALT 54 U/L (13-61)
[2023-09-23 07:49] LABS: BILIRUBIN,TOTAL 1.1 mg/dL (0.2-1)
[2023-09-23 07:50] LABS: TOT PROT 5.1 g/dl (6.4-8.2)
[2023-09-23 07:51] LABS: ALK PHOS 52 U/L (45-117)
[2023-09-23] MEDS: KCL 10 MEQ IVPB 10 MEQ/100 ML INFUS.BAG IVPB SCH ×3 (08:39→19:44)
[2023-09-23] MEDS: MAGNESIUM SULFATE IN WATER 2 GM/50 ML IVPB IVPB ONE (08:51)
[2023-09-23] MEDS: AMMONIUM LACTATE 12% LOTION 225 GM BOTTLE TP PRN (21:20)
[2023-09-24 06:57] LABS: POTASSIUM 3.4 mmol/L (3.5-5.1)
[2023-09-24 06:59] LABS: ALBUMIN 1.8 g/dl (3.4-5.0); BLOOD UREA NITROGEN 35.2 mg/dL (7-18); CALCIUM 7.8 mg/dL (8.5-10.1)
[2023-09-24 07:03] LABS: CREATININE 0.8 mg/dL (0.55-1.3)
[2023-09-24 07:04] LABS: BILIRUBIN,TOTAL 0.9 mg/dL (0.2-1); TOT PROT 5.1 g/dl (6.4-8.2)
[2023-09-24] MEDS: POTASSIUM CHLORIDE TABS 20 MEQ TABLET.ER (FP) PO ONE (14:35)
[2023-09-24] MEDS: SODIUM CHLORIDE 0.9% 500 ML INFUS.BAG IV ONE (21:35)
[2023-09-25 07:07] LABS: HEMATOCRIT 23.1 % (32.4-45.2); HEMOGLOBIN 7.5 GM/dL (10.7-15.3); MCH 31.6 pg (25.7-33.7); MCHC 32.3 g/dl (32.0-36.0); MEAN CELL VOLUME 97.8 fl (80-96); MEAN PLT VOLUME 8.8 fl (7.5-11.1); PLATELET COUNT 247 10^3/uL (134-434); RBC 2.36 M/mm3 (3.60-5.2); RDW 15.3 % (11.6-15.6); WHITE BLOOD COUNT 14.9 K/mm3 (4.0-10.0)
[2023-09-25 07:19] LABS: POTASSIUM 3.7 mmol/L (3.5-5.1)
[2023-09-25 07:20] LABS: BLOOD UREA NITROGEN 34.8 mg/dL (7-18); CALCIUM 7.7 mg/dL (8.5-10.1)
[2023-09-25 07:23] LABS: CREATININE 0.8 mg/dL (0.55-1.3)
[2023-09-25] MEDS: TAMSULOSIN HCL 0.4 MG CAP PO SCH (09:14)
[2023-09-25] MEDS: AMINO ACIDS/PROTEIN HYDROLYS 30 ML LIQUID.PKT PO SCH (16:59)
[2023-09-26 06:47] LABS: HEMATOCRIT 20.5 % (32.4-45.2); MCH 31.8 pg (25.7-33.7); MCHC 32.9 g/dl (32.0-36.0); MEAN CELL VOLUME 96.7 fl (80-96); MEAN PLT VOLUME 8.4 fl (7.5-11.1); PLATELET COUNT 245 10^3/uL (134-434); RBC 2.12 M/mm3 (3.60-5.2); RDW 15.2 % (11.6-15.6); WHITE BLOOD COUNT 13.3 K/mm3 (4.0-10.0)
[2023-09-26 06:55] LABS: POTASSIUM 3.3 mmol/L (3.5-5.1)
[2023-09-26 06:58] LABS: BLOOD UREA NITROGEN 30.7 mg/dL (7-18); CALCIUM 7.4 mg/dL (8.5-10.1)
[2023-09-26 07:03] LABS: CREATININE 0.7 mg/dL (0.55-1.3)
[2023-09-26 07:12] LABS: HEMOGLOBIN 6.7 GM/dL (10.7-15.3)
[2023-09-26] MEDS: POTASSIUM CHLORIDE ORAL LIQUID 20 MEQ/15 ML PO ONE (12:27)
[2023-09-26 21:01] LABS: HEMOGLOBIN 8.9 GM/dL (10.7-15.3); MCH 30.8 pg (25.7-33.7); MCHC 32.9 g/dl (32.0-36.0); MEAN CELL VOLUME 93.8 fl (80-96); PLATELET COUNT 263 10^3/uL (134-434); RBC 2.88 M/mm3 (3.60-5.2); RDW 15.8 % (11.6-15.6)
[2023-09-27 06:59] LABS: HEMATOCRIT 25.6 % (32.4-45.2); HEMOGLOBIN 8.6 GM/dL (10.7-15.3); MCH 31.7 pg (25.7-33.7); MCHC 33.6 g/dl (32.0-36.0); MEAN CELL VOLUME 94.4 fl (80-96); PLATELET COUNT 250 10^3/uL (134-434); RBC 2.72 M/mm3 (3.60-5.2); RDW 16.1 % (11.6-15.6)
[2023-09-27 07:15] LABS: POTASSIUM 3.3 mmol/L (3.5-5.1)
[2023-09-27 07:16] LABS: CALCIUM 7.4 mg/dL (8.5-10.1)
[2023-09-27 07:17] LABS: BLOOD UREA NITROGEN 27.9 mg/dL (7-18)
[2023-09-27 07:20] LABS: CREATININE 0.7 mg/dL (0.55-1.3)
[2023-09-27] MEDS: POTASSIUM CHLORIDE ORAL LIQUID 20 MEQ/15 ML PO ONE (10:14)
[2023-09-27] MEDS ORDERED: AMMONIUM LACTATE 12% LOTION 225 GM BOTTLE TP PRN (18:54)
[2023-09-27] MEDS: APIXABAN 2.5 MG TABLET PO SCH (21:00)
[2023-09-27] MEDS ORDERED: CHLORHEXIDINE GLUCONATE 4% CLEANSER FOR DECOLONIZATION TP SCH (22:00)
[2023-09-28] MEDS: NYSTATIN 500,000 UNITS/5 ML SUSPENSION PO SCH (00:53)
[2023-09-28] MEDS ORDERED: FUROSEMIDE 40 MG/4 ML INJECTABLE VIAL IVPUSH SCH (10:00)
[2023-09-28 10:02] LABS: HEMATOCRIT 29.6 % (32.4-45.2); HEMOGLOBIN 9.8 GM/dL (10.7-15.3); MCH 31.6 pg (25.7-33.7); MCHC 33.2 g/dl (32.0-36.0); MEAN CELL VOLUME 95.1 fl (80-96); PLATELET COUNT 290 10^3/uL (134-434); RBC 3.11 M/mm3 (3.60-5.2); RDW 15.6 % (11.6-15.6); WHITE BLOOD COUNT 11.7 K/mm3 (4.0-10.0)
[2023-09-28 10:19] LABS: POTASSIUM 3.6 mmol/L (3.5-5.1)
[2023-09-28 10:27] LABS: BLOOD UREA NITROGEN 24.4 mg/dL (7-18); CALCIUM 8.3 mg/dL (8.5-10.1)
[2023-09-28 10:31] LABS: CREATININE 0.6 mg/dL (0.55-1.3)
[2023-09-28] MEDS: FUROSEMIDE 40 MG TABLET (FP) PO SCH (10:56)
[2023-09-28] MEDS: PANTOPRAZOLE SODIUM 40 MG VIAL IVPUSH SCH (10:56)
[2023-09-28] MEDS: TAMSULOSIN HCL 0.4 MG CAP PO SCH (10:56)
[2023-09-28] MEDS: AMINO ACIDS/PROTEIN HYDROLYS 30 ML LIQUID.PKT PO SCH (10:56)
[2023-09-29 08:32] LABS: BASO % 0.6 % (0-2.0); EOS % 2.5 % (0-4.5); HEMATOCRIT 27.4 % (32.4-45.2); LYMPH % 8.9 % (8-40); MCH 31.5 pg (25.7-33.7); MEAN CELL VOLUME 95.3 fl (80-96); MEAN PLT VOLUME 7.8 fl (7.5-11.1); MONO % 7.3 % (3.8-10.2); NEUT % 80.7 % (42.8-82.8); PLATELET COUNT 273 10^3/uL (134-434); RBC 2.87 M/mm3 (3.60-5.2); RDW 15.7 % (11.6-15.6); WHITE BLOOD COUNT 9.2 K/mm3 (4.0-10.0)
[2023-09-29 08:50] LABS: POTASSIUM 3.6 mmol/L (3.5-5.1)
[2023-09-29 08:55] LABS: ALBUMIN 1.7 g/dl (3.4-5.0); CALCIUM 8.1 mg/dL (8.5-10.1)
[2023-09-29 08:56] LABS: BLOOD UREA NITROGEN 24.3 mg/dL (7-18); MAGNESIUM 2.2 mg/dL (1.8-2.4)
[2023-09-29 08:59] LABS: CREATININE 0.6 mg/dL (0.55-1.3); PHOSPHOROUS 2.3 mg/dL (2.5-4.9)
[2023-09-29 09:00] LABS: BILIRUBIN,TOTAL 1.1 mg/dL (0.2-1); TOT PROT 4.9 g/dl (6.4-8.2)
[2023-09-29] MEDS: POTASSIUM PHOSPHATE 15 MM in SODIUM CHLORIDE 250 ML IVPB ONE (11:21)
[2023-09-29] MEDS ORDERED: guaiFENesin/D-METHORPHAN HB 10 ML UNIT-DOSE CUPS PO PRN (11:59)
[2023-09-29] MEDS: IPRATROPIUM BR 0.02% 0.5 MG/2.5 ML VIAL.NEB. NEB SCH (12:30)
[2023-09-29 16:25] VITALS: RESP 18
[2023-10-01 09:17] LABS: HEMATOCRIT 25.5 % (32.4-45.2); HEMOGLOBIN 8.5 GM/dL (10.7-15.3); MCH 31.4 pg (25.7-33.7); MCHC 33.3 g/dl (32.0-36.0); MEAN CELL VOLUME 94.3 fl (80-96); MEAN PLT VOLUME 7.6 fl (7.5-11.1); PLATELET COUNT 257 10^3/uL (134-434); RDW 15.8 % (11.6-15.6); WHITE BLOOD COUNT 6.8 K/mm3 (4.0-10.0)
[2023-10-01 09:41] LABS: POTASSIUM 3.8 mmol/L (3.5-5.1)
[2023-10-01 09:45] LABS: BLOOD UREA NITROGEN 23.3 mg/dL (7-18); CALCIUM 7.9 mg/dL (8.5-10.1); MAGNESIUM 2.1 mg/dL (1.8-2.4)
[2023-10-01 09:48] LABS: CREATININE 0.6 mg/dL (0.55-1.3); PHOSPHOROUS 2.5 mg/dL (2.5-4.9)
[2023-10-01] MEDS: PANTOPRAZOLE 40 MG TABLET PO SCH (09:53)
[2023-10-01 18:43] VITALS: BP 136/64; PULSE 94; TEMP 98.4
== END 2023-10-01 19:23 | DRG 871 ==
LOC: JER 17:20 → JERBED 20:23 → JICU 22:03 → J2W 09-22 00:24 → J5S 09-27 18:04
PROVIDERS: ADMIT Internal Medicine Pulmonary Disease; ATTEND Internal Medicine
PROC: 5A1945Z Respiratory Ventilation, 24-96 Consecutive Hours (ICD-10-PCS; principal; 2023-09-16)
PROC: 0BH17EZ Insertion of Endotracheal Airway into Trachea, Via Natural or Artificial Opening (ICD-10-PCS; 2023-09-16)
PROC: 0HBMXZZ Excision of Right Foot Skin, External Approach (ICD-10-PCS; 2023-09-24)
PROC: 30233N1 Transfusion of Nonautologous Red Blood Cells into Peripheral Vein, Percutaneous Approach (ICD-10-PCS; 2023-09-26)
DX: A41.9 Sepsis, unspecified organism (principal); G92.8 Other toxic encephalopathy; J18.9 Pneumonia, unspecified organism; J80 Acute respiratory distress syndrome; R65.21 Severe sepsis with septic shock; K72.00 Acute and subacute hepatic failure without coma; N17.9 Acute kidney failure, unspecified; J44.0 Chronic obstructive pulmonary disease with (acute) lower respiratory infection; N39.0 Urinary tract infection, site not specified; E87.4 Mixed disorder of acid-base balance; E87.20 Acidosis, unspecified; E87.3 Alkalosis; I11.0 Hypertensive heart disease with heart failure; I48.91 Unspecified atrial fibrillation; E78.5 Hyperlipidemia, unspecified; B96.20 Unspecified Escherichia coli [E. coli] as the cause of diseases classified elsewhere; R33.9 Retention of urine, unspecified; R74.01 Elevation of levels of liver transaminase levels; L84 Corns and callosities; D72.829 Elevated white blood cell count, unspecified; B35.1 Tinea unguium; L85.3 Xerosis cutis; D64.9 Anemia, unspecified
CPT/HCPCS: 0241U-QW; 31500; 36415; 36430; 36511; 36600; 71045-TC-FY; 71250-TC; 73630-TC-RT-FY; 74230-TC-FY; 76775-TC; 76856-TC; 80048; 80053; 81003; 82272; 82570; 82803; 82962; 83605; 83735; 83880; 83935; 84100; 84300; 84436; 84479; 84484; 85025; 85027; 85610; 85730; 86850; 86900; 86901; 86922; 87040; 87070; 87077; 87086; 87186; 87205; 87635; 87899; 88304-TC; 92611-GN; 93005; 93010; 93306-TC; 94002; 94640; 94660; 97162-GP; 99291; J1644; P9038; P9058

== ENCOUNTER 2023-10-06 21:52 | Inpatient (IN) | payer OTHER, MEDICARE ==
[2023-10-06 22:56] LABS: VENOUS BASE EXCESS 1.3 mmol/L (-2-2); VENOUS O2 SATURATION 67.7 % (70-80); VENOUS PCO2 37.9 mmHg (38-52); VENOUS PH 7.443 (7.310-7.410)
[2023-10-06 22:58] LABS: HEMATOCRIT 28.4 % (32.4-45.2); HEMOGLOBIN 9.4 GM/dL (10.7-15.3); MCH 30.8 pg (25.7-33.7); MCHC 33.1 g/dl (32.0-36.0); MEAN CELL VOLUME 93.1 fl (80-96); MEAN PLT VOLUME 7.7 fl (7.5-11.1); PLATELET COUNT 398 10^3/uL (134-434); RBC 3.05 M/mm3 (3.60-5.2); RDW 16.1 % (11.6-15.6); WHITE BLOOD COUNT 11.4 K/mm3 (4.0-10.0)
[2023-10-06 23:22] LABS: ANISOCYTOSIS 0; HELMET CELLS 0; HOWELL-JOLLY BODIES 0; MACROCYTOSIS 0; OVALOCYTE 0; ROULEAU 0; SICKELED CELLS 0; TARGET CELLS 0; TEAR DROP CELLS 0; TOXIC GRANULATION 0
[2023-10-06 23:34] LABS: POTASSIUM 5.8 mmol/L (3.5-5.1)
[2023-10-06 23:36] LABS: ALBUMIN 1.7 g/dl (3.4-5.0)
[2023-10-06 23:38] LABS: BLOOD UREA NITROGEN 22.2 mg/dL (7-18)
[2023-10-06 23:40] LABS: CREATININE 0.8 mg/dL (0.55-1.3)
[2023-10-06 23:41] LABS: BILIRUBIN,TOTAL 1.5 mg/dL (0.2-1); TOT PROT 5.8 g/dl (6.4-8.2)
[2023-10-07 00:46] LABS: POTASSIUM 5.2 mmol/L (3.5-5.1)
[2023-10-07 00:48] LABS: ALBUMIN 1.7 g/dl (3.4-5.0); BLOOD UREA NITROGEN 23.8 mg/dL (7-18)
[2023-10-07 00:51] LABS: CREATININE 0.8 mg/dL (0.55-1.3)
[2023-10-07 00:52] LABS: BILIRUBIN,TOTAL 0.9 mg/dL (0.2-1)
[2023-10-07 00:53] LABS: TOT PROT 5.4 g/dl (6.4-8.2)
[2023-10-07] MEDS ORDERED: MEROPENEM 1 GM VIAL (RESTRICTED TO ID) IVPB ONE (01:24)
[2023-10-07] MEDS ORDERED: DEXAMETHASONE SOD PHOSPHATE 10 MG/1 ML VIAL ONE (01:24)
[2023-10-07] MEDS ORDERED: ACETAMINOPHEN INJECTION 100 ML ONE (01:24)
[2023-10-07] MEDS: ACETAMINOPHEN 1000 MG/100 ML BAG IVPB ONE (01:39)
[2023-10-07] MEDS: DEXAMETHASONE SOD PHOSPHATE 10 MG/1 ML VIAL IVPUSH ONE (01:39)
[2023-10-07] MEDS: MEROPENEM 1 GM in DEXTROSE 5%-WATER 100 ML IVPB ONE (01:52)
[2023-10-07] MEDS ORDERED: ACETAMINOPHEN 1000 MG/100 ML BAG IVPB PRN (03:26)
[2023-10-07] MEDS: VANCOMYCIN/WATER 1250 MG 1,250 MG/250 ML BAG IVPB SCH (04:09)
[2023-10-07] MEDS: ALBUTEROL SO4 2.5/IPRATROPIUM 0.5 INH SOL 3 ML VIAL.NEB. NEB SCH (04:30)
[2023-10-07 05:26] LABS: URINE APPEARANCE CLOUDY; URINE BILIRUBIN SMALL (NEGATIVE); URINE COLOR DK YELLOW; URINE GLUCOSE (UA) NEGATIVE (NEGATIVE)
[2023-10-07 05:27] LABS: PH,URINE 5.5 (5.0-8.0); URINE KETONE TRACE (NEGATIVE); URINE NITRITE NEGATIVE (NEGATIVE); URINE PROTEIN 3+ (NEGATIVE)
[2023-10-07 05:28] LABS: EPI CELLS 11.5 /uL (0-25.1); HYALINE CASTS 1.54 /uL (0-3.1); URINE BACTERIA 74558.4 /uL (0-1359); URINE LEUK ESTERASE 2+ (NEGATIVE); URINE RBC 207.1 /uL (0-23.9); URINE WBC 4093.2 /uL (0-25.8)
[2023-10-07 06:28] LABS: ARTERIAL BLD GAS O2 SATURATION 99.3 % (95-98); ARTERIAL BLOOD GAS BASE EXCESS 0 mmol/L (-2-2); ARTERIAL BLOOD GAS PO2 173.6 mmHg (80-100); ARTERIAL BLOOD GAS pH 7.474 (7.350-7.450)
[2023-10-07 06:29] LABS: ALLENS TEST POSITIVE
[2023-10-07] MEDS: LACTATED RINGERS SOLUTION 1000 ML INFUS.BAG IV ONE (07:16)
[2023-10-07 07:47] LABS: POTASSIUM 4.3 mmol/L (3.5-5.1)
[2023-10-07 07:49] LABS: BLOOD UREA NITROGEN 25.2 mg/dL (7-18); CALCIUM 7.7 mg/dL (8.5-10.1)
[2023-10-07 07:53] LABS: CREATININE 0.7 mg/dL (0.55-1.3)
[2023-10-07 07:54] LABS: PHOSPHOROUS 4.6 mg/dL (2.5-4.9)
[2023-10-07 08:15] LABS: BASO % 0.3 % (0-2.0); EOS % 0.1 % (0-4.5); HEMATOCRIT 22.9 % (32.4-45.2); HEMOGLOBIN 7.6 GM/dL (10.7-15.3); LYMPH % 6.6 % (8-40); MCH 30.7 pg (25.7-33.7); MCHC 33.1 g/dl (32.0-36.0); MEAN CELL VOLUME 92.8 fl (80-96); MEAN PLT VOLUME 7.6 fl (7.5-11.1); PLATELET COUNT 340 10^3/uL (134-434); RBC 2.47 M/mm3 (3.60-5.2); RDW 16.4 % (11.6-15.6); WHITE BLOOD COUNT 7.5 K/mm3 (4.0-10.0)
[2023-10-07] MEDS: methylPREDNISolone NA SUCC 40 MG/1 ML VIAL IVPUSH SCH (09:18)
[2023-10-07] MEDS: TAMSULOSIN HCL 0.4 MG CAP PO SCH (09:18)
[2023-10-07] MEDS: MEROPENEM 500 MG in DEXTROSE 5%-WATER 100 ML IVPB SCH (09:18)
[2023-10-07] MEDS: APIXABAN 2.5 MG TABLET PO SCH (09:19)
[2023-10-07] MEDS: PANTOPRAZOLE 40 MG TABLET PO SCH (09:19)
[2023-10-07] MEDS: MUPIROCIN 2% TOPICAL OINTMENT FOR DECOLONIZATION NS SCH (09:19)
[2023-10-07] MEDS ORDERED: ENOXAPARIN NA (PORCINE) 40 MG/0.4 ML DISP.SYRIN SQ SCH (10:00)
[2023-10-07] MEDS: PIPERACILLIN/TAZOB 3.375 GM 3.375 GM in DEXTROSE 5%-WATER - 50 ML IVPB SCH (17:51)
[2023-10-07] MEDS: FUROSEMIDE 40 MG/4 ML INJECTABLE VIAL IVPUSH ONE (20:26)
[2023-10-07] MEDS: CHLORHEXIDINE GLUCONATE 4% CLEANSER FOR DECOLONIZATION TP SCH (21:16)
[2023-10-08] MEDS ORDERED: VANCOMYCIN/WATER 1250 MG 1,250 MG/250 ML BAG IVPB SCH (04:00)
[2023-10-08 06:33] LABS: BASO % 0.2 % (0-2.0); HEMATOCRIT 26.8 % (32.4-45.2); LYMPH % 7.5 % (8-40); MCH 30.7 pg (25.7-33.7); MCHC 33.6 g/dl (32.0-36.0); MEAN CELL VOLUME 91.3 fl (80-96); MEAN PLT VOLUME 7.4 fl (7.5-11.1); MONO % 6.9 % (3.8-10.2); NEUT % 85.4 % (42.8-82.8); PLATELET COUNT 467 10^3/uL (134-434); RBC 2.93 M/mm3 (3.60-5.2); RDW 16.1 % (11.6-15.6); WHITE BLOOD COUNT 9.5 K/mm3 (4.0-10.0)
[2023-10-08 06:43] LABS: POTASSIUM 3.9 mmol/L (3.5-5.1)
[2023-10-08 06:47] LABS: ALBUMIN 1.8 g/dl (3.4-5.0); BLOOD UREA NITROGEN 29.3 mg/dL (7-18); CALCIUM 8.3 mg/dL (8.5-10.1); MAGNESIUM 2.1 mg/dL (1.8-2.4)
[2023-10-08 06:50] LABS: CREATININE 0.8 mg/dL (0.55-1.3)
[2023-10-08 06:51] LABS: PHOSPHOROUS 4.3 mg/dL (2.5-4.9)
[2023-10-08 06:52] LABS: BILIRUBIN,TOTAL 0.7 mg/dL (0.2-1); TOT PROT 5.5 g/dl (6.4-8.2)
[2023-10-08] MEDS ORDERED: MEROPENEM 500 MG in DEXTROSE 5%-WATER 100 ML IVPB SCH (10:00)
[2023-10-08] MEDS: FUROSEMIDE 40 MG/4 ML INJECTABLE VIAL IVPUSH ONE (10:14)
[2023-10-08] MEDS: methylPREDNISolone NA SUCC 40 MG/1 ML VIAL IVPUSH SCH (21:00)
[2023-10-09 07:52] LABS: HEMATOCRIT 25.6 % (32.4-45.2); HEMOGLOBIN 8.5 GM/dL (10.7-15.3); MCH 30.5 pg (25.7-33.7); MCHC 33.2 g/dl (32.0-36.0); MEAN CELL VOLUME 91.8 fl (80-96); MEAN PLT VOLUME 7.4 fl (7.5-11.1); PLATELET COUNT 451 10^3/uL (134-434); RBC 2.79 M/mm3 (3.60-5.2); RDW 16.9 % (11.6-15.6); WHITE BLOOD COUNT 8.6 K/mm3 (4.0-10.0)
[2023-10-09 07:53] LABS: POTASSIUM 3.7 mmol/L (3.5-5.1)
[2023-10-09 07:55] LABS: ALBUMIN 1.8 g/dl (3.4-5.0); BLOOD UREA NITROGEN 35.7 mg/dL (7-18)
[2023-10-09 07:56] LABS: CALCIUM 7.9 mg/dL (8.5-10.1)
[2023-10-09 07:59] LABS: CREATININE 0.9 mg/dL (0.55-1.3)
[2023-10-09 08:00] LABS: BILIRUBIN,TOTAL 0.5 mg/dL (0.2-1); TOT PROT 5.2 g/dl (6.4-8.2)
[2023-10-09] MEDS: guaiFENesin 200 MG/10 ML 10 ML UNIT-DOSE CUPS PO PRN (21:39)
[2023-10-10 07:34] LABS: HEMOGLOBIN 9.2 GM/dL (10.7-15.3); MCH 30.4 pg (25.7-33.7); MCHC 32.9 g/dl (32.0-36.0); MEAN CELL VOLUME 92.5 fl (80-96); MEAN PLT VOLUME 7.6 fl (7.5-11.1); PLATELET COUNT 463 10^3/uL (134-434); RBC 3.03 M/mm3 (3.60-5.2); RDW 16.2 % (11.6-15.6); WHITE BLOOD COUNT 8.1 K/mm3 (4.0-10.0)
[2023-10-10 07:35] LABS: ALBUMIN 1.8 g/dl (3.4-5.0); BLOOD UREA NITROGEN 27.6 mg/dL (7-18); CALCIUM 8.1 mg/dL (8.5-10.1)
[2023-10-10 07:37] LABS: MAGNESIUM 2.2 mg/dL (1.8-2.4)
[2023-10-10 07:39] LABS: CREATININE 0.6 mg/dL (0.55-1.3)
[2023-10-10 07:40] LABS: BILIRUBIN,TOTAL 0.6 mg/dL (0.2-1); TOT PROT 5.2 g/dl (6.4-8.2)
[2023-10-10] MEDS: PNEUMOC 20-VAL CONJ-DIP CRM/PF 0.5 ML SYRINGE IM ONE (11:48)
[2023-10-10] MEDS: FUROSEMIDE 40 MG/4 ML INJECTABLE VIAL IVPUSH SCH (11:48)
[2023-10-12 08:08] LABS: HEMATOCRIT 28.6 % (32.4-45.2); HEMOGLOBIN 9.5 GM/dL (10.7-15.3); MCH 30.2 pg (25.7-33.7); MCHC 33.3 g/dl (32.0-36.0); MEAN CELL VOLUME 90.6 fl (80-96); MEAN PLT VOLUME 7.3 fl (7.5-11.1); PLATELET COUNT 461 10^3/uL (134-434); RBC 3.16 M/mm3 (3.60-5.2); RDW 17.2 % (11.6-15.6); WHITE BLOOD COUNT 11.9 K/mm3 (4.0-10.0)
[2023-10-12 08:12] LABS: POTASSIUM 3.5 mmol/L (3.5-5.1)
[2023-10-12 08:18] LABS: ALBUMIN 1.9 g/dl (3.4-5.0); BLOOD UREA NITROGEN 21.6 mg/dL (7-18)
[2023-10-12 08:21] LABS: CREATININE 0.6 mg/dL (0.55-1.3)
[2023-10-12 08:22] LABS: BILIRUBIN,TOTAL 0.7 mg/dL (0.2-1)
[2023-10-12 13:23] VITALS: BMI 25.7
[2023-10-13] MEDS: dilTIAZem HCL 30 MG TABLET PO SCH (12:45)
[2023-10-13 16:10] LABS: POTASSIUM 3.1 mmol/L (3.5-5.1)
[2023-10-13 16:12] LABS: BLOOD UREA NITROGEN 22.2 mg/dL (7-18); CALCIUM 7.9 mg/dL (8.5-10.1)
[2023-10-13 16:16] LABS: CREATININE 0.8 mg/dL (0.55-1.3)
[2023-10-13] MEDS: KCL 10 MEQ IVPB 10 MEQ/100 ML INFUS.BAG IVPB SCH (19:08)
[2023-10-13] MEDS: POTASSIUM CHLORIDE ORAL LIQUID 20 MEQ/15 ML PO ONE (19:11)
[2023-10-14 07:17] LABS: HEMATOCRIT 33.5 % (32.4-45.2); MCH 30.1 pg (25.7-33.7); MCHC 32.7 g/dl (32.0-36.0); MEAN CELL VOLUME 91.9 fl (80-96); MEAN PLT VOLUME 7.6 fl (7.5-11.1); PLATELET COUNT 426 10^3/uL (134-434); RBC 3.64 M/mm3 (3.60-5.2); RDW 17.7 % (11.6-15.6)
[2023-10-14 07:22] LABS: POTASSIUM 3.9 mmol/L (3.5-5.1)
[2023-10-14 07:24] LABS: BLOOD UREA NITROGEN 20.7 mg/dL (7-18); CALCIUM 7.9 mg/dL (8.5-10.1)
[2023-10-14 07:27] LABS: CREATININE 0.7 mg/dL (0.55-1.3)
[2023-10-14 07:29] LABS: BILIRUBIN,TOTAL 0.8 mg/dL (0.2-1); TOT PROT 5.3 g/dl (6.4-8.2)
[2023-10-14] MEDS ORDERED: guaiFENesin 200 MG/10 ML 10 ML UNIT-DOSE CUPS PO PRN (07:57)
[2023-10-14 09:33] LABS: ANISOCYTOSIS 0; MACROCYTOSIS 0
[2023-10-14] MEDS: TAMSULOSIN HCL 0.4 MG CAP PO SCH (09:33)
[2023-10-14] MEDS: APIXABAN 2.5 MG TABLET PO SCH (09:33)
[2023-10-14] MEDS: PANTOPRAZOLE 40 MG TABLET PO SCH (09:33)
[2023-10-14] MEDS: PIPERACILLIN/TAZOB 3.375 GM 3.375 GM in DEXTROSE 5%-WATER - 50 ML IVPB SCH (09:34)
[2023-10-14] MEDS: FUROSEMIDE 40 MG/4 ML INJECTABLE VIAL IVPUSH SCH (09:34)
[2023-10-15 08:09] LABS: HEMATOCRIT 32.4 % (32.4-45.2); HEMOGLOBIN 10.7 GM/dL (10.7-15.3); MEAN CELL VOLUME 90.9 fl (80-96); MEAN PLT VOLUME 7.8 fl (7.5-11.1); PLATELET COUNT 308 10^3/uL (134-434); RBC 3.56 M/mm3 (3.60-5.2); RDW 17.7 % (11.6-15.6); WHITE BLOOD COUNT 11.3 K/mm3 (4.0-10.0)
[2023-10-15 08:21] LABS: POTASSIUM 3.7 mmol/L (3.5-5.1)
[2023-10-15 08:27] LABS: ALBUMIN 1.9 g/dl (3.4-5.0)
[2023-10-15 08:28] LABS: BLOOD UREA NITROGEN 16.2 mg/dL (7-18)
[2023-10-15 08:31] LABS: CREATININE 0.7 mg/dL (0.55-1.3)
[2023-10-15 08:32] LABS: BILIRUBIN,TOTAL 0.7 mg/dL (0.2-1); TOT PROT 4.9 g/dl (6.4-8.2)
[2023-10-15 09:02] LABS: ANISOCYTOSIS 0; MACROCYTOSIS 0
[2023-10-16] MEDS: AMINO ACIDS/PROTEIN HYDROLYS 30 ML LIQUID.PKT PO SCH (17:32)
[2023-10-16 18:16] VITALS: RESP 18
[2023-10-17] MEDS: CEFUROXIME AXETIL 250 MG TABLET PO SCH (09:26)
[2023-10-17] MEDS: ASCORBIC ACID 500 MG TABLET (FP) PO SCH (09:26)
[2023-10-17] MEDS: ZINC SULFATE 220 MG CAPSULE (FP) PO SCH (09:26)
[2023-10-17 11:57] LABS: MCH 30.1 pg (25.7-33.7); MCHC 33.2 g/dl (32.0-36.0); MEAN CELL VOLUME 90.6 fl (80-96); PLATELET COUNT 269 10^3/uL (134-434); RBC 3.31 M/mm3 (3.60-5.2)
[2023-10-17 18:54] VITALS: BP 128/56; PULSE 106; TEMP 97.5
== END 2023-10-17 18:55 | DRG 189 ==
LOC: JER 21:52 → JICU 10-07 00:37 → J4W 10-12 21:42
PROVIDERS: ADMIT Internal Medicine Pulmonary Disease; ATTEND Family Medicine
DX: J96.01 Acute respiratory failure with hypoxia (principal); J18.9 Pneumonia, unspecified organism; J44.1 Chronic obstructive pulmonary disease with (acute) exacerbation; N39.0 Urinary tract infection, site not specified; J44.0 Chronic obstructive pulmonary disease with (acute) lower respiratory infection; I48.91 Unspecified atrial fibrillation; Z79.01 Long term (current) use of anticoagulants; J44.9 Chronic obstructive pulmonary disease, unspecified; Z99.81 Dependence on supplemental oxygen; K20.90 Esophagitis, unspecified without bleeding; I50.9 Heart failure, unspecified; I11.0 Hypertensive heart disease with heart failure; D64.9 Anemia, unspecified
CPT/HCPCS: 0241U-QW; 36415; 36600; 71045-TC-FY; 80048; 80053; 81003; 82308; 82728; 82803; 82962; 83540; 83550; 83605; 83735; 83880; 84100; 84466; 84484; 85025; 85027; 86140; 87040; 87086; 87186; 87635; 87899; 90677; 93005; 93010; 94640; 97161-GP; 99285-25; G0009; J0131; J1100

== ENCOUNTER 2023-10-28 13:23 | Inpatient (IN) | payer OTHER, MEDICARE ==
[2023-10-28 15:33] LABS: HEMATOCRIT 30.9 % (32.4-45.2); HEMOGLOBIN 9.8 GM/dL (10.7-15.3); MCHC 31.8 g/dl (32.0-36.0); MEAN CELL VOLUME 91.2 fl (80-96); MEAN PLT VOLUME 7.4 fl (7.5-11.1); PLATELET COUNT 370 10^3/uL (134-434); RBC 3.39 M/mm3 (3.60-5.2); RDW 19.8 % (11.6-15.6); WHITE BLOOD COUNT 8.4 K/mm3 (4.0-10.0)
[2023-10-28 15:35] LABS: VENOUS BASE EXCESS -2.4 mmol/L (-2-2); VENOUS O2 SATURATION 31.3 % (70-80); VENOUS PCO2 39.5 mmHg (38-52); VENOUS PH 7.375 (7.310-7.410)
[2023-10-28 15:36] LABS: INR 1.4 (0.83-1.09); PROTHROMBIN TIME (PATIENT) 15.9 SEC (9.7-13.0)
[2023-10-28 15:39] LABS: ACTIVATED PTT 32.5 SECONDS (25.2-36.5)
[2023-10-28 15:54] LABS: ANISOCYTOSIS 1+; MACROCYTOSIS 1+
[2023-10-28 16:39] LABS: POTASSIUM 4.6 mmol/L (3.5-5.1)
[2023-10-28 16:41] LABS: CALCIUM 8.6 mg/dL (8.5-10.1)
[2023-10-28 16:42] LABS: ALBUMIN 2.1 g/dl (3.4-5.0); BLOOD UREA NITROGEN 19.7 mg/dL (7-18)
[2023-10-28 16:45] LABS: CREATININE 0.5 mg/dL (0.55-1.3)
[2023-10-28 16:46] LABS: BILIRUBIN,TOTAL 0.4 mg/dL (0.2-1)
[2023-10-28 16:49] LABS: N-TERMINAL BNP 3518.8 pg/ml (5-450)
[2023-10-28] MEDS ORDERED: FUROSEMIDE 40 MG/4 ML INJECTABLE VIAL ONE (19:25)
[2023-10-28] MEDS ORDERED: PIPERACILLIN/TAZOB 4.5 GM 4.5 GM/100 ML BAG IVPB ONE (19:25)
[2023-10-28] MEDS ORDERED: VANCOMYCIN 1 GRAM (PRE-DOCKED) 1,000 MG/250 ML BAG IVPB ONE (19:25)
[2023-10-28] MEDS ORDERED: AZITHROMYCIN IVPB 500 MG/250 ML BAG IVPB ONE (19:26)
[2023-10-28] MEDS: PIPERACILLIN/TAZOB 4.5 GM 4.5 GM in DEXTROSE 5%-WATER 100 ML IVPB ONE (19:34)
[2023-10-28] MEDS: AZITHROMYCIN IVPB 500 MG in DEXTROSE 5%-WATER - 250 ML IVPB ONE (20:12)
[2023-10-28] MEDS: VANCOMYCIN 1,000 MG in DEXTROSE 5%-WATER - 250 ML IVPB ONE (20:12)
[2023-10-28] MEDS: FUROSEMIDE 40 MG/4 ML INJECTABLE VIAL IVPUSH ONE (20:12)
[2023-10-28 20:24] LABS: EPI CELLS 18 /uL (0-25.1); HYALINE CASTS 1 /uL (0-3.1); URINE APPEARANCE CLEAR; URINE BACTERIA 10 /uL (0-1359); URINE BILIRUBIN NEGATIVE (NEGATIVE); URINE COLOR YELLOW; URINE GLUCOSE (UA) NEGATIVE (NEGATIVE); URINE KETONE NEGATIVE (NEGATIVE); URINE LEUK ESTERASE 2+ (NEGATIVE); URINE NITRITE NEGATIVE (NEGATIVE); URINE PROTEIN NEGATIVE (NEGATIVE); URINE RBC 27 /uL (0-23.9); URINE UROBILINOGEN 0.2 mg/dL (0.2-1.0); URINE WBC 350 /uL (0-25.8)
[2023-10-28] MEDS: FUROSEMIDE 40 MG/4 ML INJECTABLE VIAL IVPUSH SCH (20:40)
[2023-10-28] MEDS ORDERED: ACETAMINOPHEN 325 MG TABLET (FP) PO PRN (22:39)
[2023-10-29] MEDS: PIPERACILLIN/TAZOB 2.25 GM 2.25 GM in DEXTROSE 5%-WATER - 50 ML IVPB SCH ×2 (03:27→16:07)
[2023-10-29] MEDS ORDERED: PIPERACILLIN/TAZOB 2.25 GM 2.25 GM/50 ML BAG IVPB ONE ×2 (03:39→08:49)
[2023-10-29 07:45] LABS: HEMATOCRIT 30.7 % (32.4-45.2); HEMOGLOBIN 9.9 GM/dL (10.7-15.3); MCH 29.5 pg (25.7-33.7); MCHC 32.3 g/dl (32.0-36.0); MEAN CELL VOLUME 91.1 fl (80-96); MEAN PLT VOLUME 7.5 fl (7.5-11.1); PLATELET COUNT 368 10^3/uL (134-434); RBC 3.37 M/mm3 (3.60-5.2); RDW 19.5 % (11.6-15.6); WHITE BLOOD COUNT 10.4 K/mm3 (4.0-10.0)
[2023-10-29 07:46] LABS: POTASSIUM 4.1 mmol/L (3.5-5.1)
[2023-10-29 07:49] LABS: BLOOD UREA NITROGEN 16.6 mg/dL (7-18); CALCIUM 8.5 mg/dL (8.5-10.1)
[2023-10-29 07:53] LABS: CREATININE 0.5 mg/dL (0.55-1.3)
[2023-10-29 07:55] LABS: BILIRUBIN,TOTAL 0.6 mg/dL (0.2-1); TOT PROT 5.5 g/dl (6.4-8.2)
[2023-10-29] MEDS ORDERED: PANTOPRAZOLE 40 MG TABLET PO ONE (08:48)
[2023-10-29] MEDS ORDERED: TAMSULOSIN HCL 0.4 MG CAP ONE (08:48)
[2023-10-29] MEDS ORDERED: APIXABAN 2.5 MG TABLET ONE (08:48)
[2023-10-29] MEDS ORDERED: FUROSEMIDE 40 MG/4 ML INJECTABLE VIAL ONE (08:49)
[2023-10-29 09:02] LABS: ANISOCYTOSIS 0; MACROCYTOSIS 0
[2023-10-29] MEDS ORDERED: ACETAMINOPHEN 325 MG TABLET (FP) PO PRN (09:14)
[2023-10-29] MEDS: TAMSULOSIN HCL 0.4 MG CAP PO SCH (09:50)
[2023-10-29] MEDS: PANTOPRAZOLE 40 MG TABLET PO SCH (09:51)
[2023-10-29] MEDS: FUROSEMIDE 40 MG/4 ML INJECTABLE VIAL IVPUSH SCH (09:51)
[2023-10-29] MEDS: APIXABAN 2.5 MG TABLET PO SCH (09:51)
[2023-10-29] MEDS: AMINO ACIDS/PROTEIN HYDROLYS 30 ML LIQUID.PKT PO SCH (12:14)
[2023-10-29] MEDS: ALBUTEROL SO4 2.5/IPRATROPIUM 0.5 INH SOL 3 ML VIAL.NEB. NEB PRN (12:18)
[2023-10-29] MEDS ORDERED: NICARDIPINE 25 MG in DEXTROSE 5%-WATER - 240 ML IVPB SCH (12:30)
[2023-10-29 15:00] LABS: BF WBC & OTHER NUCLEATED CELLS 3636 /mm3
[2023-10-29 15:01] LABS: BODY FLUID MACROPHAGES 15 %; BODY FLUID MESOTHELIAL 7 %
[2023-10-29 17:25] VITALS: BMI 28.2
[2023-10-31 14:09] LABS: BODY FLUID ALBUMIN 1.4 g/dL (Not Estab.)
[2023-10-31] MEDS: DOCUSATE SODIUM 100 MG CAPSULE (FP) PO SCH (21:37)
[2023-10-31] MEDS: guaiFENesin 200 MG/10 ML 10 ML UNIT-DOSE CUPS PO PRN (23:34)
[2023-11-01 10:18] LABS: HEMATOCRIT 32.8 % (32.4-45.2); HEMOGLOBIN 10.7 GM/dL (10.7-15.3); MCH 29.4 pg (25.7-33.7); MCHC 32.6 g/dl (32.0-36.0); MEAN CELL VOLUME 90.4 fl (80-96); MEAN PLT VOLUME 7.4 fl (7.5-11.1); PLATELET COUNT 406 10^3/uL (134-434); RBC 3.63 M/mm3 (3.60-5.2); RDW 19.1 % (11.6-15.6); WHITE BLOOD COUNT 6.6 K/mm3 (4.0-10.0)
[2023-11-01 11:05] LABS: ANISOCYTOSIS 1+; MACROCYTOSIS 0
[2023-11-01 11:41] LABS: BLOOD UREA NITROGEN 18.5 mg/dL (7-18); CALCIUM 8.3 mg/dL (8.5-10.1)
[2023-11-01 11:45] LABS: CREATININE 0.5 mg/dL (0.55-1.3)
[2023-11-03 07:50] LABS: HEMATOCRIT 30.6 % (32.4-45.2); HEMOGLOBIN 9.8 GM/dL (10.7-15.3); MCH 28.5 pg (25.7-33.7); MCHC 31.9 g/dl (32.0-36.0); MEAN CELL VOLUME 89.3 fl (80-96); MEAN PLT VOLUME 7.5 fl (7.5-11.1); PLATELET COUNT 423 10^3/uL (134-434); RBC 3.43 M/mm3 (3.60-5.2); RDW 19.4 % (11.6-15.6); WHITE BLOOD COUNT 8.1 K/mm3 (4.0-10.0)
[2023-11-03 08:07] LABS: POTASSIUM 3.9 mmol/L (3.5-5.1)
[2023-11-03 08:10] LABS: CALCIUM 8.3 mg/dL (8.5-10.1)
[2023-11-03 08:11] LABS: ALBUMIN 1.9 g/dl (3.4-5.0)
[2023-11-03 08:14] LABS: CREATININE 0.4 mg/dL (0.55-1.3)
[2023-11-03 08:15] LABS: BILIRUBIN,TOTAL 0.3 mg/dL (0.2-1); TOT PROT 5.3 g/dl (6.4-8.2)
[2023-11-03 10:53] LABS: ANISOCYTOSIS 1+; MACROCYTOSIS 0
[2023-11-03 17:45] VITALS: BP 120/55; PULSE 81; RESP 17; TEMP 98.1
== END 2023-11-03 21:05 | DRG 291 ==
LOC: JER 13:23 → JERBED 17:28 → J4S 10-29 11:41
PROVIDERS: ADMIT Internal Medicine; ATTEND Internal Medicine
PROC: 0W9B3ZZ Drainage of Left Pleural Cavity, Percutaneous Approach (ICD-10-PCS; principal; 2023-10-29)
DX: I11.0 Hypertensive heart disease with heart failure (principal); I50.33 Acute on chronic diastolic (congestive) heart failure; J96.21 Acute and chronic respiratory failure with hypoxia; J44.0 Chronic obstructive pulmonary disease with (acute) lower respiratory infection; E78.5 Hyperlipidemia, unspecified; I48.91 Unspecified atrial fibrillation; R33.9 Retention of urine, unspecified
CPT/HCPCS: 0241U-QW; 36415; 71045-TC-FY; 71046-TC-FY; 71275-TC; 74230-TC-FY; 76942; 80048; 80053; 81003; 82042; 82150; 82465; 82803; 82945; 83615; 83735; 83880; 83986; 84157; 84478; 84484; 85025; 85610; 85730; 86850; 86900; 86901; 87040; 87070; 87075; 87086; 87102; 87116; 87205; 87206; 87210; 87635; 87899; 88108; 88305-TC; 92611-GN; 93005; 93010; 94640; 97161-GP; 99285-25; Q9967